=== PATIENT | female | born 1970 | race Caucasian/White ===

== ENCOUNTER → 2017-04-19 | Outpatient (CLI) | payer BC, SELFPAY | PROVIDERS: Visit Provider Internal Medicine Infectious Disease | DX: T36.4X5A Adverse effect of tetracyclines, initial encounter (principal); B96.81 Helicobacter pylori [H. pylori] as the cause of diseases classified elsewhere; E66.09 Other obesity due to excess calories; F17.210 Nicotine dependence, cigarettes, uncomplicated | CPT/HCPCS: 87338 ==

== ENCOUNTER 2017-05-03 01:51 | Emergency (ER) | payer BC, SELFPAY ==
[2017-05-03 02:01] VITALS: BMI 24.1
[2017-05-03 02:02] VITALS: BP 128/95; PULSE 107; RESP 24; TEMP 36.4; O2SAT 95; BMI 24.1
--- NOTE | 2017-05-03 02:13 | XR_ITS ---
XR chest 2V HISTORY: ITS.REASON: C/O COUGH AND FLU LIKE SYMPTOMS ORDERING PHYSICIAN: Gene Herring MD PATIENT AGE: 47 years COMPARISON: 11/20/2016 FINDINGS: The cardiomediastinal silhouette and pulmonary vascularity are within normal limits. The lungs are clear without infiltrates, suspicious nodules, or pleural effusions. No acute bony abnormalities. IMPRESSION: Negative chest, no acute finding
[2017-05-03 02:30] LABS: Basophils # 0.1 K/mm3 (0-0.2); Basophils % 0.4 % (0.1-2.0); Eosinophils # 0.3 K/mm3 (0.0-0.4); Eosinophils % 1.7 % (0.1-12.0); Hematocrit 41.1 % (37.0-47.0); Hemoglobin 14.6 g/dL (12.2-16.2); Lymphocytes # 2.9 K/mm3 (0.7-4.5); Lymphocytes % 19.5 K/mm3 (10-50); Mean Corpuscular HGB Conc 35.5 g/dL (31.8-35.4); Mean Corpuscular Hemoglobin 31.1 pg (27.0-31.2); Mean Corpuscular Volume 87.6 fl (81-99); Mean Platelet Volume 8.4 fl (7.4-10.4); Monocytes # 0.8 K/mm3 (0.1-1.0); Monocytes % 5.2 % (1.7-9.3); Neutrophils % 73.3 % (37.0-80.0); Platelet Count 236 K/mm3 (142-424); Red Blood Count 4.69 M/mm3 (4.20-5.40)
--- NOTE | 2017-05-03 02:31 | HMH.EDGENADL ---
ED Disposition Clinical Impression: Bronchitis Disposition: Home, Self-Care Condition on Discharge: Good Instructions: DI for Acute Bronchitis Additional Instructions: fluids and see pcp for follow up Prescriptions: Benzonatate [Tessalon Perle 100mg Cap] 100 mg PO TID #30 cap cephALEXin [Keflex 500mg Cap] 500 mg PO TID #30 cap Referrals: Pia Rooney PA [Primary Care Provider] - - Critical Care Critical Care Time: No Attestation: On 05/03/17, the high probability of a clinically significant, sudden or life threatening deterioration of the following system(s) required my full and direct attention, intervention and personal management. The time I documented below is in addition to time spent performing reported procedures but includes the following listed in this critical care notation. Medical Decision Making - Medical Records Medical records reviewed: Yes: I reviewed the patient's medical records. Vital Signs: 05/03/17 02:02 05/03/17 03:25 05/03/17 04:37 Temperature 97.5 F L 98 F Temperature Source Oral Oral Pulse Rate [Left Brachial] 107 H 92 H 98 H Respiratory Rate 24 20 18 Blood Pressure [Left Arm] 128/95 100/63 125/77 Blood Pressure Mean [Left Arm] 106 75 93 Blood Pressure Source [Left Arm] Automatic Cuff Automatic Cuff Automatic Cuff Blood Pressure Position [Left Arm] Supine Supine Supine 02 Sat by Pulse Oximetry 95 98 100 Oxygen Delivery Method Room Air Room Air Room Air - Lab Data Lab results reviewed: Yes: I reviewed the patient's lab results. Lab Results 05/03/17 02:13: WBC 15.0 H, RBC 4.69, Hgb 14.6, Hct 41.1, MCV 87.6, MCH 31.1, MCHC 35.5 H, RDW 12.0, Plt Count 236, MPV 8.4, Neut % (Auto) 73.3, Lymph % (Auto) 19.5, [place] % (Auto) 5.2, Eos % (Auto) 1.7, Baso % (Auto) 0.4, Neut # (Auto) 11.0 H, Lymph # (Auto) 2.9, [place] # (Auto) 0.8, Eos # (Auto) 0.3, Baso # (Auto) 0.1, Total Counted 100, Neutrophils % (Manual) 68, Lymphocytes % (Manual) 26, Monocytes % (Manual) 4, Eosinophils % (Manual) 2, Platelet Estimate Normal, Anisocytosis 1+ 05/03/17 02:13: Sodium 135 L, Potassium 3.4 L, Chloride 99, Carbon Dioxide 24, Anion Gap 15.4 H, BUN 20 H, Creatinine 1.06 H, Estimated Creat Clear 67, Estimated GFR 55 L, Est GFR ( Amer) 67, Glucose 113 H, Calcium 9.4, Total Bilirubin 0.5, AST 55 H, ALT 85 H, Alkaline Phosphatase 168 H, Total Protein 8.3 H, Albumin 4.2, Globulin 4.1 H, Albumin/Globulin Ratio 1.0 L, Amylase 22 L, Lipase 93 05/03/17 02:13: Influenza Type A Ag Negative, Influenza Type B Ag Negative 05/03/17 04:35: Urine Color Dark yellow, Urine Appearance Clear, Urine pH 6.0, Ur Specific [place] 1.010, Urine Protein Negative, Urine Glucose (UA) Negative, Urine Ketones 2+, Urine Blood 1+, Urine Nitrate Negative, Urine Bilirubin Negative, Urine Urobilinogen 0.2, Ur Leukocyte Esterase 1+ A, Urine RBC 5-10, Urine WBC 5-10, Ur Squamous Epith Cells 5-10, Urine Bacteria 1+, Hyaline Casts Occasional, Urine Mucus 1+ Result diagrams: 05/03/17 02:13 05/03/17 02:13 Orders (Tests/Meds): ED MEDICATIONS Generic Name Dose Route Start Last Admin Trade Name Freq PRN Reason Stop Dose Admin Sodium Chloride 1,000 mls @ 999 mls/hr 05/03/17 03:30 05/03/17 03:24 Sod Chloride 0.9% 1000ml Bag IV 05/03/17 05:30 999 mls/hr .Q1H1M BARRERA Administration Discontinued Medications Generic Name Dose Route Start Last Admin Trade Name Freq PRN Reason Stop Dose Admin Sodium Chloride 1,000 mls @ 999 mls/hr 05/03/17 02:15 05/03/17 02:17 Sod Chloride 0.9% 1000ml Bag IV 05/03/17 03:15 999 mls/hr .Q1H1M BARRERA Administration ORDERS Category Date Time Status Chest XR 2 view (NOT portable) [XR chest 2V] Stat Exams 05/03/17 02:13 Taken Urine Culture Stat Micro 01/12/18 04:35 Received - Radiology Data #1 Image(s): Chest Image Reviewed: Yes I reviewed the patient's radiology image Preliminary Findings: Normal/NAD - Lorenzo Inquiry Pt receiving controlled substance: No Gener
--- NOTE | 2017-05-03 02:34 | ED_ITS ---
ED Disposition Clinical Impression: Bronchitis Disposition: Home, Self-Care Condition on Discharge: Good Instructions: DI for Acute Bronchitis Additional Instructions: fluids and see pcp for follow up Prescriptions: Benzonatate [Tessalon Perle 100mg Cap] 100 mg PO TID #30 cap cephALEXin [Keflex 500mg Cap] 500 mg PO TID #30 cap Referrals: Pia Rooney PA [Primary Care Provider] - - Critical Care Critical Care Time: No Attestation: On 05/03/17, the high probability of a clinically significant, sudden or life threatening deterioration of the following system(s) required my full and direct attention, intervention and personal management. The time I documented below is in addition to time spent performing reported procedures but includes the following listed in this critical care notation. Medical Decision Making - Medical Records Medical records reviewed: Yes: I reviewed the patient's medical records. Vital Signs: 05/03/17 02:02 05/03/17 03:25 05/03/17 04:37 Temperature 97.5 F L 98 F Temperature Source Oral Oral Pulse Rate [Left Brachial] 107 H 92 H 98 H Respiratory Rate 24 20 18 Blood Pressure [Left Arm] 128/95 100/63 125/77 Blood Pressure Mean [Left Arm] 106 75 93 Blood Pressure Source [Left Arm] Automatic Cuff Automatic Cuff Automatic Cuff Blood Pressure Position [Left Arm] Supine Supine Supine 02 Sat by Pulse Oximetry 95 98 100 Oxygen Delivery Method Room Air Room Air Room Air - Lab Data Lab results reviewed: Yes: I reviewed the patient's lab results. Lab Results 05/03/17 02:13: WBC 15.0 H, RBC 4.69, Hgb 14.6, Hct 41.1, MCV 87.6, MCH 31.1, MCHC 35.5 H, RDW 12.0, Plt Count 236, MPV 8.4, Neut % (Auto) 73.3, Lymph % (Auto ) 19.5, [place] % (Auto) 5.2, Eos % (Auto) 1.7, Baso % (Auto) 0.4, Neut # (Auto) 11.0 H, Lymph # (Auto) 2.9, [place] # (Auto) 0.8, Eos # (Auto) 0.3, Baso # (Auto) 0.1, Total Counted 100, Neutrophils % (Manual) 68, Lymphocytes % (Manual) 26, Monocytes % (Manual) 4, Eosinophils % (Manual) 2, Platelet Estimate Normal, Anisocytosis 1+ 05/03/17 02:13: Sodium 135 L, Potassium 3.4 L, Chloride 99, Carbon Dioxide 24, Anion Gap 15.4 H, BUN 20 H, Creatinine 1.06 H, Estimated Creat Clear 67, Estimated GFR 55 L, Est GFR ( Amer) 67, Glucose 113 H, Calcium 9.4, Total Bilirubin 0.5, AST 55 H, ALT 85 H, Alkaline Phosphatase 168 H, Total Protein 8.3 H, Albumin 4.2, Globulin 4.1 H, Albumin/Globulin Ratio 1.0 L, Amylase 22 L, Lipase 93 05/03/17 02:13: Influenza Type A Ag Negative, Influenza Type B Ag Negative 05/03/17 04:35: Urine Color Dark yellow, Urine Appearance Clear, Urine pH 6.0, Ur Specific [place] 1.010, Urine Protein Negative, Urine Glucose (UA) Negative, Urine Ketones 2+, Urine Blood 1+, Urine Nitrate Negative, Urine Bilirubin Negative, Urine Urobilinogen 0.2, Ur Leukocyte Esterase 1+ A, Urine RBC 5-10, Urine WBC 5-10, Ur Squamous Epith Cells 5-10, Urine Bacteria 1+, Hyaline Casts Occasional, Urine Mucus 1+ Result diagrams: 05/03/17 02:13 05/03/17 02:13 Orders (Tests/Meds): ED MEDICATIONS Generic Name Dose Route Start Last Admin Trade Name Freq PRN Reason Stop Dose Admin Sodium Chloride 1,000 mls @ 999 mls/hr 05/03/17 03:30 05/03/17 03:24 Sod Chloride 0.9% 1000ml Bag IV 05/03/17 05:30 999 mls/hr .Q1H1M BARRERA Administration Discontinued Medications Generic Name Dose Route Start Last Admin Trade Name Freq PRN Reason Stop Dose Admin Sod
[2017-05-03 02:43] LABS: Alanine Aminotransferase 85 U/L (12-78); Albumin Level 4.2 gm/dL (3.4-5.0); Alkaline Phosphatase 168 U/L (46-116); Amylase 22 U/L (25-125); Anion Gap 15.4 mEq/L (5-15); Aspartate Amino Transferase 55 U/L (15-37); Bilirubin,Total 0.5 mg/dL (0.2-1.0); Blood Urea Nitrogen 20 mg/dL (7-18); Calcium 9.4 mg/dL (8.5-10.1); Carbon Dioxide 24 mmol/L (21.0-32.0); Chloride 99 mmol/L (98-107); Creatinine Clearance Estimated 67 mL/min (0-300); Creatinine,Serum 1.06 mg/dL (0.55-1.02); Estimated Glomerular Filt Rate 55 ml/min (>60); GFR (African American) 67 ML/MIN (>60); Globulin 4.1 gm/dl (1.3-3.2); Glucose 113 mg/dL (74-106); Lipase 93 u/L (73-393); Potassium 3.4 mmoL/L (3.5-5.1); Sodium 135 mmol/L (136-145); Total Protein,Serum 8.3 gm/dL (6.4-8.2)
[2017-05-03 02:59] LABS: MANUAL DIFFERENTIAL MANUAL DIFFERENTIAL (MANUAL DIFF)
[2017-05-03 03:25] VITALS: BP 100/63; PULSE 92; RESP 20; O2SAT 98
[2017-05-03 04:19] LABS: Anisocytosis 1+; Eosinophils % 2 % (0-3); Lymphocytes % 26 % (10-50); Monocytes % 4 % (2-9); Neutrophils % 68 % (42-76); Platelet Estimate Normal; Total Cells Counted 100
[2017-05-03 04:37] VITALS: BP 125/77; PULSE 98; RESP 18; TEMP 36.6; O2SAT 100
[2017-05-03 04:43] LABS: Appearance,Urine CLEAR (Clear); Blood, Urine 1+ (Negative); Glucose,Urine (UA) Negative (Negative); Ketones,Urine 2+ (Negative); Leukocyte Esterase,Urine 1+ (Negative); Microscopic, Urine URINE MICROSCOPIC (MICROSCOPIC); Nitrate,Urine Negative (Negative); Protein,Urine Negative (Negative); Urobilinogen,Urine 0.2 EU/dl (0.2)
[2017-05-03 04:51] LABS: Bilirubin,Urine Negative (Negative); Color,Urine Dark Yellow (Yellow)
[2017-05-03 04:52] LABS: Bacteria,Urine 1+ /lpf; Hyaline Casts,Urine Occasional #/lpf (0); Mucus,Urine 1+ /lpf
[2017-05-03 05:11] VITALS: BP 119/78; PULSE 91; RESP 18; TEMP 36.6; O2SAT 99
== END 2017-05-03 05:23 | disposition home or self-care (01) ==
PROVIDERS: Emergency Provider Emergency Medicine; PCP Physician Assistant
DX: J20.9 Acute bronchitis, unspecified (principal); J44.0 Chronic obstructive pulmonary disease with (acute) lower respiratory infection; I10 Essential (primary) hypertension; E11.9 Type 2 diabetes mellitus without complications; Z86.14 Personal history of Methicillin resistant Staphylococcus aureus infection; F17.210 Nicotine dependence, cigarettes, uncomplicated; M54.9 Dorsalgia, unspecified
CPT/HCPCS: 71046; 80053; 81001; 82150; 83690; 85007; 85025; 87086; 87275; 87276; 96361; 96365; 96366; 96367; 99285

== ENCOUNTER → 2017-05-22 09:15 | Outpatient (REF) | payer BC, SELFPAY ==
[2017-05-22 13:59] LABS: Basophils # 0.1 K/mm3 (0-0.2); Basophils % 0.7 % (0.1-2.0); Eosinophils # 0.2 K/mm3 (0.0-0.4); Eosinophils % 1.5 % (0.1-12.0); Hematocrit 40.7 % (37.0-47.0); Hemoglobin 13.6 g/dL (12.2-16.2); Lymphocytes # 3.9 K/mm3 (0.7-4.5); Lymphocytes % 38.1 K/mm3 (10-50); Mean Corpuscular HGB Conc 33.4 g/dL (31.8-35.4); Mean Platelet Volume 9.2 fl (7.4-10.4); Monocytes # 0.6 K/mm3 (0.1-1.0); Monocytes % 5.7 % (1.7-9.3); Neutrophils # 5.5 K/mm3 (1.8-7.8); Neutrophils % 53.9 % (37.0-80.0); Platelet Count 272 K/mm3 (142-424); Red Blood Count 4.38 M/mm3 (4.20-5.40); Red Cell Distribution Width 12.1 % (11.5-17.5); White Blood Count 10.2 K/mm3 (4.8-10.8)
[2017-05-22 14:38] LABS: Alanine Aminotransferase 38 U/L (12-78); Albumin Level 4.3 gm/dL (3.4-5.0); Albumin/Globulin Ratio 1.3 (1.1-1.8); Alkaline Phosphatase 111 U/L (46-116); Anion Gap 12.8 mEq/L (5-15); Aspartate Amino Transferase 23 U/L (15-37); Bilirubin,Total 0.2 mg/dL (0.2-1.0); Blood Urea Nitrogen 24 mg/dL (7-18); Calcium 9.3 mg/dL (8.5-10.1); Carbon Dioxide 30 mmol/L (21.0-32.0); Chloride 104 mmol/L (98-107); Chol/HDL Ratio 5.4 (1-3.5); Cholesterol 188 mg/dL (140-200); Creatinine,Serum 1.14 mg/dL (0.55-1.02); Estimated Glomerular Filt Rate 51 ml/min (>60); GFR (African American) 61 ML/MIN (>60); Globulin 3.3 gm/dl (1.3-3.2); Glucose 112 mg/dL (74-106); HDL Cholesterol 35 mg/dL (29-89); LDL Cholesterol 116 mg/dL (0-130); Potassium 3.8 mmoL/L (3.5-5.1); Sodium 143 mmol/L (136-145); Thyroid Stimulating Hormone 1.42 uIU/ml (0.358-3.740); Total Protein,Serum 7.6 gm/dL (6.4-8.2); Triglycerides 184 mg/dL (30-200); VLDL Cholesterol 37 mg/dL (0-40)
[2017-05-23 08:24] LABS: Testosterone,Total <3 ng/dL (8-48)
[2017-05-24 11:09] LABS: FSH 95.2 mIU/mL (.); LH 32.4 mIU/mL (.); Progesterone <0.1 ng/mL (.); Vitamin D 25 Hydroxy 31.6 ng/mL (30.0-100.0)
[2017-05-26 02:51] LABS: Estrogen 65 pg/mL (.)
== END ==
LOC: LAB 09:15
PROVIDERS: Visit Provider Physician Assistant
DX: I10 Essential (primary) hypertension (principal); R68.82 Decreased libido; Z13.29 Encounter for screening for other suspected endocrine disorder; Z13.21 Encounter for screening for nutritional disorder
CPT/HCPCS: 80053; 80061; 82652; 82672; 83001; 83002; 84144; 84403; 84436; 84443; 85025

== ENCOUNTER → 2017-06-04 10:08 | Outpatient (POV) | payer BC, SELFPAY | PROVIDERS: PCP Physician Assistant; Visit Provider Internal Medicine | DX: Z00.00 Encounter for general adult medical examination without abnormal findings (principal) ==

== ENCOUNTER → 2017-07-08 08:11 | Outpatient (POV) | payer BC, SELFPAY | PROVIDERS: Visit Provider Nurse Practitioner Acute Care | DX: Z00.00 Encounter for general adult medical examination without abnormal findings (principal) ==

== ENCOUNTER → 2017-10-07 08:44 | Outpatient (POV) | payer BC, SELFPAY | PROVIDERS: Visit Provider Nurse Practitioner Acute Care | DX: Z00.00 Encounter for general adult medical examination without abnormal findings (principal) ==

== ENCOUNTER → 2017-10-16 08:59 | Outpatient (REF) | payer BC, SELFPAY ==
[2017-10-16 13:36] LABS: Basophils # 0.1 K/mm3 (0-0.2); Basophils % 0.6 % (0.1-2.0); Eosinophils # 0.1 K/mm3 (0.0-0.4); Eosinophils % 1.3 % (0.1-12.0); Hematocrit 42.5 % (37.0-47.0); Hemoglobin 13.7 g/dL (12.2-16.2); Lymphocytes # 3.3 K/mm3 (0.7-4.5); Lymphocytes % 38.9 K/mm3 (10-50); Mean Corpuscular HGB Conc 32.2 g/dL (31.8-35.4); Mean Corpuscular Hemoglobin 29.6 pg (27.0-31.2); Mean Corpuscular Volume 92.1 fl (81-99); Mean Platelet Volume 8.7 fl (7.4-10.4); Monocytes # 0.4 K/mm3 (0.1-1.0); Monocytes % 4.6 % (1.7-9.3); Neutrophils # 4.7 K/mm3 (1.8-7.8); Neutrophils % 54.7 % (37.0-80.0); Platelet Count 219 K/mm3 (142-424); Red Blood Count 4.61 M/mm3 (4.20-5.40); Red Cell Distribution Width 12.4 % (11.5-17.5); White Blood Count 8.5 K/mm3 (4.8-10.8)
[2017-10-16 13:57] LABS: Hemoglobin A1C 5.2 % (0.0-7.0)
[2017-10-16 14:05] LABS: Alanine Aminotransferase 39 U/L (12-78); Albumin/Globulin Ratio 1.3 (1.1-1.8); Alkaline Phosphatase 88 U/L (46-116); Anion Gap 11.9 mEq/L (5-15); Aspartate Amino Transferase 29 U/L (15-37); Bilirubin,Total 0.2 mg/dL (0.2-1.0); Blood Urea Nitrogen 28 mg/dL (7-18); Calcium 8.5 mg/dL (8.5-10.1); Carbon Dioxide 28 mmol/L (21.0-32.0); Chloride 101 mmol/L (98-107); Chol/HDL Ratio 5.6 (1-3.5); Cholesterol 214 mg/dL (140-200); Creatinine,Serum 0.95 mg/dL (0.55-1.02); Estimated Glomerular Filt Rate 63 ml/min (>60); GFR (African American) 76 ML/MIN (>60); Glucose 98 mg/dL (74-106); HDL Cholesterol 38 mg/dL (29-89); LDL Cholesterol 133 mg/dL (0-130); Potassium 3.9 mmoL/L (3.5-5.1); Sodium 137 mmol/L (136-145); Thyroid Stimulating Hormone 1.75 uIU/ml (0.358-3.740); Triglycerides 216 mg/dL (30-200); VLDL Cholesterol 43 mg/dL (0-40)
[2017-10-17 13:58] LABS: Vitamin D 25 Hydroxy 23.9 ng/mL (30.0-100.0)
== END ==
LOC: LAB 08:59
PROVIDERS: Visit Provider Physician Assistant
DX: R30.9 Painful micturition, unspecified (principal); R60.9 Edema, unspecified; L98.499 Non-pressure chronic ulcer of skin of other sites with unspecified severity
CPT/HCPCS: 80053; 80061; 82652; 83036; 84436; 84443; 85025

== ENCOUNTER → 2017-11-18 13:15 | Outpatient (POV) | payer BC, SELFPAY | PROVIDERS: Visit Provider Nurse Practitioner Acute Care | DX: Z00.00 Encounter for general adult medical examination without abnormal findings (principal) ==

== ENCOUNTER → 2017-11-26 11:59 | Outpatient (CLI) | payer BC, SELFPAY ==
--- NOTE | 2017-11-26 12:00 | XR_ITS ---
EXAM: XR lumbar spine 2-3V HISTORY: Low back pain ITS.REASON: pain ORDERING PHYSICIAN: Sanjuana Denson PATIENT AGE: 47 years COMPARISON: None FINDINGS: There is an anterior bone plate at the lumbosacral junction with fusion of L5-S1 with good alignment. The remaining lumbar spine has an unremarkable appearance. No acute fracture or dislocation. No lytic or blastic change. IMPRESSION: Status post anterior fusion at L5-S1 with good alignment, no acute finding
--- NOTE | 2017-11-26 12:00 | XR_ITS ---
EXAM: XR thoracic spine 3V HISTORY: ITS.REASON: pain Comparison: None FINDINGS: Normal alignment. No fracture or dislocation. No lytic or blastic change. No significant degenerative change. The disc spaces are preserved. IMPRESSION: No acute finding, negative thoracic spine
== END ==
PROVIDERS: PCP Nurse Practitioner Family; Visit Provider Nurse Practitioner Family
DX: M54.5 Low back pain (principal); M54.6 Pain in thoracic spine
CPT/HCPCS: 72072; 72100

== ENCOUNTER → 2017-12-02 13:06 | Outpatient (POV) | payer BC, SELFPAY | PROVIDERS: PCP Nurse Practitioner Family; Visit Provider Nurse Practitioner Acute Care | DX: Z00.00 Encounter for general adult medical examination without abnormal findings (principal) ==

== ENCOUNTER → 2017-12-17 09:15 | Outpatient (POV) | payer BC, SELFPAY | PROVIDERS: PCP Nurse Practitioner Family; Visit Provider Internal Medicine | DX: Z00.00 Encounter for general adult medical examination without abnormal findings (principal) ==

== ENCOUNTER → 2018-02-04 11:03 | Outpatient (REF) | payer BC, SELFPAY ==
[2018-02-04 19:44] LABS: Basophils # 0.1 K/mm3 (0-0.2); Basophils % 0.7 % (0.1-2.0); Eosinophils # 0.1 K/mm3 (0.0-0.4); Eosinophils % 1.4 % (0.1-12.0); Hematocrit 41.4 % (37.0-47.0); Hemoglobin 13.8 g/dL (12.2-16.2); Lymphocytes # 3.2 K/mm3 (0.7-4.5); Lymphocytes % 35.8 K/mm3 (10-50); Mean Corpuscular HGB Conc 33.2 g/dL (31.8-35.4); Mean Corpuscular Hemoglobin 31.1 pg (27.0-31.2); Mean Corpuscular Volume 93.6 fl (81-99); Mean Platelet Volume 9.1 fl (7.4-10.4); Monocytes # 0.4 K/mm3 (0.1-1.0); Monocytes % 4.5 % (1.7-9.3); Neutrophils # 5.2 K/mm3 (1.8-7.8); Neutrophils % 57.6 % (37.0-80.0); Platelet Count 266 K/mm3 (142-424); Red Blood Count 4.43 M/mm3 (4.20-5.40); Red Cell Distribution Width 12.4 % (11.5-17.5)
[2018-02-04 20:20] LABS: Alanine Aminotransferase 36 U/L (12-78); Albumin Level 4.2 gm/dL (3.4-5.0); Albumin/Globulin Ratio 1.3 (1.1-1.8); Alkaline Phosphatase 103 U/L (46-116); Aspartate Amino Transferase 23 U/L (15-37); Bilirubin,Total 0.3 mg/dL (0.2-1.0); Blood Urea Nitrogen 20 mg/dL (7-18); C-Reactive Protein 0.4 mg/L (0.0-0.9); Carbon Dioxide 28 mmol/L (21.0-32.0); Chloride 104 mmol/L (98-107); Chol/HDL Ratio 4.9 (1-3.5); Cholesterol 180 mg/dL (140-200); Creatinine,Serum 0.94 mg/dL (0.55-1.02); Estimated Glomerular Filt Rate 63 ml/min (>60); GFR (African American) 77 ML/MIN (>60); Globulin 3.2 gm/dl (1.3-3.2); Glucose 91 mg/dL (74-106); HDL Cholesterol 37 mg/dL (29-89); LDL Cholesterol 106 mg/dL (0-130); Sodium 142 mmol/L (136-145); T4 (Thyroxine) 12.4 ug/dl (4.7-13.3); Thyroid Stimulating Hormone 2.13 uIU/ml (0.358-3.740); Total Protein,Serum 7.4 gm/dL (6.4-8.2); Triglycerides 187 mg/dL (30-200); VLDL Cholesterol 37 mg/dL (0-40)
[2018-02-04 21:06] LABS: Erythrocyte Sedimentation Rate 16 mm/hr (0-20)
[2018-02-06 10:15] LABS: RA Latex Turbid. <10.0 IU/mL (0.0-13.9)
[2018-02-06 10:16] LABS: Vitamin D 25 Hydroxy 42.1 ng/mL (30.0-100.0)
[2018-02-06 13:11] LABS: Anti-Centromere B Antibodies <0.2 AI (0.0-0.9); Anti-Jo-1 <0.2 AI (0.0-0.9); Anti-Smith Antibody <0.2 AI (0.0-0.9); Antichromatin Antibodies <0.2 AI (0.0-0.9); Antiscleroderma-70 Antibodies <0.2 AI (0.0-0.9); RNP Antibodies <0.2 AI (0.0-0.9); Sjogren's Anti-SS-A <0.2 AI (0.0-0.9); Sjogren's Anti-SS-B <0.2 AI (0.0-0.9)
[2018-02-07 09:01] LABS: Anti-Cyclic Citrullinated Pept 14 units (0-19); Anti-DNA (DS) Ab Qn 4 IU/mL (0-9)
== END ==
LOC: LAB 11:03
PROVIDERS: Visit Provider Physician Assistant
DX: I10 Essential (primary) hypertension (principal); E55.9 Vitamin D deficiency, unspecified; E78.5 Hyperlipidemia, unspecified; M25.50 Pain in unspecified joint
CPT/HCPCS: 80053; 80061; 82652; 84436; 84443; 85025; 85651; 86140; 86200; 86225; 86235; 86431

== ENCOUNTER → 2018-02-06 07:12 | Outpatient (CLI) | payer BC, SELFPAY ==
--- NOTE | 2018-02-06 07:18 | XR_ITS ---
XR knee RT 4V HISTORY: ITS.REASON: Right Knee Pain ORDERING PHYSICIAN: ELI Mcneill PATIENT AGE: 47 years COMPARISON: None FINDINGS: No fracture or dislocation. No lytic or blastic change. Normal mineralization. No significant arthritic changes evident. No other significant findings IMPRESSION: Negative Knee
== END ==
PROVIDERS: PCP Physician Assistant; Visit Provider Physician Assistant
DX: M25.561 Pain in right knee (principal); M25.50 Pain in unspecified joint
CPT/HCPCS: 73564

== ENCOUNTER → 2018-02-24 09:33 | Outpatient (POV) | payer BC, SELFPAY | PROVIDERS: Visit Provider Nurse Practitioner Acute Care | DX: Z00.00 Encounter for general adult medical examination without abnormal findings (principal) ==

== ENCOUNTER 2018-03-05 08:00 | Outpatient (RCR) | payer BC, SELFPAY ==
--- NOTE | 2018-02-12 17:20 | HMH.PTOPEV ---
PT Outpatient Evaluation Rehab PT Outpatient Evaluation Start: 02/12/18 16:58 Freq: Status: Active Protocol: Document 02/12/18 16:59 MERI (Rec: 02/12/18 17:20 JAMESAB [id number]) Electronically Signed By Jose Anderson, PT 02/12/18 16:59 Outpatient Therapy Subjective History Subjective History This is the initial OP Physical Therapy evaluation for Yajaira Reed. Pt is a 47 y /o female referred to PT for c /o L hip and R knee pain. Pt reports she had L5S1 fusion 15 years ago. Pt reports she has chronic SIJ issues and can tell when she is out of alignment . Pt rpeorts he began having R knee pain ~ 1 month ago w/ insidious onset. Pt reports ~ 4-5 months ago pt had plantar wart removed causing her to limp. Chief Complaint Pain Stiff Symptom Type Ache Throb Sharp Shooting Symptoms Relieved By Rest/Positioning Symptoms Aggravated By Physical Activity Walking Prior Functional Limitations None Current Functional Limitations Standing Squatting Recreation Activity Walking Stairs Symptom Description Constant but Variable Level of pain today (0-10) 5 Pain scale - at its best (0-10) 2 Pain scale - at its worst (0-10) 8 Hip/Knee Eval Gait Observation General Gait Pattern Observation Antalgic Gait Assistive Device Assistive Devices None / NA Palpation Tenderness left Hip Palpation Findings Tenderness right Knee Palpation Finding Tenderness Knee Palpation Overall Comment TTP med Jt line and Pes Anserine MMT bilateral Hip Strength Reason Not Measured WFL Knee Strength Reason Not Measured WFL ROM Hip ROM Reason Not Measured Within Functional Limits Knee ROM Reason Not Measured Within Functional Limits Special Tests Hip Gayla Test Positive Left Hip Scouring (Quadrant) Test Positive Left Knee Anterior Babs Test Negative Right Knee Pivot Shift Test Negative Right Knee Valgus Stress Test Negative Right Knee Varus Stress Test Negative Right Knee Laura Test
== END 2018-03-05 08:01 | disposition home or self-care (01) ==
LOC: PT 08:00
PROVIDERS: PCP Physician Assistant; Visit Provider Physician Assistant
DX: M25.561 Pain in right knee (principal); M25.552 Pain in left hip
CPT/HCPCS: 97010; 97014; 97033; 97035; 97110; 97140; 97163; G0283

== ENCOUNTER → 2018-06-16 15:12 | Outpatient (CLI) | payer BC, SELFPAY ==
[2018-06-16 15:52] LABS: Amphetamine/Metha Screen,Urine Negative ng/mL (<1000); Barbiturates Screen,Urine Negative ng/mL (<200); Benzodiazepines Screen,Urine Negative ng/mL (<200); Cannabinoid Screen,Urine Negative ng/mL (<50); Cocaine Screen,Urine Negative ng/mL (<300); Methadone Screen,Urine Negative ng/mL (<300); Opiate Screen,Urine Negative ng/mL (<300); Phencyclidine Screen,Urine Negative ng/mL (<25)
[2018-06-20 16:19] LABS: Alprazolam Negative (Cutoff=100); Benzodiazepines Positive ng/mL (Cutoff=100); Clonazepam Positive (.); Flurazepam Negative (Cutoff=100); Lorazepam Negative (Cutoff=100); Midazolam Negative (Cutoff=100); Temazepam Negative (Cutoff=100); Triazolam Negative (Cutoff=100)
[2018-06-20 17:39] LABS: Clonazepam Confirm 524 ng/mL (Cutoff=100)
== END ==
PROVIDERS: Visit Provider Physician Assistant
DX: R30.0 Dysuria (principal); Z79.899 Other long term (current) drug therapy
CPT/HCPCS: 80305; 80346; 87086

== ENCOUNTER → 2018-06-18 13:20 | Outpatient (CLI) | payer BC, SELFPAY | PROVIDERS: Visit Provider Physician Assistant | DX: R10.2 Pelvic and perineal pain (principal) | CPT/HCPCS: 87086 ==

== ENCOUNTER → 2018-06-26 13:30 | Outpatient (CLI) | payer BC, SELFPAY ==
--- NOTE | 2018-06-26 13:33 | CT_ITS ---
CT abdomen pelvis wo con INDICATION: Right lower quadrant pain and hematuria difficulty voiding 1 week.. ITS.REASON: right flank pain, hematuria ORDERING PHYSICIAN: ELI Mcneill PATIENT AGE: 48 years COMPARISON: 09/28/2015. TECHNIQUE: No oral nor IV contrast utilized Axial images obtained with sagittal and coronal reformats. All CT scans at the facility use one or more dose reduction, viz: automated exposure control, ma/kV adjustment per patient size (including targeted exams where dose is matched to indication, i.e. head), or iterative reconstruction technique. FINDINGS: Lung bases appear. No active disease . Tiny 3.3 mm nodule at the left lung base is not changed significantly since 2016. Can be followed. Abdomen/pelvis. Lack of oral and IV contrast decreases sensitivity. Images the liver, spleen,, adrenals appear satisfactory with no significant change. Pancreas. Noncontrast images pancreas Appears stable. No focal lesions. No significant ductal dilatation. Gallbladder surgically removed. No biliary ductal dilatation of significance. No retroperitoneal nor mesenteric nor abdominal nor inguinal adenopathy. tract. No urinary tract obstruction or calculi. Kidneys unremarkable. Ureters unremarkable, stable. Pelvis. Multiple phleboliths pelvic basin similar to previous studies. Hysterectomy. Uterus removed. No adnexal masses. Bladder unremarkable. No free fluid at pelvis or abdomen. No free air. GI tract. Stomach duodenal loop unremarkable. Proximal small bowel upper normal caliber and upper normal wall thickness. Distal small bowel unremarkable. Terminal ileum unremarkable. Appendix normal. No evidence of appendicitis. Large bowel. Moderate stool and gas throughout the right and transverse colon. No bowel dilatation or obstruction. Scattered diverticuli throughout the sigmoid colon. No diverticulitis. Upper normal wall thickness sigmoid colon may merely reflect lack of distention. Bones. Previous anterior discectomy and fusion at L5/S1. Mild disc space narrowing T11/12. These features unchanged since prior study no significant new osseous findings. Degenerative facet changes lower L-spine. Slight wispy character at the left groin may reflect previous hernia repair. Correlation required. IMPRESSION 1. no acute findings abdomen or pelvis. No inflammatory changes a right abdomen/RLQ ... Appendix normal. Terminal ileum unremarkable 2. No urinary tract obstruction or calculi. 3. Colonic diverticulosis sigmoid colon but no diverticulitis. Upper normal wall thickness at sigmoid colon most likely reflecting lack of distention. . No significant new findings compared to 2016 CT abdomen.
== END ==
PROVIDERS: PCP Physician Assistant; Visit Provider Physician Assistant
DX: R10.9 Unspecified abdominal pain (principal); R31.9 Hematuria, unspecified
CPT/HCPCS: 74176

== ENCOUNTER → 2018-10-06 19:45 | Outpatient (CLI) | payer BC, SELFPAY ==
[2018-10-06 20:45] LABS: Basophils # 0.1 K/mm3 (0-0.2); Basophils % 0.8 % (0.1-2.0); Eosinophils # 0.1 K/mm3 (0.0-0.4); Eosinophils % 1.5 % (0.1-12.0); Hematocrit 43.6 % (37.0-47.0); Hemoglobin 14.1 g/dL (12.2-16.2); Lymphocytes # 2.7 K/mm3 (0.7-4.5); Lymphocytes % 38.9 % (10-50); Mean Corpuscular HGB Conc 32.3 g/dL (31.8-35.4); Mean Corpuscular Hemoglobin 28.6 pg (27.0-31.2); Mean Corpuscular Volume 88.3 fl (81-99); Mean Platelet Volume 8.5 fl (7.4-10.4); Monocytes # 0.5 K/mm3 (0.1-1.0); Monocytes % 7.3 % (1.7-9.3); Neutrophils # 3.6 K/mm3 (1.8-7.8); Neutrophils % 51.6 % (37.0-80.0); Platelet Count 213 K/mm3 (142-424); Red Blood Count 4.94 M/mm3 (4.20-5.40); Red Cell Distribution Width 12.3 % (11.5-17.5)
[2018-10-06 23:15] LABS: Alanine Aminotransferase 37 U/L (12-78); Albumin Level 3.9 gm/dL (3.4-5.0); Albumin/Globulin Ratio 1.2 (1.1-1.8); Alkaline Phosphatase 95 U/L (46-116); Aspartate Amino Transferase 27 U/L (15-37); Bilirubin,Total 0.5 mg/dL (0.2-1.0); Blood Urea Nitrogen 21 mg/dL (7-18); Calcium 9.2 mg/dL (8.5-10.1); Carbon Dioxide 26 mmol/L (21.0-32.0); Chloride 105 mmol/L (98-107); Estimated Glomerular Filt Rate 66 ml/min (>60); GFR (African American) 80 ML/MIN (>60); Globulin 3.2 gm/dl (1.3-3.2); Glucose 104 mg/dL (74-106); Sodium 143 mmol/L (136-145); Total Protein,Serum 7.1 gm/dL (6.4-8.2)
== END ==
PROVIDERS: Visit Provider Physician Assistant
DX: R53.83 Other fatigue (principal); D72.829 Elevated white blood cell count, unspecified
CPT/HCPCS: 80053; 85025

== ENCOUNTER → 2018-10-27 08:51 | Outpatient (CLI) | payer BC, SELFPAY ==
--- NOTE | 2018-10-27 08:52 | CA_ITS ---
PROCEDURE: 2-D M-mode and color Doppler study INDICATIONS FOR THE TEST: Chest pain+ COPD+ Heart Murmur Tobacco Smoking Palpitations Fatigue Syncope Edema Hypertension+Diabetes Mellitus Rheumatic Fever SOB+TREJO+Obesity Hyperlipidemia+ Family History HD Additional History agusto PATIENT INFORMATION HEIGHT: 65 WEIGHT:146 GENDER: Female B/P:125/90 2-D/M-MODE INTERPRETATION: 2-D MEASUREMENTS OBSERVED VALUES IN CMS Right Ventricular Dimension (RVDd) 2.5 Interventricular Septum (Thickness)(IVsd) 0.6 Left Ventricular Internal Dimensions(LVIDd) 3.9 Left Ventricular Posterior Wall (Thickness)(LVPWd) 0.8 Aortic Root 2.6 Aortic Cusp Separation 1.8 Left Atrial Dimensions (LAD) 3.1 2D 1. Left atrium is normal size, left ventricle is normal size, there is no concentric left ventricular hypertrophy, visually estimated ejection fraction 55% with no regional wall motion abnormality. 2. The right atrium and right ventricle are normal size and contractility. 3. The aortic valve is minimally thickened and fibrosed. 4. The mitral and tricuspid valvular grossly normal. 5. The pulmonic valve is poorly visualized. 6. No significant pericardial effusion noted. DOPPLER INTERROGATION: Doppler interrogation of the aortic, mitral and tricuspid valvular presence of mild mitral and tricuspid regurgitation, tricuspid regurgitation jet velocity is inadequate for calculation of the right ventricular systolic pressure, diastolic parameters are within normal range. Inferior vena cava is normal size with normal limits collapse. CONCLUSION: 1. Normal left ventricular size, preserved left ventricular systolic function, visually estimated ejection fraction 55% with no regional wall motion abnormality, diastolic parameters are within normal range. 2. Mild mitral and tricuspid regurgitation 3. No significant pericardial effusion noted, inferior vena cava is normal size with normal inspiratory collapse.
== END ==
PROVIDERS: PCP Physician Assistant; Visit Provider Nurse Practitioner Family
DX: R07.89 Other chest pain (principal); R06.00 Dyspnea, unspecified; E78.5 Hyperlipidemia, unspecified; I10 Essential (primary) hypertension; J44.9 Chronic obstructive pulmonary disease, unspecified; K21.9 Gastro-esophageal reflux disease without esophagitis; K22.4 Dyskinesia of esophagus; M79.7 Fibromyalgia; G47.33 Obstructive sleep apnea (adult) (pediatric)
CPT/HCPCS: 93306

== ENCOUNTER → 2018-11-24 11:52 | Outpatient (CLI) | payer BC, SELFPAY | LOC: RT 11:53 | PROVIDERS: PCP Physician Assistant; Visit Provider Nurse Practitioner Family | DX: R55 Syncope and collapse (principal); R06.09 Other forms of dyspnea; R07.2 Precordial pain; I10 Essential (primary) hypertension; Z91.81 History of falling | CPT/HCPCS: 93270 ==

== ENCOUNTER → 2018-11-28 10:00 | Outpatient (CLI) | payer BC, SELFPAY ==
--- NOTE | 2018-11-28 10:05 | CI_ITS ---
Cerebrovascular Exam Indications: 780.2 Syncope and collapse. 780.4 Dizziness and giddiness. 780.4 Dizziness and giddiness. IMPRESSIONS 1. The right internal carotid artery reveals no evidence of plaque or stenosis. 2. The left internal carotid artery reveals no evidence of plaque or stenosis. 3. The bilateral vertebral arteries are patent with normal antegrade flow. Carotid duplex study. Complete study and Doppler flow study including spectral analysis, color and starks scale imaging. Location: Vascular laboratory. Patient status: Outpatient. Tables: Arterial flow: + +--------+--------+ Location V sys V ed + +--------+--------+ Right CCA - proximal 69.9cm/s 29.9cm/s + +--------+--------+ Right CCA - distal 77cm/s 25.9cm/s + +--------+--------+ Right ECA 75.4cm/s -------- + +--------+--------+ Right ICA - proximal 68.4cm/s 32.2cm/s + +--------+--------+ Right ICA - mid 94.3cm/s 40.1cm/s + +--------+--------+ Right ICA - distal 73.1cm/s 34.6cm/s + +--------+--------+ Right vertebral 44.8cm/s -------- + +--------+--------+ Left CCA - proximal 94.3cm/s 36.9cm/s + +--------+--------+ Left CCA - distal 88cm/s 38.5cm/s + +--------+--------+ Left ECA 117cm/s -------- + +--------+--------+ Left ICA - proximal 63.6cm/s 29.1cm/s + +--------+--------+ Left ICA - mid 81.7cm/s 40.9cm/s + +--------+--------+ Left ICA - distal 69.1cm/s 32.2cm/s + +--------+--------+ Left vertebral 44cm/s -------- + +--------+--------+ Velocity ratios: + + + + + + Right, V sys Right, V ed Left, V sys Left, V ed + + + + + + Max ICA/dist CCA 1.22 1.55 0.93 1.06 + + + + + + (Report amended ) Electronically signed by: Gabe Solorzano [id number]
== END ==
LOC: RT 10:04
PROVIDERS: PCP Physician Assistant; Visit Provider Nurse Practitioner Family
DX: R06.09 Other forms of dyspnea (principal); I10 Essential (primary) hypertension; R07.2 Precordial pain; Z91.81 History of falling
CPT/HCPCS: 93880

== ENCOUNTER → 2019-02-16 09:25 | Outpatient (CLI) | payer BC, SELFPAY ==
--- NOTE | 2019-02-16 09:34 | XR_ITS ---
PROCEDURE: XR CHEST 2V CLINICAL HISTORY: cough, fever COMPARISON: CXR2V XR chest 2V from 11/25/2017 CXR2V XR chest 2V from 03/20/2018 Chest from 10/18/2018 FINDINGS: The cardiomediastinal silhouette and pulmonary vascularity are within normal limits. The lungs are clear without infiltrates, suspicious nodules, or pleural effusions. No acute bony abnormalities. IMPRESSION: No acute findings. Dictated by: Gabe Solorzano MD 02/16/2019 11:53 Electronically signed by Gabe Solorzano MD in [place] 02/16/2019 11:53
== END ==
PROVIDERS: PCP Physician Assistant; Visit Provider Physician Assistant
DX: R05 Cough (principal)
CPT/HCPCS: 71046

== ENCOUNTER → 2019-03-02 14:52 | Outpatient (CLI) | payer BC, SELFPAY ==
--- NOTE | 2019-03-02 14:55 | XR_ITS ---
PROCEDURE: XR LUMBAR SPINE 2-3V CLINICAL INDICATION: BAck pain, radiating down legs Low back pain radiating down the legs. Prior fusion COMPARISON: SPLUMBLM XR lumbar spine 2-3V from 11/26/2017 FINDINGS: Prior anterior fusion at L5-S1 with good alignment. No fracture or dislocation. No lytic or blastic change. There is mild degenerative disc disease at L4-L5. Mild degenerative changes noted of the SI joints. IMPRESSION: Mild degenerative disc disease L4-L5 with mild degenerative changes of the SI joints. Prior fusion with good alignment Dictated by: Gabe Solorzano MD 03/02/2019 16:19 Electronically signed by Gabe Solorzano MD in [facility] 03/02/2019 16:19
--- NOTE | 2019-03-02 14:55 | XR_ITS ---
PROCEDURE: XR THORACIC SPINE 3V CLINICAL INDICATION: Back pain, radiating into chest COMPARISON: [id number] XR thoracic spine 3V from 11/26/2017 FINDINGS: There is normal alignment. No fracture or dislocation. No lytic or blastic change. Minimal spurring is noted in the lower thoracic spine with minimal degenerative disc disease. There is straightening of the lower thoracic lordosis. IMPRESSION: Mild degenerative changes, no change with no acute finding Dictated by: Gabe Solorzano MD 03/02/2019 16:14 Electronically signed by Gabe Solorzano MD in [facility] 03/02/2019 16:14
== END ==
LOC: RAD 14:53
PROVIDERS: PCP Physician Assistant; Visit Provider Physician Assistant
DX: R07.9 Chest pain, unspecified (principal); M54.9 Dorsalgia, unspecified; M54.6 Pain in thoracic spine; M54.5 Low back pain; R06.2 Wheezing; M62.830 Muscle spasm of back
CPT/HCPCS: 72072; 72100

== ENCOUNTER → 2019-03-12 08:47 | Outpatient (POV) | payer BC, SELFPAY ==
[2019-03-12 09:08] VITALS: BP 139/95; PULSE 94; RESP 18; O2SAT 99; BMI 25.9
--- NOTE | 2019-03-12 09:50 | HMH.PMCON ---
Assessment and Plan (1) Neck pain Current visit: Yes Status: Chronic Category: Medical Code(s): M54.2 - Cervicalgia (2) Cervical radiculopathy Current visit: Yes Status: Chronic Category: Medical Code(s): M54.12 - Radiculopathy, cervical region (3) Mid back pain Current visit: Yes Status: Chronic Category: Medical Code(s): M54.9 - Dorsalgia, unspecified (4) Lumbar radiculopathy Current visit: Yes Status: Chronic Category: Medical Code(s): M54.16 - Radiculopathy, lumbar region (5) Low back pain Current visit: Yes Status: Acute Category: Medical Code(s): M54.5 - Low back pain - Assessment and plan all Dx Assessment and Plan for all problems:: The patient has not had any recent imaging of her spine. I do think she would benefit from an MRI of her cervical thoracic and lumbar spine, as she is having pain in all areas. We will get her imaging and see her back in the clinic to discuss the plan of care. In the meantime, she will continue with anti-inflammatories and home stretching program. Patient is not interested in injective therapy at this time or medication management. Dr. Payan has reviewed this note and agrees with this plan of care. This note was dictated using voice recognition software and make contain errors or omissions. HPI - Data of Consult Patient: new to practice Consult date: 03/12/19 Requesting Physician: Kristie Fontenot APRN Primary Care Provider: ELI Cantu - Consult Narrative Reason for consult: Neck and low back pain History of present illness: Ms. Reed is a 49 year old female who presents today for complaints of neck pain, along with mid thoracic and low back pain. Patient says that her pain radiates to bilateral arms and bilateral legs. She says that she has had chronic pain for many years. She also reports that she has a diagnosis of osteoarthritis and fibromyalgia. Patient says recently she was diagnosed with esophageal dysphasia and since then has started to develop severe spasms which radiate into her mid back area causing her to have severe back pain. 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 Patient says she gets little to no sleep due to all of her pain. Patient also reports that she did have a lumbar fusion in [place] in 2003. Since that surgery she says she is continued to have severe pain. Patient says her pain is worse with standing and walking and improves when sitting. She says that the pain is throbbing and constant in nature. She has had injections in the past and has gotten little to no relief. She is also says that she has been told she needs a hip replacement, but says she feels she is too young to undergo this type of procedure at this time. Patient says she has had multiple SI joint injections that have not given her any relief. She does rate her pain an 8 out of 10 today. Patient says she has tried taking oral opiates in the past but has not gotten any relief. She is currently on gabapentin and Flexeril. She says these are not giving her any relief. Patient does not have any recent imaging of her spine. She is scheduled to undergo CT scan of her chest tomorrow. Patient says that she has not had an MRI since before her surgical procedure of her spine in 2003. She does continue with home stretching programs and anti-inflammatories. CC: Kristie Fontenot APRN [facility] History I have reviewed the patient's past medical history: Yes 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: Reports:: Anxiety, Asthma, Congestive Heart Failure, Chronic Obstructive Pulmonary Disease (COPD), Depression, Hyperlipidemia, Hypertension, Lung Disease Denies:: Cancer, Diabetes Mellitus Type 1, Diabetes Mellitus Type 2, Home Oxygen, Internal Pacemaker, MRSA, Seizures *Have you ever received a pneumonia vaccine?: Yes *Have you received a flu vaccine this season?: Yes Other 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: Reports: Other Other Surgeries: Yes: Cardiac Catheterization, Cholecystectomy, Col[place]
--- NOTE | 2019-03-12 09:54 | P.CONS_ITS ---
Assessment and Plan (1) Neck pain Current visit: Yes Status: Chronic Category: Medical Code(s): M54.2 - Cervicalgia (2) Cervical radiculopathy Current visit: Yes Status: Chronic Category: Medical Code(s): M54.12 - Radiculopathy, cervical region (3) Mid back pain Current visit: Yes Status: Chronic Category: Medical Code(s): M54.9 - Dorsalgia, unspecified (4) Lumbar radiculopathy Current visit: Yes Status: Chronic Category: Medical Code(s): M54.16 - Radiculopathy, lumbar region (5) Low back pain Current visit: Yes Status: Acute Category: Medical Code(s): M54.5 - Low back pain - Assessment and plan all Dx Assessment and Plan for all problems:: The patient has not had any recent imaging of her spine. I do think she would benefit from an MRI of her cervical thoracic and lumbar spine, as she is having pain in all areas. We will get her imaging and see her back in the clinic to discuss the plan of care. In the meantime, she will continue with anti- inflammatories and home stretching program. Patient is not interested in injective therapy at this time or medication management. Dr. Payan has reviewed this note and agrees with this plan of care. This note was dictated using voice recognition software and make contain errors or omissions. HPI - Data of Consult Patient: new to practice Consult date: 03/12/19 Requesting Physician: Kristie Fontenot APRN Primary Care Provider: ELI Cantu - Consult Narrative Reason for consult: Neck and low back pain History of present illness: Ms. Reed is a 49 year old female who presents today for complaints of neck pain, along with mid thoracic and low back pain. Patient says that her pain radiates to bilateral arms and bilateral legs. She says that she has had chronic pain for many years. She also reports that she has a diagnosis of osteoarthritis and fibromyalgia. Patient says recently she was diagnosed with esophageal dysphasia and since then has started to develop severe spasms which radiate into her mid back area causing her to have severe back pain. 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 Patient says she gets little to no sleep due to all of her pain. Patient also reports that she did have a lumbar fusion in [place] in 2003. Since that surgery she says she is continued to have severe pain. Patient says her pain is worse with standing and walking and improves when sitting. She says that the pain is throbbing and constant in nature. She has had injections in the past and has gotten little to no relief. She is also says that she has been told she needs a hip replacement, but says she feels she is too young to undergo this type of procedure at this time. Patient says she has had multiple SI joint injections that have not given her any relief. She does rate her pain an 8 out of 10 today. Patient says she has tried taking oral opiates in the past but has not gotten any relief. She is currently on gabapentin and Flexeril. She says these are not giving her any relief. Patient does not have any recent imaging of her spine. She is scheduled to undergo CT scan of her chest tomorrow. Patient says that she has not had an MRI since before her surgical procedure of her spine in 2003. She does continue with home stretching programs and anti-inflammatories. CC: Kristie Fontenot APRN [facility] History I have reviewed the patient's past medical history: Yes 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: Reports:: Anxiety, Asthma, Congestive Heart Failure, Chronic Obstructive Pulmonary Disease (COPD), Depression, Hyperlipidemia, Hypertension, Lung Disease Denies:: Cancer, Diabe
--- NOTE | 2019-03-12 10:22 | P.CONS_ITS ---
[facility] History 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: Reports:: Anxiety, Asthma, Congestive Heart Failure, Chronic Obstructive Pulmonary Disease (COPD), Depression, Hyperlipidemia, Hypertension, Lung Disease Denies:: Cancer, Diabetes Mellitus Type 1, Diabetes Mellitus Type 2, Home Oxygen, Internal Pacemaker, MRSA, Seizures *Have you ever received a pneumonia vaccine?: Yes *Have you received a flu vaccine this season?: Yes Other 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: Reports: Other Other Surgeries: Yes: Cardiac Catheterization, Cholecystectomy, Colonoscopy, EGD, Hysterectomy-Total, Hysterectomy-Partial, Plastic Surgery, Sinus Surgery, Other (spinal fusion,plastic surgery on chin). No: Pacemaker Amputation: No Fractures: No - *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 Smoking Status: Former smoker Tobacco Type: cigarettes # Packs/Day (cigarettes): 1 Alcohol Intake: never Alcohol Intake Frequency:: a few times a month Substance Use Type: denies use *Occupational Status:: employed Housing: house Household Members: other *Travel in the last 8 weeks: None - Psychiatric History Pschychiatric History:: Reports:: Anxiety, Depression Family Hx:: Cancer, Coronary Artery Disease, Hypertension
== END ==
PROVIDERS: PCP Physician Assistant; Visit Provider Clinical Nurse Specialist Family Health
DX: M54.2 Cervicalgia (principal); M54.5 Low back pain; M54.12 Radiculopathy, cervical region; M54.16 Radiculopathy, lumbar region
CPT/HCPCS: 99202

== ENCOUNTER → 2019-03-13 07:53 | Outpatient (CLI) | payer BC, SELFPAY ==
--- NOTE | 2019-03-13 07:54 | CT_ITS ---
PROCEDURE: CT CHEST WO CON CLINICAL INDICATION: back pain, wheezing, chest pain r/o pneumonia COMPARISON: No exams were available for comparison TECHNIQUE: Axial images obtained with sagittal and coronal reformats. All CT scans at the facility use one or more dose reduction, viz: automated exposure control, ma/kV adjustment per patient size (including targeted exams where dose is matched to indication, i.e. head), or iterative reconstruction technique. FINDINGS: HEART: Unremarkable. Normal heart size. No significant pericardial effusion. MEDIASTINAL AND HILAR STRUCTURES: There are couple normal size nodes in the prevascular space of the superior mediastinum. PULMONARY ARTERIES: No pulmonary embolus evident. AORTA: No acute finding. No thoracic aortic aneurysm or dissection evident LUNGS:There is minimal scarring or atelectasis at the left costophrenic angle. The lung velasquez are clear of infiltrate. There is a 3-4 mm noncalcified nodule left lower lobe subpleural location. PLEURAL SPACES: No significant effusion. No evidence of pneumothorax. BONY STRUCTURES: There are mild multilevel degenerate changes of the thoracic spine. LYMPH NODES: No enlarged lymph nodes evident. UPPER ABDOMEN: Unremarkable. Post cholecystectomy ADDITIONAL FINDINGS: No other significant abnormalities. IMPRESSION: Essentially unremarkable study except for tiny noncalcified pulmonary nodule, suggest follow-up CT scan chest in 1 year for continuing evaluation. Dictated by: Dr. Jamar Chance MD 03/13/2019 08:[address] Jamar Chance MD in [place] 03/13/2019 08:22
== END ==
LOC: RAD 07:53
PROVIDERS: PCP Physician Assistant; Visit Provider Nurse Practitioner Family
DX: R07.9 Chest pain, unspecified (principal); M54.9 Dorsalgia, unspecified
CPT/HCPCS: 71250

== ENCOUNTER → 2019-03-17 07:43 | Outpatient (CLI) | payer BC, SELFPAY ==
--- NOTE | 2019-03-17 07:45 | MR_ITS ---
PROCEDURE: MR THORACIC SPINE WO CON CLINICAL INDICATION: NECK, BACK PAIN Mid and low back pain COMPARISON: XR THORACIC SPINE 3V from 03/02/2019 TECHNIQUE: Routine multiplanar multi echo sequences are performed without gadolinium enhancement. FINDINGS: There is straightening of the lower thoracic kyphosis. No fracture or dislocation is evident. No bony destructive process. No disc herniation is evident. There is mild degenerative disc disease with minimal bulging disc at T11-T12. The spinal cord has an unremarkable appearance. IMPRESSION: 1. No acute finding. 2. Mild degenerative disc disease T11-T12 Dictated by: Gabe Solorzano MD 03/18/2019 11:03 Electronically signed by Gabe Solorzano MD in [place] 03/18/2019 11:03
--- NOTE | 2019-03-17 07:53 | MR_ITS ---
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 3-D MIP and myelographic images are also rendered and reviewed FINDINGS: Spinal cord ends at the T12-L1 level. There is mild degenerative disc disease T11-T12 with minimal bulging disc. T12-L1, L1-L2, L2-L3, and L3-L4 have an unremarkable appearance. L4-5: Mild concentric bulging disc along with facet and ligamentum hypertrophy with mild bilateral foraminal narrowing. L5-S1: Status post anterior fusion with an anterior bone plate and screws within the vertebral bodies at L5-S1 with loss of the disc space. Mild bilateral foraminal narrowing from facet hypertrophic change. No extruded herniated disc canal stenosis or other acute anomaly. IMPRESSION: 1. L4-5: Mild concentric bulging disc along with facet and ligamentum hypertrophy with mild bilateral foraminal narrowing. 2. L5-S1: Status post anterior fusion with an anterior bone plate and screws within the vertebral bodies at L5-S1 with loss of the disc space. Mild bilateral foraminal narrowing from facet hypertrophic change. 3. No extruded herniated disc canal stenosis or other acute anomaly. Dictated by: Gabe Solorzano MD 03/18/2019 11:07 Electronically signed by Gabe Solorzano MD in [place] 03/18/2019 11:07
== END ==
LOC: RAD 07:43
PROVIDERS: PCP Physician Assistant; Visit Provider Clinical Nurse Specialist Family Health
DX: M54.5 Low back pain (principal); M54.6 Pain in thoracic spine; M54.2 Cervicalgia
CPT/HCPCS: 72146; 72148; 76376

== ENCOUNTER → 2019-03-20 07:52 | Outpatient (CLI) | payer BC, SELFPAY ==
--- NOTE | 2019-03-20 07:55 | MR_ITS ---
PROCEDURE: MR CERVICAL SPINE WO CON CLINICAL INDICATION: NECK, BACK PAIN Neck pain with bilateral arm numbness and tingling COMPARISON: No exams were available for comparison TECHNIQUE: Standard multiplanar multiecho sequences are performed without contrast. 3-D MIP and myelographic images are also rendered and reviewed FINDINGS: There is normal alignment. Cranial cervical junction has an unremarkable appearance. There is slight increased T2 signal within the nigel posteriorly and superiorly. This is of questionable clinical significance. No disc herniation canal stenosis or foraminal stenosis is apparent. No significant degenerative change. There is minimal bulging disc at C5-C6 without impingement. IMPRESSION: Minimal bulging disc C5-C6 otherwise negative MRI of the cervical spine. No disc herniation or canal stenosis. Dictated by: Gabe Solorzano MD 03/21/2019 00:57 Electronically signed by Gabe Solorzano MD in [place] 03/21/2019 07:33
== END ==
LOC: RAD 07:52
PROVIDERS: PCP Physician Assistant; Visit Provider Clinical Nurse Specialist Family Health
DX: M54.2 Cervicalgia (principal); M54.6 Pain in thoracic spine; M54.5 Low back pain
CPT/HCPCS: 72141; 76376

== ENCOUNTER → 2019-03-31 09:07 | Outpatient (POV) | payer BC, SELFPAY ==
--- NOTE | 2019-03-31 09:59 | HMH.PAINSOAP ---
[facility] Pain Management SOAP Note Subjective:: Patient is a very pleasant 49-year-old white female who presents today for follow-up after a cervical, thoracic, lumbar MRI. Cervical and thoracic MRIs were quite negative however the lumbar spine does show some degeneration in the lower 2 levels. She has postlaminectomy syndrome. We discussed epidural injections she is interested in moving forward with this. ROS General: no recent weight change, no fever, no sleep disturbances Respiratory: no cough, no shortness of air, no recurring pulmonary infections Cardiovascular/Peripheral Vascular: No chest pain, No palpitations, no edema, no shortness of breath. Gastrointestinal: no new onset incontinence, normal bowel movements reported Genitourinary: no new onset incontinence Musculoskeletal: Back pain, leg pain Psychiatric: normal mood/ affect Neurological: [denies new onset weakness in extremities], [denies new onset balance issues] Objective:: Physical Exam General: Alert and oriented x3, no acute distress, pleasant and cooperative, [on room air] Lungs: Resps E/U, Symmetrical chest expansion, Eyes: PERRL Musculoskeletal: Flexion and extension of lumbar spine somewhat guarded secondary to pain, deep tendon reflexes normal, strength in upper and lower extremities [5/5], [abnormal gait noted] Neurological: speech clear, cage fighter equal, no gross 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 I believe given her symptomology that this would be beneficial. Patient's been instructed to call the office if she has any issues prior to her next appointment. She is not on any anticoagulation therapy and is continuing a home stretching program. Dr. Payan has reviewed this note and agrees with this plan of care. This note was dictated using voice recognition software and may contain errors or omissions [facility] History I have reviewed the patient's past medical history: Yes 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: Reports:: Anxiety, Asthma, Congestive Heart Failure, Chronic Obstructive Pulmonary Disease (COPD), Depression, Hyperlipidemia, Hypertension, Lung Disease Denies:: Cancer, Diabetes Mellitus Type 1, Diabetes Mellitus Type 2, Home Oxygen, Internal Pacemaker, MRSA, Seizures *Have you ever received a pneumonia vaccine?: Yes *Have you received a flu vaccine this season?: Yes Other 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: Reports: Other Other Surgeries: Yes: Cardiac Catheterization, Cholecystectomy, Colonoscopy, EGD, Hysterectomy-Total, Hysterectomy-Partial, Plastic Surgery, Sinus Surgery, Other (spinal fusion,plastic surgery on chin). No: Pacemaker Amputation: No Fractures: No - *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 Smoking Status: Former smoker Tobacco Type: cigarettes # Packs/Day (cigarettes): 1 Alcohol Intake: never Alcohol Intake Frequency:: a few times a month Substance Use Type: denies use *Occupational Status:: employed Housing: house Household Members: other *Travel in the last 8 weeks: None - Psychiatric History Pschychiatric History:: Reports:: Anxiety, Depression Family Hx:: Cancer, Coronary Artery Disease, Hypertension
--- NOTE | 2019-03-31 10:02 | P.CONS_ITS ---
[facility] Pain Management SOAP Note Subjective:: Patient is a very pleasant 49-year-old white female who presents today for follow-up after a cervical, thoracic, lumbar MRI. Cervical and thoracic MRIs were quite negative however the lumbar spine does show some degeneration in the lower 2 levels. She has postlaminectomy syndrome. We discussed epidural injections she is interested in moving forward with this. ROS General: no recent weight change, no fever, no sleep disturbances Respiratory: no cough, no shortness of air, no recurring pulmonary infections Cardiovascular/Peripheral Vascular: No chest pain, No palpitations, no edema, no shortness of breath. Gastrointestinal: no new onset incontinence, normal bowel movements reported Genitourinary: no new onset incontinence Musculoskeletal: Back pain, leg pain Psychiatric: normal mood/ affect Neurological: [denies new onset weakness in extremities], [denies new onset balance issues] Objective:: Physical Exam General: Alert and oriented x3, no acute distress, pleasant and cooperative, [on room air] Lungs: Resps E/U, Symmetrical chest expansion, Eyes: PERRL Musculoskeletal: Flexion and extension of lumbar spine somewhat guarded secondary to pain, deep tendon reflexes normal, strength in upper and lower extremities [5/5], [abnormal gait noted] Neurological: 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 I believe given her symptomology that this would be beneficial. Patient's been instructed to call the office if she has any issues prior to her next appointment. She is not on any anticoagulation therapy and is continuing a home stretching program. Dr. Payan has reviewed this note and agrees with this plan of care. This note was dictated using voice recognition software and may contain errors or omissions [facility] History I have reviewed the patient's past medical history: Yes 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: Reports:: Anxiety, Asthma, Congestive Heart Failure, Chronic Obstructive Pulmonary Disease (COPD), Depression, Hyperlipidemia, Hypertension, Lung Disease Denies:: Cancer, Diabetes Mellitus Type 1, Diabetes Mellitus Type 2, Home Oxygen, Internal Pacemaker, MRSA, Seizures *Have you ever received a pneumonia vaccine?: Yes *Have you received a flu vaccine this season?: Yes Other 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: Reports: Other Other Surgeries: Yes: Cardiac Catheterization, Cholecystectomy, Colonoscopy, EGD, Hysterectomy-Total, Hysterectomy-Partial, Plastic Surgery, Sinus Surgery, Other (spinal fusion,plastic surgery on chin). No: Pacemaker Amputation: No Fractures: No - *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 Smoking Status: Former smoker Tobacco Type: cigarettes # Packs/Day (cigarettes): 1 Alcohol Intake: never Alcohol Intake Frequency:: a few times a month Substance Use Type: denies use *Occupational Status:: employed Housing: house Household Members: other *Travel in the last 8 weeks: None - Psychiatric History Pschychiatric History:: Reports:: Anxiety, Depression Family Hx:: Cancer, Coronary Artery Disease, Hypertension
[2019-03-31 10:06] VITALS: BP 127/63; PULSE 99; RESP 18; O2SAT 98; BMI 25.0
== END ==
PROVIDERS: PCP Physician Assistant; Visit Provider Clinical Nurse Specialist Family Health
DX: M51.16 Intervertebral disc disorders with radiculopathy, lumbar region (principal); M96.1 Postlaminectomy syndrome, not elsewhere classified
CPT/HCPCS: 99212

== ENCOUNTER 2019-04-01 09:00 | Outpatient (RCR) | payer BC, SELFPAY ==
--- NOTE | 2019-03-13 12:14 | HMH.PTOPEV ---
PT Outpatient Evaluation Rehab PT Outpatient Evaluation Start: 03/13/19 10:50 Freq: Status: Active Protocol: Document 03/13/19 10:51 MARLINFARHAN (Rec: 03/13/19 11:38 SARAMEAGANFARHAN [id number]) Electronically Signed By Hiren Meek, PT 03/13/19 10:51 Outpatient Therapy Subjective History Subjective History Pt is a 49 year old female presenting to outpatient PT with reports of chronic low back and thoracic spine pain of insidious onset starting approximately 15 years ago that has progressively gotten worse. No recent diagnostics to report. She is currently scheduled for a lumbar spine MRI next week per patient report. Pt reprorts hx of L5/ S1 fusion. Comorbidites include lumbar fusion, esophageal dysphagia, hx of H. Pylori and recent heart catheterization. Chief Complaint Pain,Spasms Symptom Type Sharp Symptoms Relieved By Rest/Positioning Prior Functional Limitations None Current Functional Limitations Lifting,Housework,Standing, Squatting,Recreation Activity, Walking,Bending/Stooping Symptom Description Constant but Variable Level of pain today (0-10) 6 Pain scale - at its best (0-10) 3 Pain scale - at its worst (0-10) 8 Lumbopelvic Eval Posture Thoracic Spine Posture Standing Position Increased Kyphosis Lumbar Spine Posture Standing Position Decreased Lordosis Assistive device Assistive Devices None / NA Palapation tenderness bilateral thoracic spinal tenderness Yes: T3-9 3/4 lumbar spinal tenderness Yes: L5/S1 3/4 buttock tenderness Yes: 3/4 Accessory Movement T10 bilateral T11 bilateral T12 bilateral L2 bilateral L3 bilateral L4 bilateral L5 bilateral S1 bilateral Range of Motion Lumbar Spine Active Flexion Range of 45 Motion (degrees) Lumbar Spine Active Extension Range of 15 Motion (degrees) Left Lumbar Spine Lateral Flexion Active 20 Range of Motion (degrees) Right Lumbar Spine Lateral Flexion 22 Active Range of Motion (degrees) Lumbar Spine ROM Limitations Soft Tissue Tightness,Bony
== END 2019-04-01 09:05 | disposition home or self-care (01) ==
LOC: PT 09:00
PROVIDERS: Visit Provider Physician Assistant
DX: M54.9 Dorsalgia, unspecified (principal); R07.9 Chest pain, unspecified
CPT/HCPCS: 97010; 97014; 97110; 97140; 97163; G0283

== ENCOUNTER → 2019-04-06 07:48 | Outpatient (CLI) | payer BC, SELFPAY ==
--- NOTE | 2019-04-06 07:49 | MR_ITS ---
PROCEDURE: MR KNEE RT WO CON CLINICAL INDICATION: Right knee pain Pain and swelling, medial and lateral pain COMPARISON: [id number] XR knee RT 4V from 02/06/2018 TECHNIQUE: Routine multiplanar multi echo sequences are performed without gadolinium enhancement. FINDINGS: The cruciate ligaments, collateral ligaments, patellar tendon, and quadriceps tendon have an unremarkable appearance. No meniscal tear apparent. There is a medium-sized knee joint effusion. Patellar cartilage is well preserved. No obvious fracture or dislocation. Minimal amount of bone marrow edema is present in the proximal tibia medially etiology indeterminate. IMPRESSION: 1. No evidence of internal derangement. 2. Medium-sized knee joint effusion with a small amount of bone marrow edema of the medial proximal tibia nonspecific. Dictated by: Gabe Solorzano MD 04/07/2019 15:14 Electronically signed by Gabe Solorzano MD in [place] 04/07/2019 15:14
== END ==
PROVIDERS: PCP Physician Assistant; Visit Provider Physician Assistant
DX: M25.561 Pain in right knee (principal)
CPT/HCPCS: 73721

== ENCOUNTER → 2019-04-30 10:04 | Outpatient (CLI) | payer BC, SELFPAY ==
--- NOTE | 2019-04-30 10:07 | CA_ITS ---
APPROVED REPORT Right Lower Extremity Venous Study for DVT. 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: CT Indications Lower Extremity Pain: Right right lower extremity pain Vein Imaging CFV (R): compressive, spontaneous, phasic, augmentation SFJ (R): compressive, spontaneous, phasic, augmentation FEM (R): compressive, spontaneous, phasic, augmentation POP (R): compressive, spontaneous, phasic, augmentation DFV (R): compressive, spontaneous, phasic, augmentation PTV (R): compressive, spontaneous, phasic, augmentation GSV (R): compressive, spontaneous, phasic, augmentation SSV (R): compressive, spontaneous, phasic, augmentation Peroneals (R):compressive, spontaneous, phasic, augmentation GAS (R): compressive, spontaneous, phasic, augmentation Findings RLE NEGATIVE DVT/SVT Vessels compressible Conclusion No evidence of DVT or superficial thrombophlebitis in the veins scanned of the right lower extremity. Electronically signed by : Gabe Solorzano MD 04/30/2019 14:45:40
== END ==
LOC: RT 10:07
PROVIDERS: PCP Physician Assistant; Visit Provider Physician Assistant
DX: M25.561 Pain in right knee (principal)
CPT/HCPCS: 93971

== ENCOUNTER → 2019-05-04 13:05 | Outpatient (CLI) | payer BC, SELFPAY ==
--- NOTE | 2019-05-04 13:07 | XR_ITS ---
PROCEDURE: XR KNEE RT 4V CLINICAL INDICATION: knee pain Right knee pain and swelling COMPARISON: [id number] XR knee RT 4V from 02/06/2018 FINDINGS: No fracture or dislocation. No lytic or blastic change. There is normal mineralization. There are mild osteoarthritic changes of the medial compartment. Other findings:None. IMPRESSION: Mild osteoarthritis which has developed since 02/06/2018 Dictated by: Gabe Solorzano MD 05/04/2019 13:32 Electronically signed by Gabe Solorzano MD in [place] 05/04/2019 13:32
== END ==
LOC: RAD 13:06
PROVIDERS: PCP Physician Assistant; Visit Provider Orthopaedic Surgery
DX: M25.561 Pain in right knee (principal)
CPT/HCPCS: 73564

== ENCOUNTER → 2019-05-18 13:22 | Outpatient (POV) | payer BC, SELFPAY ==
[2019-05-18 13:46] VITALS: BP 138/75; PULSE 87; RESP 18; O2SAT 99; BMI 25.9
--- NOTE | 2019-05-18 16:08 | HMH.PAINSOAP ---
[facility] Pain Management SOAP Note Subjective:: Patient is a pleasant 49-year-old white female who presents today for follow-up after her lumbar epidural steroid injection. Patient states that she did not have that much relief with her injection. She rates the pain an 8 out of 10. Patient has difficulty with her low back and bilateral legs. She is also noticed that she has begun to have swelling in her lower extremities. Patient has been ruled out for cardiac issues. Patient and I discussed a neurostimulator and she is interested in pursuing this. I do believe that would benefit her given her symptomology. Patient and I had a long discussion in regards to neuro stimulation risks and benefits. She like to proceed. Patient understands to have a psychological evaluation. ROS General: no recent weight change, no fever, no sleep disturbances Respiratory: no cough, no shortness of air, no recurring pulmonary infections Cardiovascular/Peripheral Vascular: No chest pain, No palpitations, no edema, no shortness of breath. Gastrointestinal: no new onset incontinence, normal bowel movements reported Genitourinary: no new onset incontinence Musculoskeletal: Back pain, leg pain Psychiatric: normal mood/ affect Neurological: [denies new onset weakness in extremities], [denies new onset balance issues] Objective:: Physical Exam General: Alert and oriented x3, no acute distress, pleasant and cooperative, [on room air] Lungs: Resps E/U, Symmetrical chest expansion, Eyes: PERRL Musculoskeletal: Flexion and extension of lumbar spine somewhat guarded secondary to pain, deep tendon reflexes normal, strength in upper and lower extremities [5/5], [abnormal gait noted] Neurological: speech clear, 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 We will plan on using a [employer] system due to her age. I do believe it would be beneficial given her the potential for MRIs in the future. Patient questions were answered. We will send her for psychological evaluation. I will follow-up with her after this reassess her symptoms at that time she is been instructed to call the office if she has any issues prior to her next appointment. She is not on any anticoagulation therapy. She is tried and failed physical therapy, anti-inflammatories, medications, SI joint injections, epidural injections. Dr. Payan has reviewed this note and agrees with this plan of care. This note was dictated using voice recognition software and may contain errors or omissions [facility] History 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: Reports:: Anxiety, Asthma, Congestive Heart Failure, Chronic Obstructive Pulmonary Disease (COPD), Depression, Hyperlipidemia, Hypertension, Lung Disease Denies:: Cancer, Diabetes Mellitus Type 1, Diabetes Mellitus Type 2, Home Oxygen, Internal Pacemaker, MRSA, Seizures *Have you ever received a pneumonia vaccine?: Yes *Have you received a flu vaccine this season?: Yes Other 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: Reports: Other Laterality Cases: Bilateral: Tonsillectomy Other Surgeries: Yes: Cardiac Catheterization, Cholecystectomy, Colonoscopy, EGD, Hysterectomy-Total, Hysterectomy-Partial, Plastic Surgery, Sinus Surgery, Other. No: Pacemaker Amputation: No Fractures: No - *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 Smoking Status: Former smoker Tobacco Type: cigarettes # Packs/Day (cigarettes): 1 Alcohol Intake: never Alcohol Intake Frequency:: a few times a month Substance Use Type: denies use *Occupational Status:: other Housing: house Household Members: spouse, other *Travel in the last 8 weeks: None - Psychiatric History Pschychiatric History:: Reports:: Anxiety, Depression Family Hx:: Cancer, Coronary Artery Disease, Hypertension
== END ==
PROVIDERS: PCP Physician Assistant; Visit Provider Clinical Nurse Specialist Family Health
DX: M51.16 Intervertebral disc disorders with radiculopathy, lumbar region (principal); M96.1 Postlaminectomy syndrome, not elsewhere classified; M46.1 Sacroiliitis, not elsewhere classified
CPT/HCPCS: 99212

== ENCOUNTER → 2019-06-10 09:41 | Outpatient (CLI) | payer OTHER, BC, SELFPAY ==
--- NOTE | 2019-06-10 09:47 | XR_ITS ---
PROCEDURE: XR FINGER LT MIN 2V CLINICAL INDICATION: Crush injury left pointer finger COMPARISON: No exams were available for comparison FINDINGS: There is a transverse type fracture through the distal phalangeal tuft with no significant displacement or angulation. Mild osteoarthritis is seen at the proximal interphalangeal joint. Other findings:None. IMPRESSION: Transverse fracture through the distal phalangeal tuft. Dictated by: Cecilio Amaya 06/10/2019 10:02 Electronically signed by Cecilio Amaya in [place] 06/10/2019 10:02
== END ==
PROVIDERS: PCP Physician Assistant; Visit Provider Physician Assistant
DX: S69.92XA Unspecified injury of left wrist, hand and finger(s), initial encounter (principal)
CPT/HCPCS: 73140

== ENCOUNTER → 2019-06-23 13:34 | Outpatient (CLI) | payer BC, SELFPAY ==
[2019-06-23 14:10] LABS: Basophils # 0.1 K/mm3 (0-0.2); Basophils % 0.5 % (0.1-2.0); Eosinophils # 0.1 K/mm3 (0.0-0.4); Eosinophils % 0.9 % (0.1-12.0); Hematocrit 43.4 % (37.0-47.0); Hemoglobin 14.7 g/dL (12.2-16.2); Lymphocytes # 3.6 K/mm3 (0.7-4.5); Lymphocytes % 33.2 % (10-50); Mean Corpuscular Hemoglobin 31.3 pg (27.0-31.2); Mean Corpuscular Volume 91.9 fl (81-99); Mean Platelet Volume 9.5 fl (7.4-10.4); Monocytes # 0.6 K/mm3 (0.1-1.0); Monocytes % 5.6 % (1.7-9.3); Neutrophils # 6.5 K/mm3 (1.8-7.8); Neutrophils % 59.7 % (37.0-80.0); Platelet Count 260 K/mm3 (142-424); Red Blood Count 4.72 M/mm3 (4.20-5.40); Red Cell Distribution Width 12.6 % (11.5-17.5); White Blood Count 10.9 K/mm3 (4.8-10.8)
[2019-06-23 14:15] LABS: Chloride 104 mmol/L (98-107); Sodium 143 mmol/L (136-145)
[2019-06-23 14:18] LABS: Alanine Aminotransferase 32 U/L (12-78); Albumin/Globulin Ratio 1.8 (1.1-1.8); Alkaline Phosphatase 89 U/L (38-126); Aspartate Amino Transferase 29 U/L (14-36); Bilirubin,Total 0.2 mg/dl (0.2-1.3); Blood Urea Nitrogen 22 mg/dl (7-17); Carbon Dioxide 24 mmol/L (22.0-30.0); Estimated Glomerular Filt Rate 66 ml/min (>60); GFR (African American) 80 ML/MIN (>60); Globulin 2.8 g/dL (1.3-3.2); Total Protein,Serum 7.8 g/dl (6.3-8.2)
[2019-06-23 14:19] LABS: Calcium 9.9 mg/dl (8.4-10.2); Glucose 85 mg/dl (74-100)
[2019-06-23 14:34] LABS: T4 (Thyroxine) 13.2 ug/dl (5.53-11.0)
[2019-06-23 14:47] LABS: Thyroid Stimulating Hormone 0.89 uIU/mL (0.465-4.68)
[2019-06-24 16:14] LABS: LH 37.6 mIU/mL (.); Vitamin D 25 Hydroxy 22.8 ng/mL (30.0-100.0)
[2019-06-24 16:15] LABS: FSH 83.9 mIU/mL (.)
[2019-06-27 20:39] LABS: Estrogen 56 pg/mL (.)
== END ==
LOC: LAB.DROPOF 13:34
PROVIDERS: Visit Provider Physician Assistant
DX: R53.83 Other fatigue (principal); E55.9 Vitamin D deficiency, unspecified
CPT/HCPCS: 80053; 82652; 82672; 83001; 83002; 84436; 84443; 85025

== ENCOUNTER → 2019-07-06 08:53 | Outpatient (CLI) | payer OTHER, BC, SELFPAY ==
--- NOTE | 2019-07-06 09:06 | XR_ITS ---
PROCEDURE: XR HAND LT MIN 3V CLINICAL INDICATION: index finger fracture Posttraumatic pain COMPARISON: No exams were available for comparison FINDINGS: There is a minimally distracted fracture involving the distal aspect of the distal phalanx of the 2nd finger. The fracture is 4 mm proximal to the tip of the distal phalanx and distracted by 1-2 mm. There is good alignment. A splint is in place anteriorly IMPRESSION: Mildly distracted transverse fracture involves the tip of the distal phalanx of the 2nd finger Dictated by: Gabe Solorzano MD 07/06/2019 09:55 Electronically signed by Gabe Solorzano MD in [place] 07/06/2019 09:55
== END ==
PROVIDERS: PCP Physician Assistant; Visit Provider Orthopaedic Surgery
DX: S62.609A Fracture of unspecified phalanx of unspecified finger, initial encounter for closed fracture (principal)
CPT/HCPCS: 73130

== ENCOUNTER → 2019-08-03 09:56 | Outpatient (CLI) | payer OTHER, BC, SELFPAY ==
--- NOTE | 2019-08-03 10:03 | XR_ITS ---
PROCEDURE: XR FINGER LT MIN 2V CLINICAL INDICATION: left index finger fu/ xrays out of splint Follow-up fracture COMPARISON: XR FINGER LT MIN 2V from 06/10/2019 FINDINGS: Nondisplaced transverse fracture once again noted at tip of the distal phalanx of the index finger without significant callus formation. Good alignment. Mild osteoarthritic changes of the PIP joint Other findings:None. IMPRESSION: No change nondisplaced fracture distal phalanx with good alignment Dictated by: Gabe Solorzano MD 08/03/2019 15:00 Electronically signed by Gabe Solorzano MD in [place] 08/03/2019 15:00
== END ==
PROVIDERS: PCP Physician Assistant; Visit Provider Orthopaedic Surgery
DX: S62.639A Displaced fracture of distal phalanx of unspecified finger, initial encounter for closed fracture (principal)
CPT/HCPCS: 73140

== ENCOUNTER → 2019-08-31 08:53 | Outpatient (CLI) | payer OTHER, SELFPAY ==
--- NOTE | 2019-08-31 09:10 | XR_ITS ---
PROCEDURE: XR FINGER LT MIN 2V CLINICAL INDICATION: left index finger fx Follow-up fracture 2nd digit COMPARISON: XR FINGER LT MIN 2V from 06/10/2019 XR FINGER LT MIN 2V from 08/03/2019 FINDINGS: Nondisplaced transverse fracture involves the distal aspect of the distal phalanx of the 2nd finger. Fracture line is still visible not significantly changed The joint spaces are well-preserved. No significant degenerative/arthritic changes. No erosive changes evident. Other findings:None. IMPRESSION: No change nondisplaced fracture distal phalanx 2nd digit Dictated by: Gabe Solorzano MD 08/31/2019 12:06 Electronically signed by Gabe Solorzano MD in [place] 08/31/2019 12:06
== END ==
PROVIDERS: PCP Physician Assistant; Visit Provider Orthopaedic Surgery
DX: S62.639A Displaced fracture of distal phalanx of unspecified finger, initial encounter for closed fracture (principal)
CPT/HCPCS: 73140

== ENCOUNTER → 2019-10-05 09:45 | Outpatient (CLI) | payer OTHER, BC, SELFPAY ==
--- NOTE | 2019-10-05 09:52 | XR_ITS ---
PROCEDURE: XR HAND LT MIN 3V CLINICAL INDICATION: left index finger fx Follow-up fracture COMPARISON: XR HAND LT MIN 3V from 07/06/2019 FINDINGS: Nondisplaced transverse fracture involves the distal aspect the distal phalanx of the index finger. Fracture line is somewhat less apparent compared to the previous exam. The joint spaces are well-preserved. No significant degenerative/arthritic changes. No erosive changes evident. Other findings:None. IMPRESSION: Healing nondisplaced fracture involves the distal phalanx of the index finger Dictated by: Gabe Solorzano MD 10/05/2019 16:40 Electronically signed by Gabe Solorzano MD in [place] 10/05/2019 16:40
== END ==
PROVIDERS: PCP Physician Assistant; Visit Provider Orthopaedic Surgery
DX: S62.639A Displaced fracture of distal phalanx of unspecified finger, initial encounter for closed fracture (principal)
CPT/HCPCS: 73130

== ENCOUNTER → 2019-10-15 13:18 | Outpatient (CLI) | payer BC, SELFPAY | PROVIDERS: Visit Provider Physician Assistant | DX: N39.0 Urinary tract infection, site not specified (principal) | CPT/HCPCS: 87086 ==

== ENCOUNTER → 2019-11-09 12:15 | Outpatient (CLI) | payer BC, SELFPAY ==
[2019-11-10 15:23] LABS: Covid-19 Nasal PCR Sendout Lex NOT DETECTED
== END ==
PROVIDERS: PCP Physician Assistant; Visit Provider Physician Assistant
DX: Z03.818 Encounter for observation for suspected exposure to other biological agents ruled out (principal)
CPT/HCPCS: 87275; 87276; U0004

== ENCOUNTER → 2019-12-03 11:19 | Outpatient (CLI) | payer BC, SELFPAY ==
[2019-12-03 12:43] LABS: Coronavirus 19 IgG Antibody Negative (Negative); Coronavirus 19 IgM Antibody Negative (Negative)
[2019-12-03 14:48] LABS: Basophils # 0.1 K/mm3 (0-0.2); Basophils % 0.6 % (0.1-2.0); Eosinophils # 0.1 K/mm3 (0.0-0.4); Hematocrit 40.9 % (37.0-47.0); Hemoglobin 14.3 g/dL (12.2-16.2); Lymphocytes # 3.5 K/mm3 (0.7-4.5); Lymphocytes % 28.6 % (10-50); Mean Corpuscular HGB Conc 35.1 g/dL (31.8-35.4); Mean Corpuscular Hemoglobin 32.9 pg (27.0-31.2); Mean Corpuscular Volume 93.9 fl (81-99); Mean Platelet Volume 9.1 fl (7.4-10.4); Monocytes # 0.6 K/mm3 (0.1-1.0); Neutrophils # 7.9 K/mm3 (1.8-7.8); Neutrophils % 64.9 % (37.0-80.0); Platelet Count 209 K/mm3 (142-424); Red Blood Count 4.35 M/mm3 (4.20-5.40); White Blood Count 12.1 K/mm3 (4.8-10.8)
[2019-12-03 17:53] LABS: Chloride 106 mmol/L (98-107); Potassium 4.6 mmoL/L (3.5-5.1); Sodium 142 mmol/L (136-145)
[2019-12-03 17:56] LABS: Anion Gap 14.6 mEq/L (5-15); Blood Urea Nitrogen 18 mg/dl (7-17); Calcium 9.4 mg/dl (8.4-10.2); Carbon Dioxide 26 mmol/L (22.0-30.0); Estimated Glomerular Filt Rate 66 ml/min (>60); GFR (African American) 80 ML/MIN (>60); Glucose 109 mg/dl (74-100)
== END ==
PROVIDERS: Visit Provider Urology
DX: R31.9 Hematuria, unspecified (principal)
CPT/HCPCS: 36415; 80048; 85025; 86328

== ENCOUNTER 2019-12-04 09:42 | Day surgery (SDC) | payer BC, SELFPAY ==
[2019-12-04 11:10] VITALS: BP 125/83; PULSE 75; RESP 16; TEMP 36.6; O2SAT 95; BMI 26.9
--- NOTE | 2019-12-04 12:09 | P.PN_ITS ---
[facility] Anesthesia Checklist - Patient Identification Patient Identification: Arm Band, Verbal (Name & ) - Structural Data Admitted From: Home Planned Operative Procedure/s: Cystoscopy with urethral dilation Consent for Planned Operative Procedure(s) Verified: Yes Verified Documents: Surgical Consent, History and Physical - NPO Status Verified Time NPO: 23:00 - Chart Verification Results Verified: CBC, BMP - Additional verifications Anesthesia Reactions: No Hx Blood Transfusions: No Blood Transfusion Reaction: No - Airway Assessment C-Spine Mobility Assessed: Yes TMJ Mobility Assessed: Yes Dentition: Good Dentition (Missing tooth) - Neurological Assessment Level of Consciousness: Awake, Alert, Appropriate, Follows Commands Hx Seizures: No Numbness or tingling in extremities: No - Anesthesia Plan Anesthesia Risk discussed: Yes Anesthesia Plan: Verified ASA Class: III Anesthesia Type: General [facility] History I have reviewed the patient's past medical history: Yes 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: Reports:: Anxiety, Asthma, Congestive Heart Failure, Chronic Obstructive Pulmonary Disease (COPD), Depression, Hyperlipidemia, Hypertension, Lung Disease, Urinary Tract Infection Denies:: Cancer, Diabetes Mellitus Type 1, Diabetes Mellitus Type 2, Home Oxygen, Internal Pacemaker, MRSA, Seizures *Have you ever received a pneumonia vaccine?: No *Have you received a flu vaccine this season?: Yes Other 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: Reports: Other. Denies: Blood Transfusion Reaction Anesthesia experience/problems:: No prior complications Laterality Cases: Bilateral: Tonsillectomy Other Surgeries: Yes: Cardiac Catheterization, Cholecystectomy, Colonoscopy, EGD, Hysterectomy-Total, Hysterectomy-Partial, Plastic Surgery, Sinus Surgery, Other. No: Pacemaker Amputation: No Fractures: No - *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 Last grade of school completed: Advanced degree Smoking Status: Never smoker Tobacco Type: cigarettes # Packs/Day (cigarettes): 1 Alcohol Intake: current Alcohol Intake Frequency:: a few times a month Substance Use Type: denies use *Occupational Status:: employed Housing: house Household Members: spouse, children *Travel in the last 8 weeks: Inside the [place] - Psychiatric History Pschychiatric History:: Reports:: Anxiety, Depression Family Hx:: Unable to obtain
[2019-12-04 12:33] VITALS: BP 118/76; PULSE 72; RESP 18; TEMP 36.6; O2SAT 92
[2019-12-04 12:48] VITALS: BP 102/77; PULSE 82; RESP 18; TEMP 36.6; O2SAT 93
[2019-12-04 13:10] VITALS: BP 145/85; PULSE 73; RESP 18; TEMP 36.6; O2SAT 93
--- NOTE | 2019-12-04 16:34 | P.OP_ITS ---
Date of procedure: 12/04/19 Pre-op Diagnosis:: History of urethral stenosis/microhematuria Post-op Diagnosis:: Recurrent urethral stenosis/microhematuria Procedure performed:: Cystoscopy with urethral dilation Surgeon:: Saul Esparza MD APPLICATION SECURITY CONSULTANT:: Clark Taylor Anesthesia: MAC Estimated blood loss (mL): 0 Clinical Note:: 49-year-old white female with a history of urethral stenosis and recurrent lower urinary tract symptoms presents for urologic evaluation. Operative findings:: The urethra was mildly stenotic. After bladder distention there was some mild petechial hemorrhages in the bladder. No other mucosal abnormalities were noted in the bladder. Operative note:: Patient taken to the operating room after informed consent was obtained. Placed on the operating table in supine position and monitored anesthesia care administered. She was then placed into the dorsolithotomy position and prepped and draped in the standard surgical fashion. Vaginal examination revealed normal vaginal introitus. Urethra meatus in the normal anatomic position. No evidence of cystocele or rectocele. The urethra was dilated with a 22, 24, 26 and 28 Panamanian female sounds. There was some slight resistance to passage of the 22 [place]ian and more resistance to passage of the 28 Pan[place]ian sound. After dilation the 22 Edin passed into the urethra and the bladder examined in a systematic fashion. There is no evidence of mucosal abnormalities, stones, trabeculation or cellule formation. The ureteral orifices in their normal anatomic position. During the course of the cystoscopy the bladder was allowed to fill under gravity. After emptying the bladder looking back and there were some mild petechial hemorrhages along the base of the bladder and possible interstitial cystitis is a concern. Bladder then drained and Urojet placed into the urethra. She tolerated procedure and there are no complications. Condition: stable Disposition: same day Specimens:: None Complications:: None
== END 2019-12-04 13:10 | disposition home or self-care (01) ==
LOC: OR 09:46
PROVIDERS: PCP Physician Assistant; Visit Provider Urology
PROC: 0TJB8ZZ Inspection of Bladder, Via Natural or Artificial Opening Endoscopic (ICD-10-PCS; CPT 52000; principal; 2019-12-04 11:15)
DX: N35.92 Unspecified urethral stricture, female (principal); R31.29 Other microscopic hematuria; J44.9 Chronic obstructive pulmonary disease, unspecified; I50.9 Heart failure, unspecified; F41.9 Anxiety disorder, unspecified; F32.9 Major depressive disorder, single episode, unspecified; E78.5 Hyperlipidemia, unspecified; I11.0 Hypertensive heart disease with heart failure; Z87.440 Personal history of urinary (tract) infections; Z90.49 Acquired absence of other specified parts of digestive tract; Z88.1 Allergy status to other antibiotic agents; Z88.8 Allergy status to other drugs, medicaments and biological substances
CPT/HCPCS: 52281

== ENCOUNTER → 2019-12-31 07:39 | Outpatient (CLI) | payer BC, SELFPAY ==
--- NOTE | 2019-12-31 07:42 | MR_ITS ---
PROCEDURE: MR KNEE RT WO CON CLINICAL INDICATION: right knee pain Pt c/o swelling and pain anterior rt knee. Pt. states rt knee pops and she has pain when bending. prior mri rt knee 04/06/19 COMPARISON: MR MR KNEE RT WO CON from 04/06/2019 CR XR KNEE RT 4V from 05/04/2019 TECHNIQUE: Routine multiplanar multi echo sequences are performed without and with gadolinium enhancement. FINDINGS: The cruciate ligaments are intact. The collateral ligaments are intact. The patellar tendon and quadriceps tendon have an unremarkable appearance. No meniscal tear. There is a small knee joint effusion which has decreased compared to the previous exam. There are mild osteoarthritic changes of the knee including all 3 compartments. The patellar cartilage is preserved. Previously noted small amount of bone marrow edema involving the proximal tibia medially is less apparent. IMPRESSION: 1. No internal derangement apparent. 2. Mild osteoarthritic changes with small knee joint effusion. Dictated by: Gabe Solorzano MD 01/01/2020 10:29 Gabe Solorzano MD in [place] 01/01/2020 10:29
== END ==
LOC: RAD 07:39
PROVIDERS: PCP Physician Assistant; Visit Provider Emergency Medicine
DX: M25.561 Pain in right knee (principal)
CPT/HCPCS: 73721

== ENCOUNTER 2020-01-23 17:45 | Emergency (ER) | payer BC, SELFPAY ==
[2020-01-23 17:52] VITALS: BP 129/96; PULSE 106; RESP 20; TEMP 36.7; O2SAT 98; BMI 26.6
--- NOTE | 2020-01-23 18:03 | HMH.EDUTC ---
[facility] Disposition Clinical Impression: Bronchitis Sinusitis Qualifiers: Sinusitis location: unspecified location Chronicity: unspecified Qualified Code(s): J32.9 - Chronic sinusitis, unspecified Disposition: Home, Self-Care Condition on Discharge: Good Instructions: Sore Throat, Sinusitis, DI for Sinusitis, DI for Cough -- Adult, Levofloxacin, Preventing the Spread of Coronavirus Discharge Instructions Additional Instructions: *Monitor Temp, Over the counter Motrin or Tylenol as directed/as needed Tylenol every 4 hours and Motrin every 6 hours (as long as your family doctor has told you that you can take it) for fever or pain. and straight to ER if unable to lower temp less than 101.0 after medication given *Warm salt water gargles may help to soothe the throat *Throat Lozenges *Warm fluids like tea with honey may help to soothe the throat *Sleep elevated *Humidifier/Vaporizer Your throat swab was sent for culture. Those results are typically sent to your primary care. Be sure to follow up in 2-3 days with your family doctor/primary care physician if no improvement so they can review those result and treat if necessary. If you don?t have a primary care doctor, I recommend you get one but in the mean time, you will have to return to a walk in clinic Follow up IMMEDIATELY for new or worsening symptoms or no Noticeable improvement over the next 48-72 hours. 911 for difficulty breathing or swallowing You was tested for today for COVID19 your test result should be back later this evening, you may call back later this evening to see if your test results are back and the result You was given a handout with instructions for Self Quarantine and Self isolation for while you wait on test results and what to do if they are positive Prescriptions: levoFLOXacin [Levaquin 500mg tab] 500 mg PO DAILY 5 Days #5 tab Transmission Status: Pending to [id number] Referrals: Pia Rooney PA [Primary Care Provider] - As needed Forms: Work/School Release Time of Disposition: 18:25 Medical Decision Making - Lorenzo Inquiry Pt receiving controlled substance: No Lorenzo was queried for this patient: No Vital Signs: 01/23/20 17:52 Temperature 98.0 F Temperature Source Oral Pulse Rate [Radial] 106 H Respiratory Rate 20 Blood Pressure [Right Arm] 129/96 H Blood Pressure Mean [Right Arm] 107 Blood Pressure Source [Right Arm] Automatic Cuff Blood Pressure Position [Right Arm] Sitting 02 Sat by Pulse Oximetry 98 Oxygen Delivery Method Room Air - Lab Data Lab results reviewed: Yes: I reviewed the patient's lab results. [facility] HPI - General Stated complaint: Headache, cough Time Seen by Provider: 01/23/20 18:03 Mode of Arrival: Ambulatory Source of Information: Patient Limitations: No Limitations Description of Symptoms (Recalled from Triage Doc. by RN): started yesterday with headache and cough HEENT Symptoms (Recalled from RN notes): Yes Resp Symptoms (Recalled from RN notes): No Skin Symptoms (Recalled from RN notes): No MS Symptoms (Recalled from RN notes): No Functional Status (Recalled from RN notes): wnl - History of Present Illness Provider Complaint: Patient states that she has sinus problems already and has been having some sinus pain and pressure on and off for over a week but for last several days she has been having headache, bodyaches, chills sinus pain and pressure along with cough and feeling of fullness under her eyes and feels like it is trying to move into her chest States that she wasnt sure if she had a sinus infection or may have flu or COVID - Related Data Home Medications Medication Instructions Recorded Confirmed Fluticasone/Salmeterol [Advair 1 inh INHALATION BID 12/04/19 01/05/20 250/50mcg Diskus] budesonide-formoterol HFA 160 2 puff INHALATION g 12/15/19 01/05/20 mcg-4.5 mcg/actuation aerosol inhaler levalbuterol tartrate 45 2 inh INHALATION g 12/15/19 01/05/20
[2020-01-23 18:26] LABS: UTC Influenza A Antigen Negative (Negative); UTC Influenza B Antigen Negative (Negative); UTC Strep Screen (Rapid) Negative (Negative)
[2020-01-23 18:31] VITALS: BP 129/96; PULSE 106; RESP 20; TEMP 36.7; O2SAT 98
== END 2020-01-23 18:45 | disposition home or self-care (01) ==
PROVIDERS: Emergency Provider Nurse Practitioner; PCP Physician Assistant
DX: J20.9 Acute bronchitis, unspecified (principal); J32.9 Chronic sinusitis, unspecified; Z20.828 Contact with and (suspected) exposure to other viral communicable diseases; J44.9 Chronic obstructive pulmonary disease, unspecified; I10 Essential (primary) hypertension; E78.5 Hyperlipidemia, unspecified; F41.8 Other specified anxiety disorders; M79.7 Fibromyalgia; Z88.1 Allergy status to other antibiotic agents; Z88.5 Allergy status to narcotic agent; Z90.79 Acquired absence of other genital organ(s); Z90.710 Acquired absence of both cervix and uterus
CPT/HCPCS: 87804; 87880; 99202; U0003

== ENCOUNTER → 2020-02-16 09:00 | Outpatient (CLI) | payer BC, SELFPAY ==
--- NOTE | 2020-02-16 09:03 | XR_ITS ---
PROCEDURE: XR FOOT WT BEARING LT 3V CLINICAL INDICATION: pain COMPARISON: CR FTL3 FOOT-LT-3 VIEWS from 07/27/2016 CR FTL3 FOOT-LT-3 VIEWS from 12/05/2016 CR FTR3 FOOT-RT-3 VIEWS from 12/05/2016 FINDINGS: No fracture or dislocation. No lytic or blastic change. There is normal mineralization. The joint spaces are well-preserved. No significant degenerative/arthritic changes. No erosive changes evident. Other findings:None. IMPRESSION: No acute findings. Dictated by: Gabe Solorzano MD 02/16/2020 16:54 Gabe Solorzano MD in [place] 02/16/2020 16:54
--- NOTE | 2020-02-16 09:03 | XR_ITS ---
PROCEDURE: XR FOOT WT BEARING RT 3V CLINICAL INDICATION: pain COMPARISON: CR FTL3 FOOT-LT-3 VIEWS from 07/27/2016 CR FTL3 FOOT-LT-3 VIEWS from 12/05/2016 CR FTR3 FOOT-RT-3 VIEWS from 12/05/2016 FINDINGS: No fracture or dislocation. No lytic or blastic change. There is normal mineralization. The joint spaces are well-preserved. No significant degenerative/arthritic changes. No erosive changes evident. Other findings:None. IMPRESSION: No acute findings. Dictated by: Gabe Solorzano MD 02/16/2020 16:54 Gabe Solorzano MD in [place] 02/16/2020 16:54
== END ==
PROVIDERS: PCP Physician Assistant; Visit Provider Podiatrist
DX: M79.672 Pain in left foot (principal); M79.671 Pain in right foot
CPT/HCPCS: 73630

== ENCOUNTER → 2020-02-23 09:25 | Outpatient (CLI) | payer BC, SELFPAY ==
--- NOTE | 2020-02-23 09:25 | MR_ITS ---
PROCEDURE: MR FOOT RT WO/W CON CLINICAL INDICATION: soft tissue mass Pt has palpable soft tissue mass on plantar surface of both feet. Enlarging painful palpable area along the plantar surface of the right foot, plantar fibromatosis versus neoplasm or cyst COMPARISON: MR MR FOOT LT WO/W CON from 02/23/2020 TECHNIQUE: Routine multiplanar multi echo sequences are performed without gadolinium enhancement. FINDINGS: No fracture or dislocation. No bone marrow edema apparent. Marker is placed to denote the area of palpable concern. Just deep to the placed marker there is an elliptical area of enlargement of the plantar fascia which measures approximately 1.7 cm in length and 0.6 cm in thickness. This is hypointense on T1 and hypointense on T2 with a central area of slight increased T1 and T2 signal and demonstrates some mild contrast enhancement consistent with plantar fibromatosis. No cystic area evident at this region. There is some mild generalized the edema the subcutaneous fat at the heel pad. No obvious ligamentous or tendinous abnormalities. IMPRESSION: Findings compatible with plantar fibromatosis. Small area subcutaneous edema within the heel pad superficial to the calcaneus. Dictated by: Gabe Solorzano MD 02/29/2020 08:20 Gabe Solorzano MD in [place] 02/29/2020 08:20
--- NOTE | 2020-02-23 09:25 | MR_ITS ---
PROCEDURE: MR FOOT LT WO/W CON CLINICAL INDICATION: soft tissue mass, progressive increase in foot pain, plantar fibromas progressing versus fluid-filled cyst or malignant neoplasm the Pt has palpable soft tissue mass on plantar surface of both feet. COMPARISON: CR XR FOOT WT BEARING LT 3V from 02/16/2020 TECHNIQUE: Routine multiplanar multi echo sequences are performed without gadolinium enhancement. FINDINGS: No fracture or dislocation. No bone marrow edema. Ligaments and tendons appear intact. There is focal and somewhat nodular thickening of the plantar fascia at its mid aspect mcc between the insertion at the calcaneus and the metatarsal heads. This area of thickening measures 3.6 cm in length and approximately 5 mm in thickness. This corresponds to the palpable abnormality. There is this is isointense on T1 and T2 with only minimal increase T2 signal medially. There does appear to be some mild enhancement at this region as well. This is consistent with plantar fibromatosis. No cystic areas are evident at this region. There is a small area of contrast enhancement along the medial aspect of the foot medial to the sustentacular juan pablo. This is nonspecific suggesting some mild local inflammatory change. No other significant anomalies are evident. IMPRESSION: Findings are compatible with plantar fibromatosis corresponding to patient's palpable abnormality. Nonspecific small area of contrast enhancement medial to the sustentacular juan pablo Dictated by: Gabe Solorzano MD 02/29/2020 08:03 Gabe Solorzano MD in [place] 02/29/2020 08:03
== END ==
LOC: RAD 09:25
PROVIDERS: PCP Physician Assistant; Visit Provider Podiatrist
DX: M72.2 Plantar fascial fibromatosis (principal); M79.89 Other specified soft tissue disorders
CPT/HCPCS: 73720; A9576

== ENCOUNTER → 2020-02-26 12:48 | Outpatient (CLI) | payer BC, SELFPAY ==
--- NOTE | 2020-02-26 12:52 | XR_ITS ---
PROCEDURE: XR KNEE RT 4V CLINICAL INDICATION: RT knee pain COMPARISON: CR [id number] XR knee RT 4V from 02/06/2018 CR XR KNEE RT 4V from 05/04/2019 FINDINGS: No fracture or dislocation. No lytic or blastic change. There is normal mineralization. There are minimal osteoarthritic changes of the medial compartment and patellofemoral joint with small suprapatellar effusion. Other findings:None. IMPRESSION: Mild osteoarthritis with small suprapatellar effusion.. The osteoarthritic change appears slightly worse. Dictated by: Gabe Solorzano MD 02/26/2020 13:54 Gabe Solorzano MD in [place] 02/26/2020 13:54
== END ==
LOC: RAD 12:49
PROVIDERS: PCP Physician Assistant; Visit Provider Orthopaedic Surgery
DX: S89.91XA Unspecified injury of right lower leg, initial encounter (principal)
CPT/HCPCS: 73564

== ENCOUNTER → 2020-03-02 15:54 | Outpatient (CLI) | payer BC, SELFPAY ==
[2020-03-02 23:45] LABS: Chloride 106 mmol/L (98-107); Potassium 4.2 mmoL/L (3.5-5.1); Sodium 143 mmol/L (136-145)
[2020-03-02 23:48] LABS: Anion Gap 14.2 mEq/L (5-15); Blood Urea Nitrogen 28 mg/dl (7-17); Carbon Dioxide 27 mmol/L (22.0-30.0); Estimated Glomerular Filt Rate 58 ml/min (>60); GFR (African American) 71 ML/MIN (>60)
[2020-03-02 23:49] LABS: Calcium 9.4 mg/dl (8.4-10.2); Glucose 111 mg/dl (74-100); Magnesium 2.3 mg/dl (1.6-2.3)
== END ==
PROVIDERS: Visit Provider Physician Assistant
DX: R53.83 Other fatigue (principal)
CPT/HCPCS: 80048; 83735

== ENCOUNTER → 2020-03-25 14:51 | Outpatient (CLI) | payer BC, SELFPAY ==
--- NOTE | 2020-03-25 14:52 | CT_ITS ---
PROCEDURE: CT CHEST WO CON CLINICAL INDICATION: 1 year f/u follow up lung nodule bronchitis approx 1 month ago prior 03/13/19 COMPARISON: CT CT CHEST WO CON from 03/13/2019 TECHNIQUE: Axial images obtained with sagittal and coronal reformats. All CT scans at the facility use one or more dose reduction, viz: automated exposure control, ma/kV adjustment per patient size (including targeted exams where dose is matched to indication, i.e. head), or iterative reconstruction technique. FINDINGS: HEART AND MEDIASTINAL STRUCTURES: Scattered small mediastinal nodes are present. There is slight increased soft tissue density in the anterior mediastinum which is nonspecific and not significantly changed. LUNGS AND PLEURAL SPACES: Paraseptal emphysematous changes/COPD. Stable 3 mm nodule right upper lobe image 40 series 3. Stable 4 mm nodule right upper lobe image 24 series 3. Stable 3 mm nodule left lower lobe image 51 series 3. No new suspicious nodules BONY STRUCTURES: Degenerative changes thoracic spine UPPER ABDOMEN: Prior cholecystectomy ADDITIONAL FINDINGS: No other significant abnormalities. IMPRESSION: Stable CT appearance of the chest. No change small bilateral pulmonary nodules. COPD with paraseptal emphysema Dictated by: Gabe Solorzano MD 03/27/2020 08:57 Gabe Solorzano MD in [place] 03/27/2020 08:57
== END ==
LOC: RAD 14:52
PROVIDERS: PCP Physician Assistant; Visit Provider Physician Assistant
DX: R91.1 Solitary pulmonary nodule (principal)
CPT/HCPCS: 71250

== ENCOUNTER → 2020-04-12 08:34 | Outpatient (POV) | payer BC, SELFPAY | PROVIDERS: Visit Provider Dermatology | DX: Z00.00 Encounter for general adult medical examination without abnormal findings (principal) ==

== ENCOUNTER → 2020-04-18 11:20 | Outpatient (CLI) | payer BC, SELFPAY ==
--- NOTE | 2020-04-18 11:25 | XR_ITS ---
PROCEDURE: XR CHEST PORTABLE CLINICAL HISTORY: COVID OUTPATIENT COMPARISON: CR Chest from 10/18/2018 CR XR CHEST 2V from 02/16/2019 CR XR CHEST 2V from 07/07/[address] CHEST WO CON from 03/25/2020 FINDINGS: The cardiomediastinal silhouette and pulmonary vascularity are within normal limits. The lungs are clear without infiltrates, suspicious nodules, or pleural effusions. No acute bony abnormalities. IMPRESSION: No acute findings. Dictated by: Dr. Jamar Chance MD 04/18/2020 12:28 Dr. Jamar Chance MD in [place] 04/18/2020 12:28
== END ==
PROVIDERS: PCP Physician Assistant; Visit Provider Physician Assistant
DX: Z03.818 Encounter for observation for suspected exposure to other biological agents ruled out (principal)
CPT/HCPCS: 71045; U0003

== ENCOUNTER → 2020-04-29 08:38 | Outpatient (CLI) | payer BC, SELFPAY ==
--- NOTE | 2020-04-29 08:38 | MM_ITS ---
PROCEDURE: MM DIG SCREENING MAMM BI W/CAD Digital Breast Tomosynthesis Included CLINICAL INDICATION: Breast cancer screening There is a history of breast cancer in the patient's maternal grandmother. COMPARISON: MG MM SCREENING DIGITAL IMAGE BILATERAL from 05/26/2009 MG MM L-MAMM FU VIEWS from 06/09/2009 MG DMSB DIG MAMM-SCREEN KAREN from 10/21/2015 TECHNIQUE: Standard CC and MLO images and 3D Tomosynthesis was obtained. R2 CAD reviewed. FINDINGS: Mild scattered fibroglandular densities are seen in the central portions of both breast on a background of primarily fatty breast parenchyma. Findings are bilateral and symmetrical. There is no suspicious lesion and no suspicious microcalcifications. IMPRESSION: Fibrofatty parenchyma with no suspicious lesions seen BI-RAD Category: 1 Negative FOLLOW-UP: 1YR 1 Year Follow-up (A letter has been sent to the patient regarding results of the study.) Dictated by: Dr. Jamar Chance MD 05/01/2020 10:18 Dr. Jamar Chance MD in [place] 05/01/2020 10:18
== END ==
PROVIDERS: PCP Physician Assistant; Visit Provider Physician Assistant
DX: Z12.31 Encounter for screening mammogram for malignant neoplasm of breast (principal)
CPT/HCPCS: 77063; 77067

== ENCOUNTER → 2020-05-26 14:43 | Outpatient (CLI) | payer BC, SELFPAY ==
--- NOTE | 2020-05-26 15:04 | XR_ITS ---
PROCEDURE: XR CHEST PORTABLE CLINICAL HISTORY: COVID TESTING Cough and shortness of air COMPARISON: CR XR CHEST 2V from 02/16/2019 CR XR CHEST 2V from 07/07/[address] CHEST WO CON from 03/25/2020 CR XR CHEST PORTABLE from 04/18/2020 FINDINGS: The cardiomediastinal silhouette and pulmonary vascularity are within normal limits. The lungs are clear without infiltrates, suspicious nodules, or pleural effusions. No acute bony abnormalities. IMPRESSION: No acute findings. Dictated by: Gabe Solorzano MD 05/26/2020 15:43 Gabe Solorzano MD in [facility] 05/26/2020 15:43
[2020-05-26 15:57] LABS: Basophils # 0.1 K/mm3 (0-0.2); Basophils % 0.7 % (0.1-2.0); Eosinophils # 0.1 K/mm3 (0.0-0.4); Eosinophils % 1.2 % (0.1-12.0); Hematocrit 43.7 % (37.0-47.0); Hemoglobin 14.3 g/dL (12.2-16.2); Lymphocytes # 3.1 K/mm3 (0.7-4.5); Lymphocytes % 36.3 % (10-50); Mean Corpuscular HGB Conc 32.6 g/dL (31.8-35.4); Mean Corpuscular Hemoglobin 30.5 pg (27.0-31.2); Mean Corpuscular Volume 93.4 fl (81-99); Mean Platelet Volume 8.5 fl (7.4-10.4); Monocytes # 0.5 K/mm3 (0.1-1.0); Monocytes % 6.2 % (1.7-9.3); Neutrophils # 4.8 K/mm3 (1.8-7.8); Neutrophils % 55.6 % (37.0-80.0); Platelet Count 226 K/mm3 (142-424); Red Blood Count 4.67 M/mm3 (4.20-5.40); Red Cell Distribution Width 12.9 % (11.5-17.5); White Blood Count 8.7 K/mm3 (4.8-10.8)
[2020-05-26 16:12] LABS: Coronavirus 19 IgG Antibody Negative (Negative); Coronavirus 19 IgM Antibody Negative (Negative)
[2020-05-28 15:13] LABS: Immunoglobulin A, Qn 264 mg/dL (87-352); Immunoglobulin G, Qn 695 mg/dL (586-1602); Immunoglobulin M, Qn 152 mg/dL (26-217)
[2020-05-28 18:55] LABS: Alpha-1-Antitrypsin 139 mg/dL (101-187)
[2020-06-01 06:54] LABS: D001-IgE D pteronyssinus <0.10 kU/L (Class 0); D002-IgE D farinae <0.10 kU/L (Class 0); E001-IgE Cat Dander <0.10 kU/L (Class 0); E005-IgE Dog Dander <0.10 kU/L (Class 0); G002-IgE Bermuda Grass <0.10 kU/L (Class 0); G006-IgE Timothy Grass <0.10 kU/L (Class 0); I006-IgE Cockroach, German <0.10 kU/L (Class 0); Immunoglobulin E, Total 17 IU/mL (6-495); M001-IgE Penicillium chrysogen <0.10 kU/L (Class 0); M002-IgE Cladosporium herbarum <0.10 kU/L (Class 0); M003-IgE Aspergillus fumigatus <0.10 kU/L (Class 0); M006-IgE Alternaria alternata <0.10 kU/L (Class 0); T001-IgE Maple/Box Elder <0.10 kU/L (Class 0); T006-IgE Cedar, Mountain <0.10 kU/L (Class 0); T007-IgE Oak, White <0.10 kU/L (Class 0); T008-IgE Elm, American <0.10 kU/L (Class 0); T010-IgE Walnut <0.10 kU/L (Class 0); T011-IgE Maple Leaf Sycamore <0.10 kU/L (Class 0); T014-IgE Cottonwood <0.10 kU/L (Class 0); T015-IgE Ash, White <0.10 kU/L (Class 0); T022-IgE Pecan, Hickory <0.10 kU/L (Class 0); T070-IgE White Mulberry <0.10 kU/L (Class 0); W001-IgE Ragweed, Short <0.10 kU/L (Class 0); W011-IgE Thistle, Russian <0.10 kU/L (Class 0); W014-IgE Pigweed, Common <0.10 kU/L (Class 0); W016-IgE Rough Marshelder <0.10 kU/L (Class 0)
[2020-06-01 22:06] LABS: E072-IgE Mouse Urine <0.10 kU/L (Class 0)
== END ==
LOC: COVID.OUT 14:45
PROVIDERS: Internal Medicine Pulmonary Disease; PCP Physician Assistant; Visit Provider Physician Assistant
DX: J41.1 Mucopurulent chronic bronchitis (principal); J45.909 Unspecified asthma, uncomplicated; J44.9 Chronic obstructive pulmonary disease, unspecified
CPT/HCPCS: 36415; 71045; 82103; 82784; 82785; 85025; 86003; 86328; 87275; 87276; U0003

== ENCOUNTER → 2020-06-08 10:14 | Outpatient (CLI) | payer BC, SELFPAY ==
--- NOTE | 2020-06-08 10:20 | XR_ITS ---
PROCEDURE: XR WRIST RT MIN 3V CLINICAL INDICATION: Pain/swelling after injury COMPARISON: No exams were available for comparison FINDINGS: Appear intact. The distal radius and ulna appear normal. There is no soft tissue swelling, the pronator quadratus fat pad is well seen which is a normal finding IMPRESSION: No acute findings. Dictated by: Dr. Jamar Chance MD 06/08/2020 10:42 Dr. Jamar Chance MD in [place] 06/08/2020 10:42
--- NOTE | 2020-06-08 10:20 | XR_ITS ---
PROCEDURE: XR HAND RT MIN 3V CLINICAL INDICATION: Pain/swelling after injury COMPARISON: No exams were available for comparison FINDINGS: No fracture or dislocation. No lytic or blastic change. There is normal mineralization. The joint spaces are well-preserved. No significant degenerative/arthritic changes. No erosive changes evident. Other findings:None. IMPRESSION: No acute findings. Dictated by: Dr. Jamar Chance MD 06/08/2020 10:41 Dr. Jamar Chance MD in [facility] 06/08/2020 10:41
== END ==
LOC: RAD 10:16
PROVIDERS: PCP Physician Assistant; Visit Provider Physician Assistant
DX: M25.531 Pain in right wrist (principal); M79.641 Pain in right hand
CPT/HCPCS: 73110; 73130

== ENCOUNTER → 2020-06-17 07:54 | Outpatient (CLI) | payer BC, SELFPAY ==
--- NOTE | 2020-06-17 07:54 | CT_ITS ---
PROCEDURE: CT SINUS WO CON CLINICAL HISTORY: Sinusitis COMPARISON: No exams were available for comparison TECHNIQUE: Axial images obtained with sagittal and coronal reformats. All CT scans at the facility use one or more dose reduction, viz: automated exposure control, ma/kV adjustment per patient size (including targeted exams where dose is matched to indication, i.e. head), or iterative reconstruction technique. FINDINGS: Status post bilateral maxillary and antrostomies and middle turbinectomies anteriorly. The antrostomies are widely patent. No air-fluid levels. Unremarkable ethmoid sinuses. The sphenoid sinuses and frontal sinuses are unremarkable. No significant maxillary mucosal thickening. No mastoid effusion. There is mild leftward nasal septal deviation. Unremarkable TMJs. The orbits have an unremarkable appearance. IMPRESSION: Postsurgical changes. No evidence of significant mucosal thickening or air-fluid levels. Dictated by: Gabe Solorzano MD 06/19/2020 09:58 Gabe Solorzano MD in [place] 06/19/2020 09:58
== END ==
LOC: RAD 07:54
PROVIDERS: PCP Physician Assistant; Visit Provider Physician Assistant
DX: J32.9 Chronic sinusitis, unspecified (principal)
CPT/HCPCS: 70486

== ENCOUNTER → 2020-06-23 09:00 | Outpatient (CLI) | payer BC, SELFPAY ==
--- NOTE | 2020-06-23 09:07 | XR_ITS ---
PROCEDURE: XR CHEST 2V CLINICAL HISTORY: PRIOR SMOKER,ASTHMA,COPD COMPARISON: CR XR CHEST 2V from 07/07/[address] CHEST WO CON from 03/25/2020 CR XR CHEST PORTABLE from 04/18/2020 CR XR CHEST PORTABLE from 05/26/2020 FINDINGS: The cardiomediastinal silhouette and pulmonary vascularity are within normal limits. The lungs are clear without infiltrates, suspicious nodules, or pleural effusions. No acute bony abnormalities. IMPRESSION: No acute findings. Dictated by: Gabe Solorzano MD 06/23/2020 14:08 Gabe Solorzano MD in [place] 06/23/2020 14:08
--- NOTE | 2020-06-23 09:40 | ECG_ITS ---
APPROVED REPORT Exam: Resting ECG HR:65 bpm ECG Measurements Heart Rate 65 AXES AZ 148 P 57 QRSd 88 QRS 76 QT 434 T 59 QTc 451 Conclusion Normal sinus rhythm Normal ECG Electronically signed by : Mata Cole, 06/23/2020 10:05:22
[2020-06-23 09:43] LABS: Basophils # 0.1 K/mm3 (0-0.2); Basophils % 0.7 % (0.1-2.0); Eosinophils # 0.1 K/mm3 (0.0-0.4); Eosinophils % 1.2 % (0.1-12.0); Hematocrit 45.1 % (37.0-47.0); Hemoglobin 15.1 g/dL (12.2-16.2); Lymphocytes # 3.7 K/mm3 (0.7-4.5); Lymphocytes % 39.5 % (10-50); Mean Corpuscular HGB Conc 33.4 g/dL (31.8-35.4); Mean Corpuscular Volume 92.7 fl (81-99); Monocytes # 0.4 K/mm3 (0.1-1.0); Monocytes % 4.5 % (1.7-9.3); Neutrophils # 5.1 K/mm3 (1.8-7.8); Neutrophils % 53.9 % (37.0-80.0); Platelet Count 239 K/mm3 (142-424); Red Blood Count 4.87 M/mm3 (4.20-5.40); White Blood Count 9.4 K/mm3 (4.8-10.8)
[2020-06-23 10:08] LABS: Alanine Aminotransferase 30 U/L (12-78); Albumin Level 5.2 g/dl (3.5-5.0); Albumin/Globulin Ratio 1.6 (1.1-1.8); Alkaline Phosphatase 106 U/L (38-126); Aspartate Amino Transferase 33 U/L (14-36); Bilirubin,Total 0.5 mg/dl (0.2-1.3); Blood Urea Nitrogen 20 mg/dl (7-17); Calcium 10.1 mg/dl (8.4-10.2); Carbon Dioxide 27 mmol/L (22.0-30.0); Chloride 104 mmol/L (98-107); Estimated Glomerular Filt Rate 58 ml/min (>60); GFR (African American) 70 ML/MIN (>60); Globulin 3.2 g/dL (1.3-3.2); Glucose 99 mg/dl (74-100); Sodium 141 mmol/L (136-145); Total Protein,Serum 8.4 g/dl (6.3-8.2)
[2020-06-23 10:25] LABS: 25-OH Vitamin D, Total 23.6 ng/mL (30-100)
== END ==
PROVIDERS: PCP Physician Assistant; Visit Provider Podiatrist
DX: Z01.818 Encounter for other preprocedural examination (principal); M79.89 Other specified soft tissue disorders; E55.9 Vitamin D deficiency, unspecified
CPT/HCPCS: 36415; 71046; 80053; 82306; 85025; 93005

== ENCOUNTER → 2020-07-20 10:11 | Outpatient (CLI) | payer BC, SELFPAY ==
[2020-07-20 10:40] VITALS: PULSE 88; PULSE 90
== END ==
PROVIDERS: PCP Physician Assistant; Visit Provider Internal Medicine Pulmonary Disease
DX: R06.00 Dyspnea, unspecified (principal)
CPT/HCPCS: 94060; 94640; 94726; 94729

== ENCOUNTER → 2020-08-22 09:31 | Outpatient (CLI) | payer BC, SELFPAY ==
[2020-08-22 10:08] LABS: Basophils # 0.1 K/mm3 (0-0.2); Basophils % 0.7 % (0.1-2.0); Eosinophils # 0.1 K/mm3 (0.0-0.4); Eosinophils % 1.1 % (0.1-12.0); Hematocrit 46.8 % (37.0-47.0); Hemoglobin 15.5 g/dL (12.2-16.2); Lymphocytes # 3.4 K/mm3 (0.7-4.5); Lymphocytes % 30.2 % (10-50); Mean Corpuscular HGB Conc 33.2 g/dL (31.8-35.4); Mean Corpuscular Hemoglobin 30.3 pg (27.0-31.2); Mean Corpuscular Volume 91.2 fl (81-99); Mean Platelet Volume 8.1 fl (7.4-10.4); Monocytes # 0.4 K/mm3 (0.1-1.0); Monocytes % 3.3 % (1.7-9.3); Neutrophils # 7.4 K/mm3 (1.8-7.8); Neutrophils % 64.7 % (37.0-80.0); Platelet Count 222 K/mm3 (142-424); Red Blood Count 5.13 M/mm3 (4.20-5.40); Red Cell Distribution Width 12.6 % (11.5-17.5); White Blood Count 11.4 K/mm3 (4.8-10.8)
[2020-08-22 10:24] LABS: Alanine Aminotransferase 35 U/L (12-78); Albumin Level 4.7 g/dl (3.5-5.0); Albumin/Globulin Ratio 1.5 (1.1-1.8); Alkaline Phosphatase 90 U/L (38-126); Anion Gap 11.6 mEq/L (5-15); Aspartate Amino Transferase 37 U/L (14-36); Bilirubin,Total 0.3 mg/dl (0.2-1.3); Blood Urea Nitrogen 21 mg/dl (7-17); Calcium 9.6 mg/dl (8.4-10.2); Carbon Dioxide 25 mmol/L (22.0-30.0); Chloride 109 mmol/L (98-107); Estimated Glomerular Filt Rate 66 ml/min (>60); GFR (African American) 80 ML/MIN (>60); Globulin 3.1 g/dL (1.3-3.2); Glucose 146 mg/dl (74-100); Potassium 3.6 mmoL/L (3.5-5.1); Sodium 142 mmol/L (136-145); Total Protein,Serum 7.8 g/dl (6.3-8.2)
[2020-08-22 10:39] LABS: Coronavirus 19 IgG Antibody Positive (Negative); Coronavirus 19 IgM Antibody Negative (Negative)
== END ==
PROVIDERS: Visit Provider Podiatrist
DX: Z01.812 Encounter for preprocedural laboratory examination (principal); Z20.822 Contact with and (suspected) exposure to COVID-19
CPT/HCPCS: 36415; 80053; 85025; 86328

== ENCOUNTER 2020-08-24 07:01 | Day surgery (SDC) | payer BC, SELFPAY ==
[2020-08-22 11:19] VITALS: BMI 26.6
[2020-08-24] VITALS (11 sets, daily range): BP systolic 96–136; BP diastolic 63–90; PULSE 76–98; RESP 16–18; TEMP 36.6–40.5; O2SAT 91–98
--- NOTE | 2020-08-24 10:33 | P.PN_ITS ---
[facility] Anesthesia Checklist - Patient Identification Patient Identification: Arm Band - Structural Data Admitted From: Home Planned Operative Procedure/s: Excision Soft Tissue Mass Left Foot Consent for Planned Operative Procedure(s) Verified: Yes Verified Documents: Surgical Consent, History and Physical - NPO Status Verified Time NPO: 00:00 - Additional verifications Anesthesia Reactions: No Hx Blood Transfusions: No Blood Transfusion Reaction: No - Airway Assessment C-Spine Mobility Assessed: Yes (mp2) TMJ Mobility Assessed: Yes Dentition: Good Dentition - Neurological Assessment Level of Consciousness: Awake, Alert - Anesthesia Plan Anesthesia Risk discussed: Yes Anesthesia Plan: Verified ASA Class: II Anesthesia Type: General w/block (Risks Benefits of Popliteal/saphenous nerve block. Pt verbalized understanding) [facility] History 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: Reports:: Anxiety, Asthma, Congestive Heart Failure, Chronic Obstructive Pulmonary Disease (COPD), Deep Vein Thrombosis, Depression, Gastroi ntestinal Bleed, Hyperlipidemia, Hypertension, Lung Disease, Urinary Tract Infection Denies:: Cancer, Diabetes Mellitus Type 1, Diabetes Mellitus Type 2, Home Oxygen, Internal Pacemaker, MRSA, Seizures *Have you ever received a pneumonia vaccine?: Yes *Have you received a flu vaccine this season?: Yes Other 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: Reports: Arthritis, Fibromyalgia, Other. Denies: Blood Transfusion Reaction Anesthesia experience/problems:: nac Laterality Cases: Bilateral: Tonsillectomy Other Surgeries: Yes: Cardiac Catheterization (2 years ago ), Cholecystectomy, Colonoscopy, EGD, Hysterectomy-Total, Hysterectomy-Partial, Plastic Surgery, Sinus Surgery, Other. No: Pacemaker Amputation: No Fractures: No - *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 Last grade of school completed: Advanced degree Smoking Status: Never smoker Tobacco Type: cigarettes # Packs/Day (cigarettes): 1 Alcohol Intake: current Alcohol Intake Frequency:: a few times a month Substance Use Type: denies use *Occupational Status:: employed Housing: house Household Members: spouse *Travel in the last 8 weeks: None - Psychiatric History Pschychiatric History:: Reports:: Anxiety, Depression Family Hx:: Cancer, Heart Attack, Hypertension, Asthma, Substance abuse, Alcoholism, Mental illness
--- NOTE | 2020-08-24 12:00 | XR_ITS ---
PROCEDURE: XR FOOT LT MIN 3V CLINICAL INDICATION: Post op mass Follow-up surgery COMPARISON: CR FTL3 FOOT-LT-3 VIEWS from 12/05/2016 CR FTR3 FOOT-RT-3 VIEWS from 12/05/2016 CR XR FOOT WT BEARING LT 3V from 02/16/2020 CR XR FOOT WT BEARING RT 3V from 02/16/2020 FINDINGS: There is a posterior splint in place. Surgical drain is present along the plantar surface of the foot. Fine bony detail is somewhat obscured by the underlying splint. No acute fracture or dislocation. The joint spaces are well-preserved. No significant degenerative/arthritic changes. No erosive changes evident. Other findings:None. IMPRESSION: Postsurgical changes with surgical drain and posterior splint. Dictated by: Gabe Solorzano MD 08/24/2020 13:28 Gabe Solorzano MD in [place] 08/24/2020 13:28
--- NOTE | 2020-08-24 12:02 | P.PN_ITS ---
[facility] Anesthesia Record Part I Intake, IV Amount: 1,300 Estimated blood loss (mL): 10 Urine output (mL): 0 Blood Pressure: 118/85 SaO2: 94 Pulse Rate: 98 Respiratory Rate: 16 Temperature: 98.4 F Patient is:: Drowsy, Stable Stable to PACU at:: 12:00
--- NOTE | 2020-08-24 14:35 | HMH.OPNOTE ---
Date of procedure: 08/24/20 Pre-op Diagnosis:: 1. Plantar fascial fibromatosis, plantar fasciitis 2. Mass of soft tissue, left foot 3. Neoplasm of uncertain behavior of skin of foot 4. Gastrocnemius equinus of left lower extremity 5. Contracture, fascia, plantar 6. Chronic obstructive pulmonary disease, unspecified COPD type 7. Lumbar radiculopathy 8. Overweight (BMI 25.0-29.9) 9. Vitamin D deficiency Post-op Diagnosis:: Same Procedure performed:: 1. Left foot excision of soft tissue mass 2. Left soft tissue biospy 3. Left plantar fasciotomy 4. Left gastrocnemius recession 5. Application of amniotic graft, injectable graft 6. Application of LUTHER drain 7. Application of posterior splint Surgeon:: Christal Rutldege DPM Anesthesia: GETA, regional (left popliteal, saphenous nerve block) Estimated blood loss (mL): 20 Clinical Note:: Patient is a 50-year-old female who presents for follow-up evaluation of bilateral plantar soft tissue masses. She has tried conservative care but the pain is getting worse. She reports the left nodules are bigger and more painful, affecting daily life and work. Metatarsal pads to offload the plantar soft tissue masses b/l. Patient can ice, elevate and use NSAIDs as needed. Patient is wearing wide supportive shoes and avoiding barefoot walking. Conservative treatment discussed but has been exhausted, including: ice, elevation, modification of shoe gear, modification of activity, NSAIDs, Voltaren gel, continue compounding pain cream, injections, strapping/bracing, stretching/therapy, night splint. We discussed surgery. All risks and benefits were discussed including but not limited to: recurrence of the mass, damage to blood vessels and nerves, bleeding, infection, wound complications, need for further surgery, prolonged swelling of the extremity, prolonged pain, RSD/CRPS, DVT, and anesthetic complications. I explained the complications of STM removal including but not limited to temporary or permanent nerve injury, resection of plantar fascia leading to decreased arch height prolonged pain, permanent flatfoot. The patient understands surgery would entail loss of plantar fascia which will weaken the plantar musculature leading to lifelong use of orthotics or stability braces due to plantar muscle weakness, loss of arch height and increasing chance for arthritis. No guarantees were given. All questions fully answered. The patient verbalized understanding and agreed to proceed with surgery. Consent was obtained. Patient does report a history of infection after surgeries. She was unsure what type of infection. Discussed oral antibiotics x2 weeks postoperatively. Necessary labs and pre-op testing ordered, 06/23/20: wbc 9.4, gfr 58, glucose 99, vit D 23.6. Chest xray: no acute findings. EKG: normal sinus rhythm. She will need fracture boot. Medical (Isauro Rooney/Dr. Herring) and pulmonary (Dr. Pressley) clearance granted. Operative findings:: Left gastrocnemius equinus deformity with contracture of the plantar fascia. There was a palpable multilobular firm mass noted to the medial and central band of the plantar fascia. The mass was located within the medial and central band of the plantar fascia. The plantar fascia at the level of the mass appeared to be shredded and degenerated. There was scarring of the subcutaneous tissue against the plantar fascia. The large suspected plantar fibroma measured approximately 5 x 3.9 cm, and was 0.4 mm thick. There was no ganglion on cyst like jelly. There was no drainage, purulence or malodor. No obvious signs of infection noted. Operative note:: On this date and time, the patient was deemed an appropriate surgical candidate. With informed consent signed, the patient was taken to the operating theater after a pre-op regional popliteal and saphenous nerve block was given by anesthesia. The patient was positioned supine. General anesthesia was induced. Tourniquet was applied to the LEFT mid calf. The LEFT lower extremity
--- NOTE | 2020-08-25 10:00 | HMH.ANESII ---
[facility] Anesthesia Record Part II Discharge Time: 12:30 Destination: Surgical Day Care (OP Surgery) PACU nurse assessment reviewed?: Yes Patient Condition:: Good Anesthesia Complications:: None Swallowing reflex intact?: Yes Cyanosis?: No Blood Pressure: 103/63 Pulse Rate: 84 Temperature: 98.4 F Mental Status: Alert & Oriented Pain level:: 0 Nausea and/or vomitting:: None Intake, IV Amount: 0
[2020-08-25 10:01] VITALS: BP 103/63; PULSE 84; TEMP 36.9
== END 2020-08-24 13:21 | disposition home or self-care (01) ==
LOC: OR 07:02
PROVIDERS: PCP Physician Assistant; Visit Provider Podiatrist
PROC: (CPT 28008; principal; 2020-08-24 08:45)
DX: M72.2 Plantar fascial fibromatosis (principal); M79.89 Other specified soft tissue disorders; E55.9 Vitamin D deficiency, unspecified; M24.575 Contracture, left foot; M79.672 Pain in left foot; D21.22 Benign neoplasm of connective and other soft tissue of left lower limb, including hip; I11.0 Hypertensive heart disease with heart failure; I50.9 Heart failure, unspecified; J45.909 Unspecified asthma, uncomplicated; E78.5 Hyperlipidemia, unspecified; Z79.899 Other long term (current) drug therapy; Z88.1 Allergy status to other antibiotic agents
CPT/HCPCS: 28008; 27687; 15275; 28041; 13132; 73630; C1762; J2405; Q4211

== ENCOUNTER → 2020-11-30 13:37 | Outpatient (CLI) | payer BC, SELFPAY ==
--- NOTE | 2020-11-30 13:43 | XR_ITS ---
PROCEDURE: XR FOOT WT BEARING LT 3V CLINICAL INDICATION: pain r/t to fall COMPARISON: CR FTR3 FOOT-RT-3 VIEWS from 12/05/2016 CR XR FOOT WT BEARING LT 3V from 02/16/2020 CR XR FOOT WT BEARING RT 3V from 02/16/2020 CR XR FOOT LT MIN 3V from 08/24/2020 FINDINGS: Mild generalized osteopenia. No acute fracture or dislocation evident. The joint spaces are well-preserved. No significant degenerative/arthritic changes. No erosive changes evident. Other findings:None. IMPRESSION: No acute findings. Dictated by: Gabe Solorzano MD 11/30/2020 14:12 Gabe Solorzano MD in [place] 11/30/2020 14:12
== END ==
PROVIDERS: PCP Physician Assistant; Visit Provider Podiatrist
DX: M79.673 Pain in unspecified foot (principal); Z98.890 Other specified postprocedural states
CPT/HCPCS: 73630

== ENCOUNTER → 2021-01-07 10:20 | Outpatient (CLI) | payer BC, SELFPAY ==
--- NOTE | 2021-01-07 10:20 | MR_ITS ---
PROCEDURE INFORMATION: Exam: MR Left Lower Extremity Joint Without and With Contrast; Ankle Exam date and time: 01/07/2021 10:20 AM Age: 50 years old Clinical indication: Prior surgery; Surgery date: 1-6 months; Surgery type: Left achilles tendon release; Patient HX: PT states she had an achilles tendon release on August 24, 2020 and a couple pf months after surgery she reinjured her left ankle and heard a pop . PT C/O pain distal posterior ankle. 16 ml prohance used for contrast; Additional info: Achilles tendon injury/pain TECHNIQUE: Imaging protocol: MR of the Left lower extremity without and with contrast. Exam focused on the ankle. Contrast material: ISOVUE; Contrast volume: 16 ml; Contrast route: IV; COMPARISON: MR FOOT LT WO/W CON 02/23/2020 9:41 AM FINDINGS: Bones and cartilage: See Achilles tendon finding. Joint spaces: No joint effusion. LIGAMENTS: Distal tibiofibular syndesmosis: Unremarkable. No tear. Anterior talofibular ligament: Unremarkable. No tear. Posterior talofibular ligament: Unremarkable. No tear. Calcaneofibular ligament: Unremarkable. No tear. Deltoid ligament complex: Unremarkable. No tear. TENDONS: Flexor tendons of foot: Unremarkable as visualized. Tibialis posterior tendon: Unremarkable as visualized. Peroneal tendons: Unremarkable as visualized. Extensor tendons of foot: Unremarkable as visualized. Tibialis anterior tendon: Unremarkable as visualized. Achilles tendon: The Achilles tendon is been surgically altered by previous release. Level of the surgery appears to be superior to the field of view provided with some thickening and increased signal with distortion of the tendon seen at the superior aspect of the images. Injury proximal to this cannot be excluded. Tendon distal to this is intact and unremarkable. Tarsal canal (Sinus tarsi): Unremarkable. Normal signal of the fat. Tarsal tunnel: Unremarkable. Muscles: Unremarkable. Soft tissues: See Achilles tendon finding. Plantar fascia: Plantar fascia is unremarkable. IMPRESSION: The Achilles tendon has been surgically altered by previous release. Level of the surgery appears to be superior to the field of view provided with some thickening and increased signal with distortion of the tendon seen at the superior aspect of the images. Injury proximal to this cannot be excluded. Tendon distal to this is intact and unremarkable.
== END ==
PROVIDERS: PCP Physician Assistant; Visit Provider Podiatrist
DX: M76.62 Achilles tendinitis, left leg (principal); S86.012A Strain of left Achilles tendon, initial encounter
CPT/HCPCS: 73723; A9576

== ENCOUNTER → 2021-02-08 18:09 | Outpatient (CLI) | payer BC, SELFPAY ==
[2021-02-08 19:03] LABS: Basophils # 0.1 K/mm3 (0-0.2); Basophils % 0.8 % (0.1-2.0); Eosinophils # 0.1 K/mm3 (0.0-0.4); Eosinophils % 1.1 % (0.1-12.0); Hematocrit 49.2 % (37.0-47.0); Hemoglobin 15.7 g/dL (12.2-16.2); Lymphocytes # 3.3 K/mm3 (0.7-4.5); Lymphocytes % 29.1 % (10-50); Mean Corpuscular Hemoglobin 31.4 pg (27.0-31.2); Mean Corpuscular Volume 98.3 fl (81-99); Mean Platelet Volume 9.1 fl (7.4-10.4); Monocytes # 0.5 K/mm3 (0.1-1.0); Monocytes % 4.6 % (1.7-9.3); Neutrophils # 7.3 K/mm3 (1.8-7.8); Neutrophils % 64.4 % (37.0-80.0); Platelet Count 240 K/mm3 (142-424); Red Blood Count 5.01 M/mm3 (4.20-5.40); Red Cell Distribution Width 12.4 % (11.5-17.5); White Blood Count 11.3 K/mm3 (4.8-10.8)
[2021-02-08 19:21] LABS: 25-OH Vitamin D, Total 49.3 ng/mL (30-100)
[2021-02-08 19:29] LABS: Erythrocyte Sedimentation Rate 7 mm/hr (0-30)
[2021-02-08 19:58] LABS: Alanine Aminotransferase 28 U/L (12-78); Albumin Level 4.4 g/dl (3.5-5.0); Albumin/Globulin Ratio 1.4 (1.1-1.8); Alkaline Phosphatase 102 U/L (38-126); Anion Gap 15.2 mEq/L (5-15); Aspartate Amino Transferase 34 U/L (14-36); Bilirubin,Total 0.5 mg/dl (0.2-1.3); Blood Urea Nitrogen 16 mg/dl (7-17); Calcium 9.9 mg/dl (8.4-10.2); Carbon Dioxide 28 mmol/L (22.0-30.0); Chloride 103 mmol/L (98-107); Chol/HDL Ratio 6.2 (1-3.5); Cholesterol 292 mg/dl (140-200); Estimated Glomerular Filt Rate 88 ml/min (>60); GFR (African American) 106 ML/MIN (>60); Globulin 3.1 g/dL (1.3-3.2); Glucose 87 mg/dl (74-100); HDL Cholesterol 47 mg/dl (40-60); Potassium 4.2 mmoL/L (3.5-5.1); Sodium 142 mmol/L (136-145); Total Protein,Serum 7.5 g/dl (6.3-8.2); Triglycerides 237 mg/dl (30-150); VLDL Cholesterol 47 mg/dL (0-40)
[2021-02-08 20:09] LABS: C-Reactive Protein 5.2 mg/L (0-4); Direct LDL Cholesterol 195.26 mg/dL (100-129)
[2021-02-10 08:31] LABS: LH 34.3 mIU/mL (.); Progesterone 0.1 ng/mL (.)
[2021-02-11 16:09] LABS: Estrogen 59 pg/mL (.)
== END ==
PROVIDERS: Visit Provider Physician Assistant
DX: M25.50 Pain in unspecified joint (principal); R23.2 Flushing
CPT/HCPCS: 80053; 80061; 82306; 82672; 83001; 83002; 84144; 84443; 85025; 85651; 86140

== ENCOUNTER 2021-07-28 12:36 | Emergency (ER) | payer BC, SELFPAY ==
[2021-07-28 13:10] VITALS: BP 124/90; PULSE 72; RESP 18; TEMP 36.6; O2SAT 97; BMI 28.3
--- NOTE | 2021-07-28 13:16 | HMH.EDUTC ---
[facility] Disposition Condition on Discharge: Fair Time of Disposition: 13:26 <Savannah Cleaning - Last Filed: 07/28/21 13:16> Condition on Discharge: Good Time of Disposition: 14:13 <Mitch Grimes - Last Filed: 07/28/21 14:45> Clinical Impression: Migraine Qualifiers: Migraine type: without aura Status migrainosus presence: without status migrainosus Intractability: not intractable Qualified Code(s): G43.009 - Migraine without aura, not intractable, without status migrainosus Headache Qualifiers: Headache chronicity pattern: acute headache Disposition: Home, Self-Care Instructions: DI for Migraine Additional Instructions: Please follow-up with your primary care physician within about 1 week. Return to the emergency department if you feel worse in any way. Take [id number] ibuprofen and/or Tylenol for your headache. Referrals: Pia Rooney PA [Primary Care Provider] - Medical Decision Making - Lorenzo Inquiry Pt receiving controlled substance: No Lorenzo was queried for this patient: No <Savannah Cleaning - Last Filed: 07/28/21 13:16> - CT Data CT Scan: Head Time Received: 14:[address] Reviewed: Yes: I have reviewed the patient's CT results Preliminary Findings: Normal/NAD - Reevaluation(s) Time: 14:11 (The patient states that her headache has improved.) <Mitch Grimes - Last Filed: 07/28/21 14:45> Vital Signs: 07/28/21 13:10 07/28/21 13:31 Temperature 97.9 F 98 F Temperature Source Oral Oral Pulse Rate [Left] 72 73 Respiratory Rate 18 16 Blood Pressure [Right Arm] 124/90 148/83 H Blood Pressure Mean [Right Arm] 101 104 Blood Pressure Position [Right Arm] Sitting 02 Sat by Pulse Oximetry 97 98 Oxygen Delivery Method Room Air Orders (Tests/Meds): ED MEDICATIONS Discontinued Medications Generic Name Dose Route Start Last Admin Trade Name Freq PRN Reason Stop Dose Admin Ketorolac Tromethamine 30 mg 07/28/21 13:35 07/28/21 13:47 Ketorolac 30mg/Ml Vial IV 07/28/21 13:36 30 mg ONCE ONE Administration Metoclopramide HCl 10 mg 07/28/21 13:35 07/28/21 13:47 Metoclopramide Hcl 10mg/2ml Vial IVP 07/28/21 13:36 10 mg ONCE ONE Administration - CT Data Findings Narrative: I have reviewed the images of the patient's head CT and did not see any acute disease such as mass or hemorrhage. (Mitch Grimes) Medical Decision Narrative: Due to complaint of worse headache of her life with her vision blurry and distorted and not feeling right discussed with patient and recommended transfer to the ED for further work up and evaluation and patient agreed Called ED spoke with Carmen and patient was moved to room 11 ([place]) [facility] HPI - General Mode of Arrival: Ambulatory Source of Information: Patient Limitations: No Limitations Description of Symptoms (Recalled from Triage Doc. by RN): pt states she has a migraine but has no hx of migraines. pt states this is the worst HERNANDEZ she has ever had. pt c/o blurred vision, photophobia an difficulty opening her eyes. began at 1100 today. HEENT Symptoms (Recalled from RN notes): Yes Resp Symptoms (Recalled from RN notes): No Skin Symptoms (Recalled from RN notes): No MS Symptoms (Recalled from RN notes): No Functional Status (Recalled from RN notes): wnl - History of Present Illness Provider Complaint: Patient states that she does not have a history of migraines but has been having the worse headache of her life since about 11am States that it started with her vision being blurry and distorted and then the migraine hit quickly States that she has continued to have blurry vision and migraine State that she is not having any weakness in arms or legs and family brought her in to get her checked out States that she has espophogeal spasms and they have been acting up too - Worker's Comp Is this a Worker's Comp case?: No <CleaningSavannah - Last Filed: 07/28/21 13:16> - General Mode of Arrival: Ambulatory Source of Inform
[2021-07-28 13:31] VITALS: BP 148/83; PULSE 73; RESP 16; TEMP 36.6; O2SAT 98; BMI 28.3
--- NOTE | 2021-07-28 13:35 | CT_ITS ---
FINAL REPORT CLINICAL HISTORY: Headache with visual disturbances COMPARISON: 11/25/2017 FINDINGS: Axial images of the head were obtained without contrast. Coronal reformatted images were also obtained.This study was performed with techniques to keep radiation doses as low as reasonably achievable (ALARA). Individualized dose reduction techniques using automated exposure control or adjustment of mA and/or kV according to the patient''s size were employed. There is no evidence of intracranial hemorrhage or mass. The ventricular size is within normal limits. There is no evidence of shift of the midline structures. No abnormal extra axial fluid collection is identified. No skull abnormality is seen on the bone window images. There are postoperative changes in the sinuses. IMPRESSION: No acute intracranial abnormality. Reviewed, Interpreted and Dictated by Lee Corcoran III, MD Transcribed by Anika Nicholas Authenticated by Lee Corcoran III, MD on 07/28/2021 02:34:04 PM [facility]
[2021-07-28 14:52] VITALS: BP 123/74; PULSE 78; RESP 20; TEMP 36.6; O2SAT 98
== END 2021-07-28 14:53 | disposition home or self-care (01) ==
LOC: UTC 12:37 → ER 13:21
PROVIDERS: Emergency Provider Emergency Medicine; PCP Physician Assistant
DX: G43.009 Migraine without aura, not intractable, without status migrainosus (principal); F41.8 Other specified anxiety disorders; J44.9 Chronic obstructive pulmonary disease, unspecified; E78.5 Hyperlipidemia, unspecified; I10 Essential (primary) hypertension; M79.7 Fibromyalgia; Z87.891 Personal history of nicotine dependence; Z79.899 Other long term (current) drug therapy
CPT/HCPCS: 70450; 96374; 96375; 99284

== ENCOUNTER → 2021-09-20 07:12 | Outpatient (CLI) | payer BC, SELFPAY ==
--- NOTE | 2021-09-20 07:30 | XR_ITS ---
FINAL REPORT CLINICAL HISTORY: ARTHRITIS,UNABLE TO MAKE FIST COMPARISON: 06/08/2020 FINDINGS: RIGHT HAND Three views were obtained. There is no acute fracture or dislocation. The bones well mineralized. There is no evidence of bony erosion. The joint spaces appear normal. No soft tissue abnormality is identified. IMPRESSION: No acute process. Reviewed, Interpreted and Dictated by Lee Corcoran III, MD Transcribed by Anika Nicholas Authenticated by Lee Corcoran III, MD on 09/20/2021 08:55:44 AM [facility]
[2021-09-20 07:33] LABS: Basophils # 0.3 K/mm3 (0-0.2); Basophils % 3.5 % (0.1-2.0); Eosinophils # 0.2 K/mm3 (0.0-0.4); Eosinophils % 2.1 % (0.1-12.0); Hematocrit 45.7 % (37.0-47.0); Hemoglobin 15.3 g/dL (12.2-16.2); Lymphocytes # 2.8 K/mm3 (0.7-4.5); Lymphocytes % 33.5 % (10-50); Mean Corpuscular HGB Conc 33.4 g/dL (31.8-35.4); Mean Corpuscular Volume 92.8 fl (81-99); Mean Platelet Volume 8.7 fl (7.4-10.4); Monocytes # 0.3 K/mm3 (0.1-1.0); Monocytes % 4.1 % (1.7-9.3); Neutrophils # 4.7 K/mm3 (1.8-7.8); Neutrophils % 56.9 % (37.0-80.0); Platelet Count 219 K/mm3 (142-424); Red Blood Count 4.93 M/mm3 (4.20-5.40); Red Cell Distribution Width 13.2 % (11.5-17.5); White Blood Count 8.3 K/mm3 (4.8-10.8)
[2021-09-20 07:56] LABS: Erythrocyte Sedimentation Rate 10 mm/hr (0-30)
[2021-09-20 08:49] LABS: Hemoglobin A1C 5.5 % (4.0-6.0)
[2021-09-20 09:11] LABS: Chloride 108 mmol/L (98-107); Potassium 4.1 mmoL/L (3.5-5.1); Sodium 140 mmol/L (136-145)
[2021-09-20 09:23] LABS: Alanine Aminotransferase 43 U/L (12-78); Alkaline Phosphatase 98 U/L (38-126); Aspartate Amino Transferase 40 U/L (14-36); Bilirubin,Total 0.5 mg/dl (0.2-1.3); Blood Urea Nitrogen 19 mg/dl (7-17); C-Reactive Protein 8.9 mg/L (0-4); Calcium 9.5 mg/dl (8.4-10.2); Carbon Dioxide 27 mmol/L (22.0-30.0); Creatine Kinase 134 U/L (30-135); Estimated Glomerular Filt Rate 88 ml/min (>60); GFR (African American) 106 ML/MIN (>60); Glucose 164 mg/dl (74-100); Total Protein,Serum 6.7 g/dl (6.3-8.2)
[2021-09-20 09:29] LABS: Free T4 (Free Thyroxine) 1.11 ng/dl (0.78-2.19)
[2021-09-20 09:41] LABS: Anion Gap 9.1 mEq/L (5-15)
[2021-09-20 09:45] LABS: Thyroid Stimulating Hormone 1.33 uIU/mL (0.465-4.68)
[2021-09-20 09:49] LABS: Ferritin 51.6 ng/ml (11.1-264)
[2021-09-20 12:55] LABS: Intact Parathyroid Hormone 43.5 pg/mL (7.5-53.5)
[2021-09-20 13:51] LABS: Vitamin B12 745 pg/mL (239-931)
[2021-09-20 15:42] LABS: Albumin Level 4.3 g/dl (3.5-5.0); Albumin/Globulin Ratio 1.8 (1.1-1.8); Globulin 2.4 g/dL (1.3-3.2)
== END ==
PROVIDERS: PCP Physician Assistant; Visit Provider Internal Medicine Rheumatology
DX: A04.8 Other specified bacterial intestinal infections (principal); K22.4 Dyskinesia of esophagus; K58.9 Irritable bowel syndrome, unspecified; M17.0 Bilateral primary osteoarthritis of knee; M79.7 Fibromyalgia
CPT/HCPCS: 36415; 73130; 80053; 82550; 82607; 82728; 82746; 83036; 83970; 84439; 84443; 85025; 85651; 86140

== ENCOUNTER → 2021-11-09 10:13 | Outpatient (CLI) | payer BC, SELFPAY ==
[2021-11-09 11:00] LABS: Adenovirus,PCR Not Detected (NotDetected); Coronavirus 229E Not Detected (NotDetected); Coronavirus NL63 Not Detected (NotDetected); Coronavirus OC43 Not Detected (NotDetected); Coronovirus HKU1,PCR Not Detected (NotDetected); Human Metapneumovirus Not Detected (NotDetected); Influenza A, PCR Not Detected (NotDetected); Influenza AH1, 2009 Not Detected (NotDetected); Influenza AH1, PCR Not Detected (NotDetected); Influenza AH3,PCR Not Detected (NotDetected); Influenza B, PCR Not Detected (NotDetected); Parainfluenza 1, PCR Not Detected (NotDetected); Parainfluenza 2, PCR Not Detected (NotDetected); Parainfluenza 3, PCR Not Detected (NotDetected); Rhinovirus/Enterovirus Not Detected (NotDetected)
[2021-11-09 11:02] LABS: Bordetella Pertussis Not Detected (NotDetected); Chlamydophila Pneumoniae, PCR Not Detected (NotDetected); Coronavirus 19, PCR Not Detected (NotDetected); Mycoplasma Pneumoniae, PCR Not Detected (NotDetected); Respiratory Syncytial Virus Not Detected (NotDetected)
[2021-11-09 15:37] LABS: Parainfluenza 4, PCR Not Detected (NotDetected)
== END ==
LOC: COVID.OUT 10:13
PROVIDERS: PCP Physician Assistant; Visit Provider Physician Assistant
DX: Z20.822 Contact with and (suspected) exposure to COVID-19 (principal); J32.8 Other chronic sinusitis
CPT/HCPCS: 87581; 87632; 87798; C9803; U0003; U0005

== ENCOUNTER 2021-11-21 18:54 | Emergency (ER) | payer BC, SELFPAY ==
[2021-11-21 19:10] VITALS: BP 161/91; PULSE 89; RESP 22; TEMP 37; O2SAT 97; BMI 25.9
--- NOTE | 2021-11-21 19:53 | HMH.EDUTC ---
[facility] [place] Disposition Clinical Impression: Viral syndrome, Encounter for laboratory testing for COVID-19 virus Disposition: Home, Self-Care Condition on Discharge: Good Instructions: DI for COVID-19 (Suspected or Confirmed ), Preventing the Spread of Coronavirus Discharge Instructions Additional Instructions: *Monitor Temp, Over the counter Motrin or Tylenol as directed/as needed Tylenol every 4 hours and Motrin every 6 hours (as long as your family doctor has told you that you can take it) for fever or pain. and straight to ER if unable to lower temp less than 101.0 after medication given *Warm salt water gargles may help to soothe the throat *Throat Lozenges *Warm fluids like tea with honey may help to soothe the throat *Sleep elevated *Humidifier/Vaporizer Follow up IMMEDIATELY for new or worsening symptoms or no Noticeable improvement over the next 48-72 hours. 911 for difficulty breathing or swallowing You were tested for today for COVID19 your test result should be back in the next 24-48 hours, you may check your results on the [facility] My Health Portal Make sure to take your Vitamins Vit. C Vit D and Zinc if you can take them Referrals: Pia Rooney PA [Primary Care Provider] - As needed Forms: Work/School Release Time of Disposition: 19:56 Medical Decision Making - Lorenzo Inquiry Pt receiving controlled substance: No Lorenzo was queried for this patient: No Vital Signs: 11/21/21 19:10 Temperature 98.6 F Temperature Source Oral Pulse Rate [Left Brachial] 89 Respiratory Rate 22 Blood Pressure [Left Arm] 161/91 H Blood Pressure Mean [Left Arm] 114 Blood Pressure Source [Left Arm] Automatic Cuff Blood Pressure Position [Left Arm] Sitting 02 Sat by Pulse Oximetry 97 Oxygen Delivery Method Room Air Orders (Tests/Meds): ORDERS Category Date Time Status Covid-19 Nasal PCR ([facility]) Routine Lab 11/21/21 19:06 Received [facility] [place] HPI - General Stated complaint: covid test,exposed asuncion,SOA,cough Time Seen by Provider: 11/21/21 19:53 Mode of Arrival: Ambulatory Source of Information: Patient Limitations: No Limitations Description of Symptoms (Recalled from Triage Doc. by RN): PATIENT REPORTS A POSITIVE AT HOME COVID TEST. C/O CONGESTION, COUGH, AND HEADACHE X 2 DAYS HEENT Symptoms (Recalled from RN notes): Yes Resp Symptoms (Recalled from RN notes): Yes Skin Symptoms (Recalled from RN notes): No MS Symptoms (Recalled from RN notes): No Functional Status (Recalled from RN notes): WNL - History of Present Illness Provider Complaint: Patient state that she took an at home COVID test earlier and it was positive States that she is currently on antibiotics for sinus infection but started getting stopped up again and having headache and cough so after she took the at home test and it was positive she came in to get a test here - Related Data Home Medications Medication Instructions Recorded Confirmed Ergocalciferol (Vitamin D2) 50,000 unit PO QWEEK 08/22/20 11/15/21 [Drisdol] Previous Rx's Medication Instructions Recorded levalbuterol HCl 0.31 mg/3 mL 0.31 mg INHALATION Q8H PRN #75 ml 07/26/20 solution for nebulization atorvastatin 10 mg tablet 10 mg PO QHS 90 Days #90 tab 02/14/21 budesonide-formoterol HFA 160 2 puff INHALATION BID 90 Days 03/22/21 mcg-4.5 mcg/actuation aerosol #10.2 g inhaler celecoxib 200 mg capsule See Rx Instructions .ROUTE 05/31/21 .COMPLEX #30 cap diclofenac sodium 75 mg See Rx Instructions .ROUTE 08/30/21 tablet,delayed release .COMPLEX #60 tab lisinopril 10 mg tablet See Rx Instructions .ROUTE 10/27/21 .COMPLEX #30 tab bxmxwxeqasmsxan-mwlpkgxytqwachl-HV 5 ml PO Q4-6H PRN #180 ml 11/15/21 2 mg-30 mg-10 mg/5 mL oral syrup cefdinir 300 mg capsule 300 mg PO Q12H 10 Days #20 cap 11/15/21 prednisone 20 mg tablet 20 mg PO BID #10 tab 11/15/21 Allergies Allergy/AdvReac Type Severity Reaction Status Date / Time amoxicillin [From AUGMENTIN] Allergy Int
[2021-11-21 19:54] VITALS: BP 161/91; PULSE 89; RESP 22; TEMP 37; O2SAT 97
== END 2021-11-21 20:00 | disposition home or self-care (01) ==
PROVIDERS: Emergency Provider Nurse Practitioner; PCP Physician Assistant
DX: U07.1 COVID-19 (principal)
CPT/HCPCS: 99212; C9803; G0463; U0003; U0005

== ENCOUNTER → 2022-03-22 08:26 | Outpatient (CLI) | payer BC, SELFPAY ==
--- NOTE | 2022-03-22 08:26 | MM_ITS ---
PROCEDURE INFORMATION: Exam: MG Bilateral Screening 3D Mammography Exam date and time: 03/22/2022 8:20 AM Age: 52 years old Clinical indication: Screening examination TECHNIQUE: Imaging protocol: Bilateral Screening tomosynthesis and 2D mammography including computer-aided detection (CAD) when performed. COMPARISON: 1. MG MM DIG SCREENING MAMM BI W/CAD 04/29/2020 8:39 AM 2. MG DMSB DIG MAMM-SCREEN KAREN 10/21/2015 9:48 AM FINDINGS: MAMMOGRAPHY: Breast composition: There are scattered areas of fibroglandular density. Mass: None. Architectural distortion: None. Calcifications: No suspicious calcifications. Asymmetric density: None. Skin thickening: None. Axillary adenopathy: None. IMPRESSION: No mammographic evidence of malignancy. Annual screening is recommended unless otherwise clinically indicated. ASSESSMENT: BI-RADS Category 1: Negative
== END ==
PROVIDERS: PCP Physician Assistant; Visit Provider Physician Assistant
DX: Z12.31 Encounter for screening mammogram for malignant neoplasm of breast (principal)
CPT/HCPCS: 77063; 77067

== ENCOUNTER → 2022-05-16 11:00 | Outpatient (CLI) | payer BC, SELFPAY ==
[2022-05-16 16:02] LABS: Alanine Aminotransferase 36 U/L (12-78); Albumin Level 4.8 g/dl (3.5-5.0); Albumin/Globulin Ratio 1.7 (1.1-1.8); Alkaline Phosphatase 112 U/L (38-126); Anion Gap 12.5 mEq/L (5-15); Aspartate Amino Transferase 41 U/L (14-36); Bilirubin,Total 0.7 mg/dl (0.2-1.3); Blood Urea Nitrogen 23 mg/dl (7-17); Calcium 9.7 mg/dl (8.4-10.2); Carbon Dioxide 25 mmol/L (22.0-30.0); Chloride 109 mmol/L (98-107); Cholesterol 273 mg/dl (140-200); Estimated Glomerular Filt Rate 87 ml/min (>60); GFR (African American) 106 ML/MIN (>60); Globulin 2.8 g/dL (1.3-3.2); Glucose 103 mg/dl (74-100); HDL Cholesterol 34 mg/dl (40-60); Potassium 4.5 mmoL/L (3.5-5.1); Sodium 142 mmol/L (136-145); Total Protein,Serum 7.6 g/dl (6.3-8.2); Triglycerides 189 mg/dl (30-150); VLDL Cholesterol 38 mg/dL (0-40)
[2022-05-16 16:13] LABS: Direct LDL Cholesterol 179.71 mg/dL (100-129)
[2022-05-16 16:18] LABS: 25-OH Vitamin D, Total 22.3 ng/mL (30-100)
[2022-05-16 16:33] LABS: Thyroid Stimulating Hormone 1.13 uIU/mL (0.465-4.68)
[2022-05-16 16:52] LABS: Vitamin B12 750 pg/mL (239-931)
[2022-05-16 17:08] LABS: Basophils # 0.1 K/mm3 (0-0.2); Basophils % 1.2 % (0.1-2.0); Eosinophils # 0.2 K/mm3 (0.0-0.4); Eosinophils % 1.7 % (0.1-12.0); Hematocrit 47.4 % (37.0-47.0); Hemoglobin 15.9 g/dL (12.2-16.2); Lymphocytes # 4.1 K/mm3 (0.7-4.5); Lymphocytes % 39.1 % (10-50); Mean Corpuscular HGB Conc 33.5 g/dL (31.8-35.4); Mean Corpuscular Hemoglobin 30.8 pg (27.0-31.2); Mean Platelet Volume 9.6 fl (7.4-10.4); Monocytes # 0.4 K/mm3 (0.1-1.0); Neutrophils # 5.7 K/mm3 (1.8-7.8); Neutrophils % 53.9 % (37.0-80.0); Platelet Count 245 K/mm3 (142-424); Red Blood Count 5.15 M/mm3 (4.20-5.40); Red Cell Distribution Width 12.9 % (11.5-17.5); White Blood Count 10.5 K/mm3 (4.8-10.8)
== END ==
LOC: LAB.DROPOF 15:33
PROVIDERS: PCP Physician Assistant; Visit Provider Physician Assistant
DX: Z00.00 Encounter for general adult medical examination without abnormal findings (principal); E55.9 Vitamin D deficiency, unspecified
CPT/HCPCS: 80053; 80061; 82306; 82607; 84443; 85025

== ENCOUNTER 2022-05-20 14:02 | Emergency (ER) | payer BC, SELFPAY ==
--- NOTE | 2022-05-20 14:35 | EXP.UTC ---
Discharge Plan Disposition Patient Disposition: Home, Self-Care Condition: Good Prescriptions Prescriptions: New ketorolac 10 mg Tablet 10 mg PO Q6H PRN (Reason: pain.) Qty: 8 0RF cyclobenzaprine 10 mg tablet 10 mg PO TID PRN (Reason: muscle spasm) Qty: 20 0RF No Action levalbuterol HCl 0.31 mg/3 mL solution for nebulization 0.31 mg INHALATION Q8H PRN (Reason: shortness of breath or wheezing) Qty: 75 12RF promethazine 12.5 mg tablet 12.5 mg PO TID PRN (Reason: nausea and vomiting) Qty: 10 0RF lisinopril 10 mg tablet See Rx Instructions .ROUTE .COMPLEX Qty: 30 3RF Dose Instruction: Take 1 tablet by mouth once daily Rx Instructions: Take 1 tablet by mouth once daily ergocalciferol (vitamin D2) 1,250 mcg (50,000 unit) capsule 1,250 mcg PO QWEEK Qty: 14 3RF celecoxib 200 mg capsule See Rx Instructions .ROUTE .COMPLEX Rx Instructions: Take 1 capsule by mouth once daily atorvastatin [Lipitor] 20 mg tablet 20 mg PO DAILY diclofenac sodium 75 mg tablet,delayed release (DR/EC) See Rx Instructions .ROUTE .COMPLEX Rx Instructions: Take 1 tablet by mouth twice daily duloxetine [Cymbalta] 30 mg capsule,delayed release(DR/EC) 30 mg PO DAILY pregabalin 75 mg capsule 75 mg PO BID budesonide-formoterol [Symbicort] 160-4.5 mcg/actuation HFA aerosol inhaler 2 puff INHALATION BID cholecalciferol (vitamin D3) 50 mcg (2,000 unit) capsule 50 mcg PO DAILY Referrals Follow up/Referrals: Pia Rooney PA [Primary Care Provider] - See instructions Activity Restrictions/Add. Instructions Additional Instructions/Restrictions: Follow-up with your primary care doctor if you do not improve in a few days. Return to the emergency department if your condition worsens in any way. Avoid stooping or heavy lifting. Clinical Impressions Clinical Impression: Musculoskeletal chest pain Stand Alone Forms Stand Alone Forms: Work/School Release Instructions Patient Instructions: DI for Atypical Chest Pain Discharge ED Provider: Mitch Grimes [facility] General Chief complaint: Back Pain/Injury Stated complaint: left side pain, no accident Time Seen by Provider: 05/20/22 14:35 History of Present Illness Provider Complaint: She is here with back pain and chest pain intermittently for the past 1 week. She denies any injury. Related Data Home Medications Medication Instructions Recorded Confirmed atorvastatin 20 mg tablet (Lipitor) 20 mg PO DAILY . 05/20/22 06/01/22 budesonide-formoterol HFA 160 2 puff inhalation BID . 05/20/22 06/01/22 mcg-4.5 mcg/actuation aerosol inhaler (Symbicort) celecoxib 200 mg capsule See Rx Instructions .Route 05/20/22 06/01/22 .COMPLEX . cholecalciferol (vitamin D3) 50 50 mcg PO DAILY . 05/20/22 06/01/22 mcg (2,000 unit) capsule diclofenac sodium 75 mg See Rx Instructions .Route 05/20/22 06/01/22 tablet,delayed release .COMPLEX . duloxetine 30 mg capsule,delayed 30 mg PO DAILY . 05/20/22 06/01/22 release (Cymbalta) pregabalin 75 mg capsule 75 mg PO BID . 05/20/22 06/01/22 Previous Rx's Medication Instructions Recorded levalbuterol HCl 0.31 mg/3 mL 0.31 mg (3 mL) inhalation Q8H PRN 07/26/20 solution for nebulization shortness of breath or wheezing #75 mL lisinopril 10 mg tablet See Rx Instructions .Route 12/08/21 .COMPLEX #30 tabs promethazine 12.5 mg tablet 12.5 mg PO TID PRN nausea and 04/03/22 vomiting #10 tabs ergocalciferol (vitamin D2) 1,250 1,250 mcg PO QWEEK Supplement #14 05/18/22 mcg (50,000 unit) capsule caps cyclobenzaprine 10 mg tablet 10 mg PO TID PRN muscle spasm #20 05/20/22 tabs ketorolac 10 mg tablet 10 mg PO Q6H PRN pain. #8 tabs 05/20/22 Allergies Allergy/AdvReac Type Severity Reaction Status Date / Time amoxicillin [From AUGMENTIN] Allergy Intermediate I-ITCHING Verified 06/01/22 11:19 clavulanic acid Allergy Intermediate I-ITCHING Verifi
[2022-05-20 14:40] VITALS: BP 126/80; PULSE 80; RESP 20; TEMP 36.6; O2SAT 96; BMI 26.6
[2022-05-20 15:07] LABS: Apearance,Urine Clear (Clear); Color,Urine Yellow (Yellow); Protein,Urine Negative (Negative)
[2022-05-20 15:08] LABS: Bilirubin,Urine Negative (Negative); Blood, Urine Trace (Negative); Glucose,Urine (UA) Negative (Negative); Ketones,Urine Negative (Negative); UTC Leukocyte Esterase,Urine Negative (Negative); UTC Nitrate,Urine Negative (Negative); Urobilinogen,Urine 0.2 EU/dl (0.2)
[2022-05-20 15:31] VITALS: BP 130/77; PULSE 69; RESP 17; TEMP 36.3; O2SAT 98; BMI 28.3
--- NOTE | 2022-05-20 15:47 | PC.NURSE ---
DR. MARTINEZ AT BEDSIDE
--- NOTE | 2022-05-20 15:52 | XR_ITS ---
PROCEDURE INFORMATION: Exam: XR Chest Exam date and time: 05/20/2022 3:55 PM Age: 52 years old Clinical indication: Pain; Pleuordynia; Additional info: Pleuritic left-sided chest pain TECHNIQUE: Imaging protocol: Radiologic exam of the chest. Views: 2 views. COMPARISON: CR XR CHEST 2V 06/23/2020 9:09 AM FINDINGS: Lungs: Unremarkable. No consolidation. Pleural spaces: Unremarkable. No pleural effusion. No pneumothorax. Heart/Mediastinum: Unremarkable. No cardiomegaly. Bones/joints: Unremarkable. IMPRESSION: No acute findings.
--- NOTE | 2022-05-20 15:53 | HMH.EDGENADL ---
Discharge Plan Disposition Patient Disposition: Home, Self-Care Condition: Good Prescriptions Prescriptions: New ketorolac 10 mg Tablet 10 mg PO Q6H PRN (Reason: pain.) Qty: 8 0RF cyclobenzaprine 10 mg tablet 10 mg PO TID PRN (Reason: muscle spasm) Qty: 20 0RF No Action levalbuterol HCl 0.31 mg/3 mL solution for nebulization 0.31 mg INHALATION Q8H PRN (Reason: shortness of breath or wheezing) Qty: 75 12RF promethazine 12.5 mg tablet 12.5 mg PO TID PRN (Reason: nausea and vomiting) Qty: 10 0RF lisinopril 10 mg tablet See Rx Instructions .ROUTE .COMPLEX Qty: 30 3RF Dose Instruction: Take 1 tablet by mouth once daily Rx Instructions: Take 1 tablet by mouth once daily ergocalciferol (vitamin D2) 1,250 mcg (50,000 unit) capsule 1,250 mcg PO QWEEK Qty: 14 3RF celecoxib 200 mg capsule See Rx Instructions .ROUTE .COMPLEX Rx Instructions: Take 1 capsule by mouth once daily atorvastatin [Lipitor] 20 mg tablet 20 mg PO DAILY diclofenac sodium 75 mg tablet,delayed release (DR/EC) See Rx Instructions .ROUTE .COMPLEX Rx Instructions: Take 1 tablet by mouth twice daily duloxetine [Cymbalta] 30 mg capsule,delayed release(DR/EC) 30 mg PO DAILY pregabalin 75 mg capsule 75 mg PO BID budesonide-formoterol [Symbicort] 160-4.5 mcg/actuation HFA aerosol inhaler 2 puff INHALATION BID cholecalciferol (vitamin D3) 50 mcg (2,000 unit) capsule 50 mcg PO DAILY Referrals Follow up/Referrals: Pia Rooney PA [Primary Care Provider] - See instructions Activity Restrictions/Add. Instructions Additional Instructions/Restrictions: Follow-up with your primary care doctor if you do not improve in a few days. Return to the emergency department if your condition worsens in any way. Avoid stooping or heavy lifting. Clinical Impressions Clinical Impression: Musculoskeletal chest pain Stand Alone Forms Stand Alone Forms: Work/School Release Instructions Patient Instructions: DI for Atypical Chest Pain Discharge ED Provider: Mitch Grimes Adult [facility] General Chief complaint: Back Pain/Injury Stated complaint: left side pain, no accident Time Seen by Provider: 05/20/22 14:35 Mode of Arrival: Ambulatory Limitations: No Limitations Description of Symptoms (Recalled from ER Triage Doc. by RN): PT REPORTS LEFT BACK/FLANK PAIN THAT RADIATES TO ABDOMEN. PAIN STARTED YESTERDAY, REPORTS PAIN IS CRAMPING OR LIKE A SPASM. SHARP PAIN WITH DEEP INSPIRATION. PT DENIES ANY URINARY OR BOWEL ISSUES. History of Present Illness HPI narrative: The patient presents to the emergency department complaining of upper left-sided back pain which radiates to the front upper abdomen. This began yesterday. The patient denies any trauma. The pain is pleuritic in nature. It is also exacerbated by movement and palpation. The patient denies any unusual bowel habits. She denies nausea or vomiting. She denies fever. She has a history of degenerative disc disease. Related Data Home Medications Medication Instructions Recorded Confirmed atorvastatin 20 mg tablet (Lipitor) 20 mg PO DAILY . 05/20/22 05/20/22 budesonide-formoterol HFA 160 2 puff inhalation BID . 05/20/22 05/20/22 mcg-4.5 mcg/actuation aerosol inhaler (Symbicort) celecoxib 200 mg capsule See Rx Instructions .Route 05/20/22 05/20/22 .COMPLEX . cholecalciferol (vitamin D3) 50 50 mcg PO DAILY . 05/20/22 05/20/22 mcg (2,000 unit) capsule diclofenac sodium 75 mg See Rx Instructions .Route 05/20/22 05/20/22 tablet,delayed release .COMPLEX . duloxetine 30 mg capsule,delayed 30 mg PO DAILY . 05/20/22 05/20/22 release (Cymbalta) pregabalin 75 mg capsule 75 mg PO BID . 05/20/22 05/20/22 Previous Rx's Medication Instructions Recorded levalbuterol HCl 0.31 mg/3 mL 0.31 mg (3 mL) inhalation Q8H PRN 07/26/20 solution for nebulization shortness of breath or wheezing #75 mL
[2022-05-20 15:56] LABS: Microscopic, Urine URINE MICROSCOPIC (MICROSCOPIC)
[2022-05-20 15:59] LABS: Appearance,Urine CLEAR (Clear); Bilirubin,Urine Negative (Negative); Blood, Urine TRACE-I (Negative); Color,Urine YELLOW (Yellow); Glucose,Urine (UA) Negative (Negative); Ketones,Urine Negative (Negative); Leukocyte Esterase,Urine Negative (Negative); Nitrate,Urine Negative (Negative); Protein,Urine Negative (Negative); Specific Gravity, Urine 1.015 (1.005-1.030); Urobilinogen,Urine 0.2 EU/dl (0.2)
--- NOTE | 2022-05-20 16:05 | PC.NURSE ---
PT TO XR AT THIS TIME
--- NOTE | 2022-05-20 16:07 | PC.NURSE ---
PT RETURNED FROM XR
--- NOTE | 2022-05-20 16:36 | PC.NURSE ---
ROUNDED ON PT AT THIS TIME PAIN SLIGHTLY IMPROVED RATES 5/10. CONTINUES TO COMPLAIN OF PAIN WITH INSPIRATION. NO FURTHER NEEDS AT THIS TIME. NOTIFIED
--- NOTE | 2022-05-20 16:37 | PC.NURSE ---
DR MARTINEZ AT BEDSIDE TO REEVALUATE PT
[2022-05-20 16:50] VITALS: BP 130/85; PULSE 74; RESP 16; TEMP 36.4; O2SAT 98
== END 2022-05-20 16:50 | disposition home or self-care (01) ==
LOC: UTC 14:06 → ER 15:31
PROVIDERS: Nurse Practitioner Family; Emergency Provider Emergency Medicine; PCP Physician Assistant
DX: R07.89 Other chest pain (principal); F41.9 Anxiety disorder, unspecified; I50.9 Heart failure, unspecified; J44.9 Chronic obstructive pulmonary disease, unspecified; K21.9 Gastro-esophageal reflux disease without esophagitis; E78.5 Hyperlipidemia, unspecified; I11.0 Hypertensive heart disease with heart failure; E55.9 Vitamin D deficiency, unspecified; Z87.891 Personal history of nicotine dependence
CPT/HCPCS: 71046; 81001; 81003; 96372; 99284

== ENCOUNTER → 2022-05-31 08:54 | Outpatient (CLI) | payer BC, SELFPAY ==
--- NOTE | 2022-05-31 08:54 | XR_ITS ---
FINAL REPORT TECHNIQUE: Bone densitometry calculations of the lumbar spine and left hip were obtained. CLINICAL HISTORY: . post menopausal FINDINGS: DEXA BONE DENSITY AXIAL SKELETON Using L1-4, the bone mineral density of the spine is 1.071 g/cm2, corresponding to T-score of 0.2. Using the right hip, the bone mineral density of the femoral neck is 0.878 g/cm2, corresponding to a T-score of -0.5. Using the left hip, the bone mineral density of the femoral neck is 0.834 g/cm2, corresponding to a T-score of -0.9. NOTE: T-score: Standard deviation compared with peak bone mass of young adult mean. *Following the recommendations of the International Society of Bone densitometry, classification of hip BMD is based on the lower of two T-scores; total hip or femoral neck. IMPRESSION: Normal bone mineral density of the lumbar spine and right hip and lower limits of normal for the left hip. FRAX not reported because: All T-scores for spine total, hip total, femoral neck at or above -1.0. Reviewed, Interpreted and Dictated by Raman Waldron MD Transcribed by Belkis Craven Authenticated and [facility]
--- NOTE | 2022-05-31 09:26 | CA_ITS ---
FINAL REPORT TECHNIQUE: Color Doppler, duplex Doppler and starks scale sonography of the bilateral neck arterial vasculature was performed. Velocities were measured in the carotid arteries. Stenosis evaluation based on the validated velocity criteria. CLINICAL HISTORY: retinopathy, increased eye pressures, HTN, HLD FINDINGS: The peak systolic velocity of the right common carotid artery is 78 cm/s. The peak systolic velocity of the right internal carotid artery is 91 cm/s and end diastolic velocity 37 cm/s. The ICA/CCA ratio is 1.2. A minimal amount of plaque is present. The right external carotid artery is patent. The right vertebral artery is patent with antegrade flow. The peak systolic velocity of the left common carotid artery is 75 cm/s. The peak systolic velocity of the left internal carotid artery is 94 cm/s and end diastolic velocity 39 cm/s. The ICA/CCA ratio is 1.3. A minimal amount of plaque is present. The left external carotid artery is patent.The left vertebral artery is patent with antegrade flow. IMPRESSION: Less than 50% bilateral carotid stenosis. Bilateral patent vertebral arteries with antegrade flow. If indicated, CTA or MRA could further evaluate. Reviewed, Interpreted and Dictated by Raman Waldron MD Transcribed by Belkis Craven Authenticated and [facility]
== END ==
LOC: RAD 08:54
PROVIDERS: PCP Physician Assistant; Visit Provider Physician Assistant
DX: Z78.0 Asymptomatic menopausal state (principal); H35.00 Unspecified background retinopathy; N95.9 Unspecified menopausal and perimenopausal disorder; I10 Essential (primary) hypertension; E78.5 Hyperlipidemia, unspecified
CPT/HCPCS: 77080; 93880

== ENCOUNTER → 2022-06-01 09:22 | Outpatient (CLI) | payer BC, SELFPAY ==
--- NOTE | 2022-06-01 09:29 | XR_ITS ---
FINAL REPORT CLINICAL HISTORY: knee pain FINDINGS: RIGHT KNEE 3 views of the right knee were obtained. There is no acute fracture or dislocation. Visualized joint spaces are normally aligned. There is moderate narrowing of the medial joint space. There is moderate osteophyte formation along the medial joint margin. There are small osteophytes along the undersurface of the patella. Soft tissues are unremarkable. IMPRESSION: Moderate changes of osteoarthritis. Reviewed, Interpreted and Dictated by Raman Waldron MD Transcribed by Belkis Craven Authenticated and [facility]
== END ==
LOC: RAD 09:23
PROVIDERS: PCP Physician Assistant; Visit Provider Orthopaedic Surgery
DX: M25.561 Pain in right knee (principal)
CPT/HCPCS: 73562

== ENCOUNTER → 2022-06-13 13:34 | Outpatient (CLI) | payer BC, SELFPAY ==
--- NOTE | 2022-06-13 13:34 | CT_ITS ---
FINAL REPORT TECHNIQUE: Thin section axial CT with IV contrast supplemented with multiplanar reconstruction under CT angiogram protocol. This study was performed with techniques to keep radiation doses as low as reasonably achievable (ALARA). Individualized dose reduction techniques using automated exposure control or adjustment of mA and/or kV according to the patient''s size were employed. NASCET criteria was utilized during interpretation. CLINICAL HISTORY: Abnormal Carotid Duplex, Rt sided neck pain @ jugular region just distal to the gonion of the mandible. Pt c/o pressure in bilat eyes w hypertension and high cholesterol. Former smoker. FINDINGS: Aortic arch: Arch shows no significant narrowing. Great vessel origins are widely patent. Right carotid: No significant stenosis is seen of the cervical common or internal carotid artery. Left carotid: No significant stenosis is seen of the cervical common or internal carotid artery. Vertebral: Left vertebral artery is dominant. There is a hypoplastic right vertebral artery which is patent. No significant stenosis is present. There is an 8 mm right thyroid nodule. IMPRESSION: No evidence of significant stenosis. Right thyroid nodule. Consider follow-up ultrasound. Reviewed, Interpreted and Dictated by Lee Corcoran III, MD Transcribed by Anika Nicholas Authenticated and [facility]
== END ==
LOC: RAD 13:34
PROVIDERS: PCP Physician Assistant; Visit Provider Physician Assistant
DX: I65.23 Occlusion and stenosis of bilateral carotid arteries (principal)
CPT/HCPCS: 70498; Q9967

== ENCOUNTER 2022-07-15 10:06 | Emergency (ER) | payer BC, SELFPAY ==
--- NOTE | 2022-07-15 10:06 | ECG_ITS ---
APPROVED REPORT Exam: Resting ECG HR:77 bpm ECG Measurements Heart Rate 77 AXES AR 139 P 30 QRSd 93 QRS 66 QT 396 T 47 QTc 428 Conclusion SINUS RHYTHM POSSIBLE RIGHT VENTRICULAR CONDUCTION DELAY [RSR (QR) IN V1/V2] BORDERLINE ECG UNCONFIRMED REPORT Electronically signed by : Mata Cole MD 07/17/2022 03:09:04
[2022-07-15 10:07] VITALS: BP 126/81; PULSE 78; RESP 18; TEMP 36.1; O2SAT 96; BMI 26.1
--- NOTE | 2022-07-15 10:12 | HMH.EDCP ---
Discharge Plan Disposition Patient Disposition: Home, Self-Care Condition: Fair Prescriptions Prescriptions: New cefpodoxime 200 mg tablet 200 mg PO BID 5 Days Qty: 10 0RF Rx Instructions: must administer with a meal/food azithromycin 250 mg tablet See Rx Instructions .ROUTE .COMPLEX Qty: 6 0RF Rx Instructions: For 250 mg dose pack: take 500 mg today (day 1), then 250 mg for 4 days (days 2-5) No Action levalbuterol HCl 0.31 mg/3 mL solution for nebulization 0.31 mg INHALATION Q8H PRN (Reason: shortness of breath or wheezing) Qty: 75 12RF Ultra CoQ10 75 mg capsule 75 mg PO DAILY omega 4-niw-rnm-fish oil [Fish Oil] 300-1,000 mg capsule 1 cap PO BID ergocalciferol (vitamin D2) 1,250 mcg (50,000 unit) capsule 1,250 mcg PO QWEEK Qty: 14 3RF celecoxib 200 mg capsule See Rx Instructions .ROUTE .COMPLEX Rx Instructions: Take 1 capsule by mouth once daily atorvastatin [Lipitor] 20 mg tablet 20 mg PO DAILY duloxetine [Cymbalta] 30 mg capsule,delayed release(DR/EC) 30 mg PO DAILY pregabalin 75 mg capsule 75 mg PO BID budesonide-formoterol [Symbicort] 160-4.5 mcg/actuation HFA aerosol inhaler 2 puff INHALATION BID cholecalciferol (vitamin D3) 50 mcg (2,000 unit) capsule 50 mcg PO DAILY cyclobenzaprine 10 mg tablet 10 mg PO TID PRN (Reason: muscle spasm) Qty: 20 0RF lisinopril 10 mg tablet See Rx Instructions .ROUTE .COMPLEX Rx Instructions: Take 1 tablet by mouth once daily diclofenac sodium 75 mg tablet,delayed release (DR/EC) See Rx Instructions .ROUTE .COMPLEX Rx Instructions: Take 1 tablet by mouth twice daily estradiol 0.06 mg/24 hr patch weekly 1 patch transdermal WEEKLY Referrals Follow up/Referrals: Gene Herring MD [Primary Care Provider] - See instructions Clinical Impressions Clinical Impression: Pneumonia Instructions Patient Instructions: DI for Pneumonia -- Adult Discharge ED Provider: Darin Padilla Chest Pain HPI General Chief Complaint: Chest Pain Stated Complaint: chest pain Time Seen by Provider: 07/15/22 10:12 Mode of Arrival: Ambulatory Source of Information: Patient Limitations: No Limitations Description of Symptoms (Recalled from ER Triage Doc. by RN): Pt presents to ED c/o chest pain that started at 0915. pt reports that pain is in the center of her chest and does not radiate. pt reports nausea. History of Present Illness HPI narrative: Patient is a 52-year-old female with a past medical history of prediabetes, JENNIFFER, fibromyalgia, hyperlipidemia, hypertension, COPD, CHF who presents with concern for chest pain. She says that she had chest pain that started earlier this morning. She says that its on the center of her chest. She says that she has some couple other places but they feel like they are not connected with this pain. She has been a little nauseous during this time but denies any diaphoresis. She says that she has a history of esophagitis and has needed to be dilated in the past. She states this feels somewhat similar to that. She denies any fever or chills but says that she generally feels unwell. Denies any sputum production. Denies any lower extremity swelling. Related Data Home Medications Medication Instructions Recorded Confirmed atorvastatin 20 mg tablet (Lipitor) 20 mg PO DAILY . 05/20/22 06/27/22 budesonide-formoterol HFA 160 2 puff inhalation BID . 05/20/22 06/27/22 mcg-4.5 mcg/actuation aerosol inhaler (Symbicort) celecoxib 200 mg capsule See Rx Instructions .Route 05/20/22 06/27/22 .COMPLEX . cholecalciferol (vitamin D3) 50 50 mcg PO DAILY . 05/20/22 06/27/22 mcg (2,000 unit) capsule duloxetine 30 mg capsule,delayed 30 mg PO DAILY . 05/20/22 06/27/22 release (Cymbalta) pregabalin 75 mg capsule 75 mg PO BID . 05/20/22 06/27/22 coenzyme Q10 75 mg capsule (Ultra 75 mg PO DAILY . 06/27/22 06/27/22 CoQ10)
[2022-07-15 11:00] VITALS: BP 112/79; PULSE 68; RESP 20; O2SAT 98
[2022-07-15 11:11] LABS: Microscopic, Urine URINE MICROSCOPIC (MICROSCOPIC)
--- NOTE | 2022-07-15 11:12 | XR_ITS ---
PROCEDURE INFORMATION: Exam: XR Chest Exam date and time: 07/15/2022 11:59 AM Age: 52 years old Clinical indication: Pain; Chest pressure; Additional info: Chesty pain TECHNIQUE: Imaging protocol: Radiologic exam of the chest. Views: 1 view. COMPARISON: CR XR CHEST 2V 05/20/2022 3:55 PM FINDINGS: Lungs: See Soft tissues finding. Pleural spaces: Unremarkable. No pleural effusion. No pneumothorax. Heart/Mediastinum: Unremarkable. No cardiomegaly. Bones/joints: Unremarkable for age. Soft tissues: Vague indistinct ground-glass opacity projecting below the right hilum inconclusive for small infiltrate and may be secondary to breast attenuation artifact. Remaining lung velasquez are clear. IMPRESSION: Findings inconclusive for patchy ground-glass infiltrate right lower lobe. Follow-up PA and lateral chest recommended for clarification.
--- NOTE | 2022-07-15 11:15 | PC.NURSE ---
1030 AM ROUNDED ON PATIENT, ASSISTED TO RESTROOM, UA OBTAINED AND SENT TO LAB
[2022-07-15 11:21] LABS: Appearance,Urine CLOUDY (Clear); Blood, Urine Negative (Negative); Color,Urine YELLOW (Yellow); Glucose,Urine (UA) Negative (Negative); Ketones,Urine TRACE (Negative); Leukocyte Esterase,Urine Negative (Negative); Nitrate,Urine Negative (Negative); PH,Urine 5.5 (5.0-8.5); Protein,Urine Negative (Negative); Specific Gravity, Urine >= 1.030 (1.005-1.030); Urobilinogen,Urine 0.2 EU/dl (0.2)
[2022-07-15 11:25] LABS: Bilirubin,Urine 2+ (Negative)
[2022-07-15 11:25] LABS: Chloride 111 mmol/L (98-107)
[2022-07-15 11:26] LABS: Basophils # 0.1 K/mm3 (0-0.2); Basophils % 1.1 % (0.1-2.0); Eosinophils # 0.2 K/mm3 (0.0-0.4); Eosinophils % 1.5 % (0.1-12.0); Hematocrit 45.8 % (37.0-47.0); Hemoglobin 14.8 g/dL (12.2-16.2); Lymphocytes # 3.7 K/mm3 (0.7-4.5); Mean Corpuscular HGB Conc 32.3 g/dL (31.8-35.4); Mean Corpuscular Hemoglobin 29.9 pg (27.0-31.2); Mean Corpuscular Volume 92.4 fl (81-99); Mean Platelet Volume 9.5 fl (7.4-10.4); Monocytes # 0.6 K/mm3 (0.1-1.0); Monocytes % 5.1 % (1.7-9.3); Neutrophils # 6.7 K/mm3 (1.8-7.8); Neutrophils % 59.3 % (37.0-80.0); Platelet Count 234 K/mm3 (142-424); Potassium 4.2 mmoL/L (3.5-5.1); Red Blood Count 4.96 M/mm3 (4.20-5.40); Red Cell Distribution Width 13.2 % (11.5-17.5); Sodium 144 mmol/L (136-145); White Blood Count 11.2 K/mm3 (4.8-10.8)
[2022-07-15 11:28] LABS: Blood Urea Nitrogen 22 mg/dl (7-17); Creatinine Clearance Estimated 103 mL/min (50-200); Estimated Glomerular Filt Rate 87 ml/min (>60); GFR (African American) 106 ML/MIN (>60)
[2022-07-15 11:29] LABS: Anion Gap 13.2 mEq/L (5-15); Calcium 9.1 mg/dl (8.4-10.2); Carbon Dioxide 24 mmol/L (22.0-30.0); Glucose 117 mg/dl (74-100)
[2022-07-15 11:30] VITALS: BP 110/76; PULSE 68; RESP 16; O2SAT 98
[2022-07-15 11:33] LABS: Lipase 124 U/L (23-300)
[2022-07-15 11:37] LABS: Bacteria,Urine Trace /lpf; WBC,Urine Occasional #/hpf (0-3)
[2022-07-15 11:43] LABS: Troponin I < 0.01 ng/ml (0.00-0.034)
[2022-07-15 12:00] VITALS: BP 126/75; PULSE 62; RESP 16; O2SAT 98
[2022-07-15 12:31] VITALS: BP 137/86; PULSE 61; RESP 18; O2SAT 97
[2022-07-15 14:05] VITALS: BP 146/95; PULSE 68; RESP 18; TEMP 36.8; O2SAT 97
[2022-07-15 14:14] LABS: Troponin I < 0.01 ng/ml (0.00-0.034)
== END 2022-07-15 14:08 | disposition home or self-care (01) ==
PROVIDERS: Emergency Provider Student in an Organized Health Care Education/Training Program; PCP Emergency Medicine
DX: R07.9 Chest pain, unspecified (principal); J18.9 Pneumonia, unspecified organism; I11.0 Hypertensive heart disease with heart failure; I50.9 Heart failure, unspecified
CPT/HCPCS: 36415; 71045; 80048; 81001; 83690; 84484; 85025; 93005; 96360; 99285

== ENCOUNTER → 2022-07-31 09:43 | Outpatient (CLI) | payer BC, SELFPAY ==
--- NOTE | 2022-07-31 09:45 | XR_ITS ---
FINAL REPORT CLINICAL HISTORY: F/U pneumonia COMPARISON: 07/15/2022 FINDINGS: Two views of the chest were obtained. The heart size and pulmonary vascularity are within normal limits. The mediastinum is normal. No acute pulmonary abnormality is identified. There is no pneumothorax. The bony thorax is intact. IMPRESSION: No active cardiopulmonary disease. Reviewed, Interpreted and Dictated by Lee Corcoran III, MD Transcribed by Anika Nicholas Authenticated and . [facility]
== END ==
LOC: RAD 09:43
PROVIDERS: PCP Physician Assistant; Visit Provider Physician Assistant
DX: J18.9 Pneumonia, unspecified organism (principal)
CPT/HCPCS: 71046

== ENCOUNTER → 2022-08-03 12:56 | Outpatient (CLI) | payer BC, SELFPAY ==
--- NOTE | 2022-08-03 12:56 | US_ITS ---
FINAL REPORT TECHNIQUE: Sonographic images of the thyroid were obtained. CLINICAL HISTORY: rt thryroid nodule noted on CT FINDINGS: THYROID ULTRASOUND The right thyroid gland measures 4.4 x 1.2 x 1.7 cm. The parenchyma shows normal echogenicity. Nodule A: 6 x 8 x 4 mm , solid, [id number] 3 Nodule B: 4 x 2 x 5 mm, solid, [id number] 3 Nodule C: 13 x 13 x 7 mm, solid, [id number] 4 Nodule D: 4 x 2 x 3 mm, solid, hypoechoic, TI-RADS 4 The left thyroid gland measures 4.1 x 1.2 x 1.4 cm. The parenchyma shows normal echogenicity. Nodule A: 5 x 3 x 4, solid, [id number] 4 IMPRESSION: Bilateral thyroid TI-RADS 3 and TI-RADS 4 nodules. Follow-up ultrasound in 6 months is recommended for the dominant right thyroid nodule. Reviewed, Interpreted and Dictated by Lee Corcoran III, MD Transcribed by Oly Adkins Authenticated and [facility]
== END ==
LOC: RAD 12:56
PROVIDERS: PCP Physician Assistant; Visit Provider Physician Assistant
DX: E04.1 Nontoxic single thyroid nodule (principal)
CPT/HCPCS: 76536

== ENCOUNTER 2022-08-12 10:12 | Emergency (ER) | payer BC, SELFPAY ==
[2022-08-12 10:35] VITALS: BP 127/91; PULSE 79; RESP 23; TEMP 36.6; O2SAT 98; BMI 26.6
--- NOTE | 2022-08-12 10:39 | XR_ITS ---
PROCEDURE INFORMATION: Exam: XR Chest Exam date and time: 08/12/2022 10:37 AM Age: 52 years old Clinical indication: Cough; Additional info: Cough and chest pressure- TECHNIQUE: Imaging protocol: Radiologic exam of the chest. Views: 2 views. COMPARISON: CR XR CHEST 2V 07/31/2022 9:48 AM FINDINGS: Lungs: Unremarkable. No consolidation. Pleural spaces: Unremarkable. No pleural effusion. No pneumothorax. Heart/Mediastinum: Unremarkable. No cardiomegaly. Bones/joints: Unremarkable. IMPRESSION: No acute findings.
--- NOTE | 2022-08-12 10:43 | EXP.UTC ---
Discharge Plan Disposition Patient Disposition: Home, Self-Care Condition: Good Prescriptions Prescriptions: New cefdinir 300 mg capsule 300 mg PO BID Qty: 20 0RF guaifenesin [Mucinex] 600 mg tablet extended release 12hr 600 - 1,200 mg PO BIDP PRN (Reason: Congestion) Qty: 30 0RF methylprednisolone 4 mg Tablets,Dose Pack 4 mg PO DIRECTED Qty: 21 0RF No Action levalbuterol HCl 0.31 mg/3 mL solution for nebulization 0.31 mg INHALATION Q8H PRN (Reason: shortness of breath or wheezing) Qty: 75 12RF Ultra CoQ10 75 mg capsule 75 mg PO DAILY omega 8-hnf-rix-fish oil [Fish Oil] 300-1,000 mg capsule 1 cap PO BID pantoprazole [Protonix] 40 mg tablet,delayed release (DR/EC) 40 mg PO BID Qty: 60 2RF prednisone 10 mg tablet 10 mg PO estradiol 0.5 mg tablet 0.5 mg PO DAILY Qty: 30 11RF cyclobenzaprine 10 mg tablet 10 mg PO TID PRN (Reason: muscle spasm) Qty: 90 0RF ergocalciferol (vitamin D2) 1,250 mcg (50,000 unit) capsule 1,250 mcg PO QWEEK Qty: 14 3RF peg 3350-electrolytes [GaviLyte-G] 236-22.74-6.74 -5.86 gram recon soln 240 ml PO Q10M Qty: 4000 0RF Rx Instructions: until fecal effluent is clear-- follow mailed instructions atorvastatin [Lipitor] 20 mg tablet 20 mg PO DAILY duloxetine [Cymbalta] 30 mg capsule,delayed release(DR/EC) 30 mg PO DAILY pregabalin 75 mg capsule 75 mg PO BID budesonide-formoterol [Symbicort] 160-4.5 mcg/actuation HFA aerosol inhaler 2 puff INHALATION BID cholecalciferol (vitamin D3) 50 mcg (2,000 unit) capsule 50 mcg PO DAILY lisinopril 10 mg tablet See Rx Instructions .ROUTE .COMPLEX Rx Instructions: Take 1 tablet by mouth once daily diclofenac sodium 75 mg tablet,delayed release (DR/EC) See Rx Instructions .ROUTE .COMPLEX Rx Instructions: Take 1 tablet by mouth twice daily Referrals Follow up/Referrals: Stone,Mandan Kang, PA [Primary Care Provider] - See instructions Activity Restrictions/Add. Instructions Additional Instructions/Restrictions: Drink plenty of fluids. Take tylenol or ibuprofen for pain or fever. Take the medications as directed. Follow up with your regular doctor. GO TO THE ER FOR ANY WORSENING SYMPTOMS Clinical Impressions Clinical Impression: Acute bronchitis Stand Alone Forms Stand Alone Forms: Work/School Release Instructions Patient Instructions: Acute Bronchitis, DI for Acute Bronchitis Discharge ED Provider: Drew Quezada [facility] General Stated complaint: Congestion,Left Ear pain Mode of Arrival: Ambulatory Source of Information: Patient Limitations: No Limitations Time Seen by Provider: 08/12/22 10:43 Description of Symptoms (Recalled from Triage Doc. by RN): PATIENT C/O CONGESTION, COUGH AND LEFT EAR PAIN SINCE SATURDAY. REPORTS A RECENT HISTORY OF PNEUMONIA HEENT Symptoms (Recalled from RN notes): Yes Resp Symptoms (Recalled from RN notes): Yes Skin Symptoms (Recalled from RN notes): No MS Symptoms (Recalled from RN notes): No Functional Status (Recalled from RN notes): WNL History of Present Illness Provider Complaint: She states that for the past 3 days she has had worsening chest congestion, cough, and malaise. Related Data Home Medications Medication Instructions Recorded Confirmed atorvastatin 20 mg tablet (Lipitor) 20 mg PO DAILY . 05/20/22 07/31/22 budesonide-formoterol HFA 160 2 puff inhalation BID . 05/20/22 07/31/22 mcg-4.5 mcg/actuation aerosol inhaler (Symbicort) cholecalciferol (vitamin D3) 50 50 mcg PO DAILY . 05/20/22 07/31/22 mcg (2,000 unit) capsule duloxetine 30 mg capsule,delayed 30 mg PO DAILY . 05/20/22 07/31/22 release (Cymbalta) pregabalin 75 mg capsule 75 mg PO BID . 05/20/22 07/31/22 coenzyme Q10 75 mg capsule (Ultra 75 mg PO DAILY . 06/27/22 07/31/22 CoQ10) omega 5-jas-lhf-fish oil 300 1 cap PO BID vitamin 06/27/22 07/31/22 mg-1,000 mg capsule (F
[2022-08-12 11:29] VITALS: BP 127/91; PULSE 79; RESP 23; TEMP 36.6; O2SAT 98
== END 2022-08-12 11:33 | disposition home or self-care (01) ==
PROVIDERS: Emergency Provider Nurse Practitioner Family; PCP Physician Assistant
DX: J20.9 Acute bronchitis, unspecified (principal); H92.02 Otalgia, left ear; J44.9 Chronic obstructive pulmonary disease, unspecified; K21.9 Gastro-esophageal reflux disease without esophagitis; I10 Essential (primary) hypertension; E78.5 Hyperlipidemia, unspecified; Z87.891 Personal history of nicotine dependence
CPT/HCPCS: 71046; 99212; 99214; G0463

== ENCOUNTER 2022-08-23 11:46 | Day surgery (SDC) | payer BC, SELFPAY ==
[2022-08-22 09:59] VITALS: BMI 28.6
[2022-08-23] VITALS (8 sets, daily range): BP systolic 101–144; BP diastolic 68–84; PULSE 64–82; RESP 16–18; TEMP 36.1–36.6; O2SAT 96–99
--- NOTE | 2022-08-23 13:54 | EXP.ANES.CKL ---
[facility] Disclaimer: The information contained in this section may have been updated after the patient was seen, as this information can be updated by other users. 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 Anxiety CHF (congestive heart failure) COPD (chronic obstructive pulmonary disease) Dysphagia Dyspnea Edema Esophageal spasm GERD (gastroesophageal reflux disease) History of genital warts Hyperlipidemia Hypertension Influenza A Interstitial cystitis (chronic) with hematuria LGSIL Pap smear of vagina Menopausal symptoms Osteoarthritis Plantar wart Sleep apnea Vitamin D deficiency Surgical History H/O right heart catheterization H/O spinal fusion H/O: hysterectomy History of cholecystectomy History of colonoscopy with polypectomy History of sinus surgery History of tonsillectomy Family History Other Family history of cancer Family history of hypertension 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 Smoking Status: Former smoker alcohol intake: current substance use type: denies use current occupational status: employed Travel in the last 8 weeks: None household members: spouse housing: house marital status: number of children: 3 education level: college 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 current occupational exposures/hazards: No caffeine: Yes special mahsa needs: No agree to transfusion: No do you feel safe at home: Yes victim of physical abuse: No victim of emotional abuse: No victim of sexual abuse: No would you like helpful sources: No [facility] Anesthesia Checklist Patient Identification Patient Identification: Arm Band and Verbal (Name & ) Structural Data Admitted From: Home Planned Operative Procedure/s: EGD/Colonoscopy Consent for Planned Operative Procedure(s) Verified: Yes NPO Status Verified Time NPO: 00:00 Additional verifications Anesthesia Reactions: No Hx Blood Transfusions: No Blood Transfusion Reaction: No Airway Assessment C-Spine Mobility Assessed: Yes TMJ Mobility Assessed: Yes Dentition: Good Dentition Neurological Assessment Level of Consciousness: Awake Hx Seizures: No Numbness or tingling in extremities: No Anesthesia Plan Anesthesia Risk discussed: Yes Anesthesia Plan: Verified ASA Class: III Anesthesia Type: MAC
--- NOTE | 2022-08-23 14:29 | HMH.SCOPE ---
Procedure: Date: 08/23/22 Patient Date of :: 1970 Procedure Performed:: EGd with bougie dilation Indications:: Dysphagia Performing Provider:: Fantasma Chacko MD Referring Provider:: Pia eddy PA-C Sedation:: Propofol Procedure:: The gastroscope was gently passed through the incisoral orifice into the oral cavity and under direct visualization the esophagus was intubated. The endoscope was passed down the esophagus, through the stomach, and into the duodenum. Color, texture, mucosa, and anatomy of the esophagus, stomach, and duodenum were carefully examined with the scope. Findings:: Oropharynx: normal Esophagus: normal, bougie dilation treatment for esophageal dyskinesia performed with 58F bougie EG Junction: intact at 40 cm Cardia: normal Fundus: normal Body: normal Antrum: normal Duodenal bulb: normal Duodenum (second and third portion): normal Impression: Symptomatic dysphagia treated with bougie dilation Recommendations:: Repeat dilation in about THREE years or so, sooner if clinically symptomatic Complications:: None Estimated blood obtained (mL): 0
--- NOTE | 2022-08-23 14:32 | HMH.SCOPE ---
Procedure: Date: 08/23/22 Patient Date of :: 1970 Procedure Performed:: screening colonoscopy Indications:: History of polyps,family history of colon cancer Performing Provider:: Fantasma Chacko MD Referring Provider:: Pia Rooney PA-C Sedation:: Propofol Procedure:: After placing the patient in the left lateral decubitus position, the colonoscopy was gently inserted into the rectum and under direct visualization advanced to the cecum which was identified by transillumination in the right lower quadrant, identification of the ileocecal valve, appendiceal orifice, and cecal strap. Color, texture, mucosa, and anatomy of the colon were carefully examined with the scope. Findings:: Anal canal: normal Rectum: normal Sigmoid colon: normal without polyps or inflammatory changes Descending colon: normal without polyps or inflammatory changes Splenic flexure: normal Transverse colon: normal without polyps or inflammatory changes Hepatic flexure: normal Ascending colon: normal without polyps or inflammatory changes Cecum: normal Terminal ileum: not visualized Impression: Normal colonoscopy Recommendations:: Follow up examination in about FIVE years or so, sooner if clinically indicated. Complications:: None Estimated blood obtained (mL): 0
== END 2022-08-23 15:25 | disposition home or self-care (01) ==
PROVIDERS: PCP Physician Assistant; Visit Provider Internal Medicine Gastroenterology
PROC: 0DJ08ZZ Inspection of Upper Intestinal Tract, Via Natural or Artificial Opening Endoscopic (ICD-10-PCS; CPT 43235; principal; 2022-08-23 13:00)
DX: Z12.11 Encounter for screening for malignant neoplasm of colon (principal); Z86.010 Personal history of colon polyps; Z80.0 Family history of malignant neoplasm of digestive organs; R13.10 Dysphagia, unspecified; Z79.899 Other long term (current) drug therapy
CPT/HCPCS: 45378; 43248; J2704

== ENCOUNTER → 2022-12-17 06:57 | Outpatient (CLI) | payer BC, SELFPAY ==
--- NOTE | 2022-12-17 06:57 | CT_ITS ---
FINAL REPORT TECHNIQUE: Thin section axial CT images with coronal and sagittal reformats were performed through the neck. This study was performed with techniques to keep radiation doses as low as reasonably achievable (ALARA). Individualized dose reduction techniques using automated exposure control or adjustment of mA and/or kV according to the patient''s size were employed. CLINICAL HISTORY: pain on right side of throat/neck FINDINGS: No adenopathy or mass lesion is present . Salivary glands are normal. Larynx is unremarkable. Thyroid gland is unremarkable. Paranasal sinuses are well aerated. Small posterior osteophyte formation is seen at C6-7. IMPRESSION: No acute process. Reviewed, Interpreted and Dictated by Raman Waldron MD Transcribed by Linda Miles Authenticated and [facility]
== END ==
LOC: RAD 06:57
PROVIDERS: PCP Physician Assistant; Visit Provider Physician Assistant
DX: R07.0 Pain in throat (principal)
CPT/HCPCS: 70490

== ENCOUNTER 2023-01-27 09:08 | Emergency (ER) | payer BC, SELFPAY ==
[2023-01-27 09:10] VITALS: BP 128/84; PULSE 73; RESP 18; TEMP 36.6; O2SAT 99; BMI 25.0
--- OUTSIDE RECORDS SUMMARY | 2023-01-27 09:12 | XMS_ITS | Continuity of Care Document ---
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 Phone Estelita Webster MD Unavailable Unavailable Allergies, Adverse Reactions, Alerts Substance Reaction Status Criticality TRAMADOL HCL Active No Information methylprednisolone Active No Inform ation prednisone Active No Information tetracycline Active No Information morphine Active No Information codeine Active No Information POTASSIUM CLAVULANATE Active No Inf ormation AMOXICILLIN TRIHYDRATE Active No In formation Medications Medication Instructions Dosage Effective Dates (start - stop) Status Comments diclofenac sodium 75 mg tablet,delayed release take 1 tablet by oral route 2 times every day 75 MG - Active Lyrica 75 mg capsule take 1 capsule by o ral route 2 times every day 75 MG - Active lisinopril 10 mg tablet take 1 tablet by oral route every day 10 MG - Active Vitamin D3 1,000 unit tablet take 1 tablet by oral route every day 1 tablet - Active
--- OUTSIDE RECORDS SUMMARY | 2023-01-27 09:12 | XMS_ITS | Clinical Summary ---
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 Phone Luci MCINTOSH, Lee Rodriguez [ ] Conditions or Problems Problem Name Problem Code Onset Date Status Entry Date Provider Comment Standard Description Annotate Esophageal spasm 27822637 (SNOMED CT) 01/13 Active 01/13 Lee Verma MD Diffuse spasm of esophagus Contact with and (suspected) exposure to environmental tobacco smoke (acute) (chronic) Z77.22 (ICD-10-CM ) 07/04 Active 07/04 Bailey L Contact with and (suspected) exposure to environmental tobacco smoke (acute) (chronic) Nicotine dependence, cigarettes, in remission 512306250 (SNOMED CT) 07/04 Active 07/04 Bailey L Tobacco dependence in remission History of H. Pylori infection Z86.19 (ICD-10-CM ) 07/04 Active 07/04 Bailey L Personal history of other infectious and parasitic diseases Adverse effect of tetracyclines,
--- NOTE | 2023-01-27 09:28 | EXP.UTC ---
Discharge Plan Disposition Patient Disposition: Home, Self-Care Condition: Good Prescriptions Prescriptions: New azithromycin [Zithromax] 250 mg tablet 250 mg PO UD DOSE PK Qty: 6 0RF Rx Instructions: Take two (2) tablets today, then one (1) tablet days #2 thru #5 benzonatate 200 mg capsule 200 mg PO BID PRN (Reason: cough) Qty: 30 0RF methylprednisolone 4 mg Tablets,Dose Pack 4 mg PO DIRECTED Qty: 21 0RF No Action levalbuterol HCl 0.31 mg/3 mL solution for nebulization 0.31 mg INHALATION Q8H PRN (Reason: shortness of breath or wheezing) Qty: 75 12RF montelukast [Singulair] 10 mg tablet 10 mg PO HS levocetirizine [Xyzal] 5 mg tablet 5 mg PO DAILY duloxetine [Cymbalta] 60 mg capsule,delayed release(DR/EC) 60 mg PO DAILY Qty: 30 2RF pregabalin 75 mg capsule 75 mg PO BID Qty: 60 2RF ergocalciferol (vitamin D2) 1,250 mcg (50,000 unit) capsule 1,250 mcg PO QWEEK Qty: 14 3RF lisinopril 10 mg tablet See Rx Instructions .ROUTE .COMPLEX Qty: 30 0RF Dose Instruction: Take 1 tablet by mouth once daily Rx Instructions: Take 1 tablet by mouth once daily diclofenac sodium 75 mg tablet,delayed release (DR/EC) See Rx Instructions .ROUTE .COMPLEX Qty: 60 0RF Dose Instruction: Take 1 tablet by mouth twice daily Rx Instructions: Take 1 tablet by mouth twice daily pantoprazole [Protonix] 40 mg tablet,delayed release (DR/EC) 40 mg PO BID estradiol 0.5 mg tablet 0.5 mg PO DAILY budesonide-formoterol [Symbicort] 160-4.5 mcg/actuation HFA aerosol inhaler 2 puff INHALATION BID cholecalciferol (vitamin D3) 50 mcg (2,000 unit) capsule 50 mcg PO DAILY Referrals Follow up/Referrals: Pia Rooney PA [Primary Care Provider] - See instructions Activity Restrictions/Add. Instructions Additional Instructions/Restrictions: Drink plenty of fluids. Take tylenol or ibuprofen for pain or fever. Take the medications as directed. Follow up with your regular doctor. GO TO THE ER FOR ANY WORSENING SYMPTOMS Clinical Impressions Clinical Impression: Bronchitis, Acute viral syndrome, Exposure to 2019 novel coronavirus Stand Alone Forms Stand Alone Forms: Work/School Release Instructions Patient Instructions: Acute Bronchitis, DI for Acute Bronchitis, Coronavirus Disease 2019, Preventing the Spread of Coronavirus Discharge Instructions Discharge ED Provider: Drew Quezada [facility] HPI General Stated complaint: sore throat,chest congestion,feels bad all over Time Seen by Provider: 01/27/23 09:28 History of Present Illness Provider Complaint: She states that for the past 2 days she has had sore throat, chills, fever, productive cough and malaise. She has been exposed to covid-19 at her work. Related Data Home Medications Medication Instructions Recorded Confirmed budesonide-formoterol HFA 160 2 puff inhalation BID Breathing 05/20/22 01/27/23 mcg-4.5 mcg/actuation aerosol problems inhaler (Symbicort) cholecalciferol (vitamin D3) 50 50 mcg PO DAILY Supplement 05/20/22 01/27/23 mcg (2,000 unit) capsule estradiol 0.5 mg tablet 0.5 mg PO DAILY HORMONE 08/22/22 01/27/23 pantoprazole 40 mg tablet,delayed 40 mg PO BID Reflux/Acid reflux 08/22/22 01/27/23 release (Protonix) levocetirizine 5 mg tablet (Xyzal) 5 mg PO DAILY 11/29/22 11/29/22 montelukast 10 mg tablet 10 mg PO HS 11/29/22 01/27/23 (Singulair) Previous Rx's Medication Instructions Recorded levalbuterol HCl 0.31 mg/3 mL 0.31 mg (3 mL) inhalation Q8H PRN 07/26/20 solution for nebulization shortness of breath or wheezing #75 mL ergocalciferol (vitamin D2) 1,250 1,250 mcg PO QWEEK Supplement #14 05/18/22 mcg (50,000 unit) capsule caps diclofenac sodium 75 mg See Rx Instructions .Route 09/20/22 tablet,delayed release .COMPLEX #60 tabs lisinopril 10 mg tablet See Rx Instructions .Route 09/20/22 .COMPLEX #30 tabs duloxetine
--- NOTE | 2023-01-27 09:30 | XR_ITS ---
PROCEDURE INFORMATION: Exam: XR Chest Exam date and time: 01/27/2023 9:27 AM Age: 52 years old Clinical indication: Cough; Patient HX: H/o pneumonia, PT is a smoker TECHNIQUE: Imaging protocol: Radiologic exam of the chest. Views: 2 views. COMPARISON: CR XR CHEST 2V 08/12/2022 10:37 AM FINDINGS: Lungs: Unremarkable. No consolidation. Pleural spaces: Unremarkable. No pleural effusion. No pneumothorax. Heart/Mediastinum: Unremarkable. No cardiomegaly. Bones/joints: Unremarkable. IMPRESSION: No acute findings.
--- NOTE | 2023-01-27 09:34 | PC.NURSE ---
Called RAD about xray order
[2023-01-27 09:41] LABS: UTC Influenza A Antigen Negative (Negative); UTC Strep Screen (Rapid) Negative (Negative)
[2023-01-27 09:42] LABS: UTC Influenza B Antigen Negative (Negative)
[2023-01-27 09:54] VITALS: BP 128/84; PULSE 73; RESP 18; TEMP 36.6; O2SAT 99
== END 2023-01-27 09:54 | disposition home or self-care (01) ==
PROVIDERS: Emergency Provider Nurse Practitioner Family; PCP Physician Assistant
DX: J20.9 Acute bronchitis, unspecified (principal); R53.81 Other malaise; J44.9 Chronic obstructive pulmonary disease, unspecified; I11.0 Hypertensive heart disease with heart failure; I50.9 Heart failure, unspecified; K21.9 Gastro-esophageal reflux disease without esophagitis; E78.5 Hyperlipidemia, unspecified; M19.09 Primary osteoarthritis, other specified site; G47.30 Sleep apnea, unspecified; E55.9 Vitamin D deficiency, unspecified; F41.9 Anxiety disorder, unspecified; Z87.891 Personal history of nicotine dependence; Z20.822 Contact with and (suspected) exposure to COVID-19
CPT/HCPCS: 71046; 87635; 87804; 87880; 99212; 99214; G0463

== ENCOUNTER → 2023-01-30 11:41 | Outpatient (CLI) | payer BC, SELFPAY ==
[2023-01-30 18:02] LABS: Basophils # 0.1 K/mm3 (0-0.2); Basophils % 1.1 % (0.1-2.0); Eosinophils # 0.2 K/mm3 (0.0-0.4); Eosinophils % 1.9 % (0.1-12.0); Hematocrit 45.5 % (37.0-47.0); Hemoglobin 15.6 g/dL (12.2-16.2); Lymphocytes % 40.1 % (10-50); Mean Corpuscular HGB Conc 34.3 g/dL (31.8-35.4); Mean Corpuscular Hemoglobin 32.4 pg (27.0-31.2); Mean Corpuscular Volume 94.5 fl (81-99); Mean Platelet Volume 10.3 fl (7.4-10.4); Monocytes # 0.4 K/mm3 (0.1-1.0); Monocytes % 4.3 % (1.7-9.3); Neutrophils # 5.2 K/mm3 (1.8-7.8); Neutrophils % 52.6 % (37.0-80.0); Platelet Count 216 K/mm3 (142-424); Red Blood Count 4.82 M/mm3 (4.20-5.40); Red Cell Distribution Width 12.9 % (11.5-17.5); White Blood Count 9.8 K/mm3 (4.8-10.8)
[2023-01-30 18:06] LABS: Alanine Aminotransferase 32 U/L (12-78); Albumin Level 4.5 g/dl (3.5-5.0); Albumin/Globulin Ratio 1.6 (1.1-1.8); Alkaline Phosphatase 98 U/L (38-126); Anion Gap 12.6 mEq/L (5-15); Aspartate Amino Transferase 35 U/L (14-36); Bilirubin,Total 0.3 mg/dl (0.2-1.3); Blood Urea Nitrogen 21 mg/dl (7-17); Calcium 9.4 mg/dl (8.4-10.2); Carbon Dioxide 30 mmol/L (22.0-30.0); Chloride 105 mmol/L (98-107); Estimated Glomerular Filt Rate 87 ml/min (>60); GFR (African American) 106 ML/MIN (>60); Globulin 2.8 g/dL (1.3-3.2); Glucose 88 mg/dl (74-100); Potassium 4.6 mmoL/L (3.5-5.1); Sodium 143 mmol/L (136-145); Total Protein,Serum 7.3 g/dl (6.3-8.2)
[2023-01-30 18:21] LABS: 25-OH Vitamin D, Total 35.6 ng/mL (30-100)
[2023-01-30 18:59] LABS: Hemoglobin A1C 5.6 % (4.0-6.0)
[2023-01-30 19:45] LABS: Erythrocyte Sedimentation Rate 13 mm/hr (0-30)
== END ==
LOC: LAB.DROPOF 01-31 06:22
PROVIDERS: PCP Internal Medicine; Visit Provider Internal Medicine
DX: R06.02 Shortness of breath (principal); J20.9 Acute bronchitis, unspecified; B34.9 Viral infection, unspecified
CPT/HCPCS: 80053; 82306; 83036; 85025; 85651; 87635

== ENCOUNTER → 2023-02-12 14:44 | Outpatient (CLI) | payer BC, SELFPAY ==
--- NOTE | 2023-02-12 14:44 | MM_ITS ---
PROCEDURE INFORMATION: Exam: MG Bilateral Screening 3D Mammography Exam date and time: 02/12/2023 2:42 PM Age: 52 years old Clinical indication: Screening mammogram TECHNIQUE: Imaging protocol: Bilateral Screening tomosynthesis and 2D mammography including computer-aided detection (CAD) when performed. COMPARISON: 1. MG MM DIG SCREENING MAMM BI W/CAD 03/22/2022 8:20 AM 2. MG MM DIG SCREENING MAMM BI W/CAD 04/29/2020 8:39 AM 3. MG DMSB DIG MAMM-SCREEN KAREN 10/21/2015 9:48 AM 4. MG MM L-MAMM FU VIEWS 06/09/2009 8:48 AM FINDINGS: MAMMOGRAPHY: Breast composition: There are scattered areas of fibroglandular density. Mass: None. Architectural distortion: No new or suspicious architectural distortion. Calcifications: No new or suspicious calcifications are present Asymmetric density: No new or suspicious asymmetric density is present Skin thickening: None. Axillary adenopathy: None. IMPRESSION: No mammographic evidence of malignancy. Recommend annual screening mammography unless otherwise clinically indicated. ASSESSMENT: BI-RADS category 1: Negative
== END ==
PROVIDERS: PCP Physician Assistant; Visit Provider Physician Assistant
DX: Z12.31 Encounter for screening mammogram for malignant neoplasm of breast (principal)
CPT/HCPCS: 77063; 77067

== ENCOUNTER 2023-03-09 11:32 | Emergency (ER) | payer BC, SELFPAY ==
--- NOTE | 2023-03-09 11:31 | ECG_ITS ---
APPROVED REPORT Exam: Resting ECG HR:89 bpm ECG Measurements Heart Rate 89 AXES GA 127 P 74 QRSd 93 QRS 90 QT 378 T 77 QTc 425 Conclusion SINUS RHYTHM POSSIBLE RIGHT VENTRICULAR CONDUCTION DELAY [RSR (QR) IN V1/V2] BORDERLINE ECG UNCONFIRMED REPORT Electronically signed by : Mata Cole MD 03/09/2023 21:18:02
[2023-03-09 11:32] VITALS: BP 134/93; PULSE 89; RESP 20; TEMP 36.4; O2SAT 96; BMI 25.0
[2023-03-09 11:49] LABS: Chloride 104 mmol/L (98-107); Sodium 140 mmol/L (136-145)
--- NOTE | 2023-03-09 11:49 | XR_ITS ---
PROCEDURE INFORMATION: Exam: XR Chest Exam date and time: 03/09/2023 11:49 AM Age: 53 years old Clinical indication: Shortness of breath; Additional info: SOB TECHNIQUE: Imaging protocol: Radiologic exam of the chest. Views: 1 view. COMPARISON: CR XR CHEST 2V 01/27/2023 9:27 AM FINDINGS: Lungs: Unremarkable. No consolidation. Pleural spaces: Unremarkable. No pleural effusion. No pneumothorax. Heart/Mediastinum: Unremarkable. No cardiomegaly. Bones/joints: Unremarkable. IMPRESSION: No acute findings.
[2023-03-09 11:50] LABS: Basophils # 0.1 K/mm3 (0-0.2); Basophils % 0.9 % (0.1-2.0); Eosinophils # 0.2 K/mm3 (0.0-0.4); Eosinophils % 1.6 % (0.1-12.0); Hematocrit 47.1 % (37.0-47.0); Hemoglobin 16.1 g/dL (12.2-16.2); Lymphocytes # 4.7 K/mm3 (0.7-4.5); Lymphocytes % 38.7 % (10-50); Mean Corpuscular HGB Conc 34.3 g/dL (31.8-35.4); Mean Corpuscular Hemoglobin 31.5 pg (27.0-31.2); Mean Platelet Volume 8.9 fl (7.4-10.4); Monocytes # 0.6 K/mm3 (0.1-1.0); Monocytes % 4.8 % (1.7-9.3); Neutrophils # 6.6 K/mm3 (1.8-7.8); Platelet Count 223 K/mm3 (142-424); Potassium 4.2 mmoL/L (3.5-5.1); Red Blood Count 5.12 M/mm3 (4.20-5.40); White Blood Count 12.2 K/mm3 (4.8-10.8)
--- NOTE | 2023-03-09 11:51 | HMH.EDGENADL ---
Discharge Plan Disposition Patient Disposition: Home, Self-Care Chief Complaint: Shortness of Breath/Dyspnea Prescriptions Prescriptions: No Action levalbuterol HCl 0.31 mg/3 mL solution for nebulization 0.31 mg INHALATION Q8H PRN (Reason: shortness of breath or wheezing) Qty: 75 12RF montelukast [Singulair] 10 mg tablet 10 mg PO HS levocetirizine [Xyzal] 5 mg tablet 5 mg PO DAILY duloxetine [Cymbalta] 60 mg capsule,delayed release(DR/EC) 60 mg PO DAILY Qty: 30 2RF pregabalin 75 mg capsule 75 mg PO BID Qty: 60 2RF levofloxacin 500 mg tablet 500 mg PO DAILY 14 Days Qty: 14 0RF cholecalciferol (vitamin D3) 125 mcg (5,000 unit) capsule 125 mcg PO DAILY 90 Days Qty: 90 2RF ergocalciferol (vitamin D2) 1,250 mcg (50,000 unit) capsule 1,250 mcg PO QWEEK Qty: 14 3RF lisinopril 10 mg tablet See Rx Instructions .ROUTE .COMPLEX Qty: 30 3RF Dose Instruction: Take 1 tablet by mouth once daily Rx Instructions: Take 1 tablet by mouth once daily diclofenac sodium 75 mg tablet,delayed release (DR/EC) See Rx Instructions .ROUTE .COMPLEX Qty: 60 0RF Dose Instruction: Take 1 tablet by mouth twice daily Rx Instructions: Take 1 tablet by mouth twice daily pantoprazole 40 mg tablet,delayed release (DR/EC) See Rx Instructions .ROUTE .COMPLEX Qty: 60 3RF Dose Instruction: Take 1 tablet by mouth twice daily Rx Instructions: Take 1 tablet by mouth twice daily estradiol 0.5 mg tablet 0.5 mg PO DAILY budesonide-formoterol [Symbicort] 160-4.5 mcg/actuation HFA aerosol inhaler 2 puff INHALATION BID cholecalciferol (vitamin D3) 50 mcg (2,000 unit) capsule 50 mcg PO DAILY azithromycin [Zithromax] 250 mg tablet 250 mg PO UD DOSE PK Qty: 6 0RF Rx Instructions: Take two (2) tablets today, then one (1) tablet days #2 thru #5 benzonatate 200 mg capsule 200 mg PO BID PRN (Reason: cough) Qty: 30 0RF methylprednisolone 4 mg Tablets,Dose Pack 4 mg PO DIRECTED Qty: 21 0RF Referrals Follow up/Referrals: Provider,Referral, MD [Primary Care Provider] - See instructions Activity Restrictions/Add. Instructions Additional Instructions/Restrictions: At this time it was felt you are safe to be discharged home. If new or worsening symptoms please do not hesitate to return the emergency department. If symptoms persist please follow-up with your family doctor as you are able. Clinical Impressions Clinical Impression: Esophageal spasm, Chest pain Discharge ED Provider: Marquis Lewis General Adult HPI General Chief complaint: Shortness of Breath/Dyspnea Stated complaint: SOB Time Seen by Provider: 03/09/23 11:40 Mode of Arrival: Wheelchair Source of Information: Patient Limitations: No Limitations Description of Symptoms (Recalled from ER Triage Doc. by RN): Pt reports began feeling SOA while at History of Present Illness HPI narrative: Patient is a 53-year-old female with past medical history of esophageal spasm status post endoscopic intervention, multiple other comorbidities who presents emergency department for evaluation of throat pain. Onset was acute, earlier today. She states it feels similar to her previous spasms where it a sense from her stomach up into her neck with associated hoarseness of voice. Patient has also had watery diarrhea over the last 24 hours. No other acute complaints at this time. Related Data Home Medications Medication Instructions Recorded Confirmed budesonide-formoterol HFA 160 2 puff inhalation BID Breathing 05/20/22 01/30/23 mcg-4.5 mcg/actuation aerosol problems inhaler (Symbicort) cholecalciferol (vitamin D3) 50 50 mcg PO DAILY Supplement 05/20/22 01/30/23 mcg (2,000 unit) capsule estradiol 0.5 mg tablet 0.5 mg PO DAILY HORMONE 08/22/22 01/30/23 levocetirizine 5 mg tablet (Xyzal) 5 mg PO DAILY 11/29/22 01/30/23 montelukast 10 mg tablet 10 mg PO HS 11/29/22
[2023-03-09 11:52] LABS: Alanine Aminotransferase 37 U/L (12-78); Alkaline Phosphatase 105 U/L (38-126); Aspartate Amino Transferase 46 U/L (14-36); Bilirubin,Total 0.6 mg/dl (0.2-1.3); Blood Urea Nitrogen 27 mg/dl (7-17); Creatinine Clearance Estimated 62 mL/min (50-200); Estimated Glomerular Filt Rate 52 ml/min (>60); GFR (African American) 62 ML/MIN (>60)
[2023-03-09 11:53] LABS: Albumin/Globulin Ratio 1.4 (1.1-1.8); Anion Gap 12.2 mEq/L (5-15); Calcium 9.5 mg/dl (8.4-10.2); Carbon Dioxide 28 mmol/L (22.0-30.0); Globulin 3.5 g/dL (1.3-3.2); Glucose 107 mg/dl (74-100); Total Protein,Serum 8.5 g/dl (6.3-8.2)
[2023-03-09 12:00] VITALS: BP 105/63; PULSE 72; RESP 27; O2SAT 96
[2023-03-09 12:18] LABS: Troponin I < 0.01 ng/ml (0.00-0.034)
[2023-03-09 12:30] VITALS: BP 92/58; PULSE 65; RESP 22; O2SAT 95
--- NOTE | 2023-03-09 12:39 | PC.NURSE ---
Rounded on pt. Pt resting with eyes closed. Respirations are even and unlabored. remains at BS and call light within reach. No needs voiced.
[2023-03-09 13:01] VITALS: BP 98/68; PULSE 94; RESP 18; O2SAT 94
--- NOTE | 2023-03-09 13:08 | PC.NURSE ---
Dr. Lewis at BS to update pt on results and POC
[2023-03-09 13:43] VITALS: BP 100/72; PULSE 72; RESP 16; TEMP 36.8; O2SAT 98
== END 2023-03-09 13:45 | disposition home or self-care (01) ==
PROVIDERS: Emergency Provider Emergency Medicine
DX: R07.89 Other chest pain (principal); K22.4 Dyskinesia of esophagus; R06.02 Shortness of breath; R19.7 Diarrhea, unspecified; F17.210 Nicotine dependence, cigarettes, uncomplicated; J44.9 Chronic obstructive pulmonary disease, unspecified; I11.0 Hypertensive heart disease with heart failure; I50.9 Heart failure, unspecified; K21.9 Gastro-esophageal reflux disease without esophagitis; E78.5 Hyperlipidemia, unspecified
CPT/HCPCS: 71045; 80053; 84484; 85025; 93005; 96374; 99284

== ENCOUNTER → 2023-03-12 15:38 | Outpatient (CLI) | payer BC, SELFPAY ==
[2023-03-12 16:13] LABS: Basophils # 0.1 K/mm3 (0-0.2); Basophils % 1.1 % (0.1-2.0); Eosinophils # 0.1 K/mm3 (0.0-0.4); Eosinophils % 1.4 % (0.1-12.0); Hemoglobin 16.6 g/dL (12.2-16.2); Lymphocytes # 3.9 K/mm3 (0.7-4.5); Lymphocytes % 38.7 % (10-50); Mean Corpuscular HGB Conc 33.2 g/dL (31.8-35.4); Mean Corpuscular Hemoglobin 30.8 pg (27.0-31.2); Mean Corpuscular Volume 92.8 fl (81-99); Mean Platelet Volume 8.9 fl (7.4-10.4); Monocytes # 0.4 K/mm3 (0.1-1.0); Monocytes % 3.7 % (1.7-9.3); Neutrophils # 5.5 K/mm3 (1.8-7.8); Neutrophils % 55.1 % (37.0-80.0); Platelet Count 222 K/mm3 (142-424); Red Blood Count 5.39 M/mm3 (4.20-5.40); Red Cell Distribution Width 12.8 % (11.5-17.5); White Blood Count 10.1 K/mm3 (4.8-10.8)
[2023-03-12 16:59] LABS: Alanine Aminotransferase 32 U/L (12-78); Albumin Level 4.5 g/dl (3.5-5.0); Albumin/Globulin Ratio 1.6 (1.1-1.8); Alkaline Phosphatase 99 U/L (38-126); Anion Gap 10.7 mEq/L (5-15); Aspartate Amino Transferase 35 U/L (14-36); Bilirubin,Total 0.4 mg/dl (0.2-1.3); Blood Urea Nitrogen 15 mg/dl (7-17); Calcium 9.2 mg/dl (8.4-10.2); Carbon Dioxide 31 mmol/L (22.0-30.0); Chloride 101 mmol/L (98-107); Estimated Glomerular Filt Rate 74 ml/min (>60); GFR (African American) 90 ML/MIN (>60); Globulin 2.9 g/dL (1.3-3.2); Glucose 101 mg/dl (74-100); Potassium 4.7 mmoL/L (3.5-5.1); Sodium 138 mmol/L (136-145); Total Protein,Serum 7.4 g/dl (6.3-8.2)
[2023-03-12 17:13] LABS: C-Reactive Protein 3.7 mg/L (0-4)
[2023-03-12 17:35] LABS: Erythrocyte Sedimentation Rate 6 mm/hr (0-30)
[2023-03-15 13:00] LABS: Anti-Centromere B Antibodies <0.2 AI (0.0-0.9); Anti-DNA (DS) Ab Qn 6 IU/mL (0-9); Anti-Jo-1 <0.2 AI (0.0-0.9); Anti-Smith Antibody <0.2 AI (0.0-0.9); Antichromatin Antibodies <0.2 AI (0.0-0.9); Antiscleroderma-70 Antibodies <0.2 AI (0.0-0.9); RA Latex Turbid. 10.1 IU/mL (<14.0); RNP Antibodies <0.2 AI (0.0-0.9); Sjogren's Anti-SS-A <0.2 AI (0.0-0.9); Sjogren's Anti-SS-B <0.2 AI (0.0-0.9)
[2023-03-20 18:09] LABS: APTT 27.4 sec (.); Anti-Cardiolipin Antibody IgG <10 GPL (.); Anti-Cardiolipin Antibody IgM <10 MPL (.); Beta-2 Glycoprotein I Ab, IgA <10 SAU (.); Beta-2 Glycoprotein I Ab, IgG <10 SGU (.); Beta-2 Glycoprotein I Ab, IgM <10 SMU (.); Hexagonal Phase Phospholipid 3 sec (.); INR 1.1 ratio (.); Prothrombin Time 11.3 sec (.); Thrombin Time 19.2 sec (.)
[2023-03-25 10:20] LABS: AChR Modulating Ab 9 % (0-45)
[2023-03-25 21:15] LABS: MuSK Antibodies <1.0
== END ==
LOC: LAB 15:38
PROVIDERS: PCP Physician Assistant; Visit Provider Physician Assistant
DX: K22.4 Dyskinesia of esophagus (principal)
CPT/HCPCS: 36415; 80053; 83519; 85025; 85597; 85598; 85610; 85613; 85651; 85670; 85730; 86140; 86146; 86147; 86225; 86235; 86255; 86431

== ENCOUNTER → 2023-03-22 08:22 | Outpatient (CLI) | payer BC, SELFPAY ==
[2023-03-22 15:15] LABS: Coronavirus 19, PCR Not Detected (NotDetected); Influenza A, PCR Not Detected (NotDetected); Influenza B, PCR Not Detected (NotDetected)
== END ==
LOC: LAB.DROPOF 03-23 08:23
PROVIDERS: PCP Physician Assistant; Visit Provider Internal Medicine
DX: R06.02 Shortness of breath (principal)
CPT/HCPCS: 87636

== ENCOUNTER 2023-05-19 14:31 | Emergency (ER) | payer BC, SELFPAY ==
[2023-05-19 15:10] VITALS: BP 141/84; PULSE 78; RESP 18; TEMP 36.8; O2SAT 96; BMI 24.7
--- NOTE | 2023-05-19 15:10 | EXP.UTC ---
Discharge Plan Disposition Patient Disposition: Home, Self-Care Condition: Good Prescriptions Prescriptions: New cephalexin 500 mg capsule 500 mg PO QID Qty: 40 0RF methylprednisolone 4 mg Tablets,Dose Pack 4 mg PO DIRECTED 6 Days Qty: 21 0RF Rx Instructions: Take 1 pack as directed for 6 days No Action levalbuterol HCl 0.31 mg/3 mL solution for nebulization 0.31 mg INHALATION Q8H PRN (Reason: shortness of breath or wheezing) Qty: 75 12RF montelukast [Singulair] 10 mg tablet 10 mg PO HS levocetirizine [Xyzal] 5 mg tablet 5 mg PO DAILY pregabalin 75 mg capsule 75 mg PO BID Qty: 60 2RF nitroglycerin 0.3 mg tablet, sublingual 0.3 mg sublingual Q5M PRN (Reason: chest pain/esophageal spasms) Qty: 25 0RF Rx Instructions: do not exceed 3 doses per episode nifedipine 10 mg capsule 10 mg PO TID Qty: 90 2RF cholecalciferol (vitamin D3) 125 mcg (5,000 unit) capsule 125 mcg PO DAILY 90 Days Qty: 90 2RF ergocalciferol (vitamin D2) 1,250 mcg (50,000 unit) capsule 1,250 mcg PO QWEEK Qty: 14 3RF pantoprazole 40 mg tablet,delayed release (DR/EC) See Rx Instructions .ROUTE .COMPLEX Qty: 60 3RF Dose Instruction: Take 1 tablet by mouth twice daily Rx Instructions: Take 1 tablet by mouth twice daily diclofenac sodium 75 mg tablet,delayed release (DR/EC) See Rx Instructions .ROUTE .COMPLEX Qty: 60 0RF Dose Instruction: Take 1 tablet by mouth twice daily Rx Instructions: Take 1 tablet by mouth twice daily duloxetine 60 mg capsule,delayed release(DR/EC) See Rx Instructions .ROUTE .COMPLEX Qty: 30 0RF Dose Instruction: Take 1 capsule by mouth once daily Rx Instructions: Take 1 capsule by mouth once daily estradiol 0.5 mg tablet 0.5 mg PO DAILY budesonide-formoterol [Symbicort] 160-4.5 mcg/actuation HFA aerosol inhaler 2 puff INHALATION BID cholecalciferol (vitamin D3) 50 mcg (2,000 unit) capsule 50 mcg PO DAILY Referrals Follow up/Referrals: Pia Rooney PA [Primary Care Provider] - See instructions Christal Rutledge DPM [Staff Physician] - See instructions Activity Restrictions/Add. Instructions Additional Instructions/Restrictions: Rest the extremity, Elevate the extremity as tolerated while you are resting. Take ibuprofen for pain. Take the medications as directed. Follow up with Dr. Rutledge (podiatry). I put in a referral but you need to call her office and schedule an appointment. Follow up with your regular doctor. GO TO THE ER FOR ANY WORSENING SYMPTOMS Clinical Impressions Clinical Impression: Left foot pain Stand Alone Forms Stand Alone Forms: Work/School Release Instructions Patient Instructions: DI for Foot Pain, Ketorolac Injection Discharge ED Provider: Drew Quezada [facility] General Stated complaint: Left foot pain no injury Time Seen by Provider: 05/19/23 15:10 History of Present Illness Provider Complaint: She states that for the past 2 days she has had worsening left foot pain. She denies any injury. She is not a known diabetic. Related Data Home Medications Medication Instructions Recorded Confirmed budesonide-formoterol HFA 160 2 puff inhalation BID Breathing 05/20/22 03/22/23 mcg-4.5 mcg/actuation aerosol problems inhaler (Symbicort) cholecalciferol (vitamin D3) 50 50 mcg PO DAILY Supplement 05/20/22 03/22/23 mcg (2,000 unit) capsule estradiol 0.5 mg tablet 0.5 mg PO DAILY HORMONE 08/22/22 03/22/23 levocetirizine 5 mg tablet (Xyzal) 5 mg PO DAILY 11/29/22 03/22/23 montelukast 10 mg tablet 10 mg PO HS 11/29/22 03/22/23 (Singulair) Previous Rx's Medication Instructions Recorded levalbuterol HCl 0.31 mg/3 mL 0.31 mg (3 mL) inhalation Q8H PRN 07/26/20 solution for nebulization shortness of breath or wheezing #75 mL ergocalciferol (vitamin D2) 1,250 1,250 mcg PO QWEEK Supplement #14 05/18/22 mcg (50,000 unit) capsule caps pregabalin 75 mg capsule 75 mg PO BID Supplement #60 caps 11/29/22 cholecalciferol (vitamin D3) 125 125 mcg PO DAILY 90 days #90 caps 01/31/23 mcg (5,000 unit) capsule pantoprazole 40 mg tablet,delayed See Rx Instructions .Route 02/26/23 release .COMPLEX #60 tabs nifedipine 10 mg capsule 10 mg PO TID #90 caps 03/12/23 nitroglycerin 0.3 mg sublingual 0.3 mg sublingual Q5M PRN chest 03/12/23 tablet pain/esophageal spasms #25 tabs diclofenac sodium 75 mg See Rx Instructions .Route 03/25/23 tablet,delayed release .COMPLEX #60 tabs duloxetine 60 mg capsule,delayed See Rx Instructions .Route 04/23/23 release .COMPLEX #30 ea cephalexin 500 mg capsule 500 mg PO QID #40 caps 05/19/23 methylprednisolone 4 mg tablets in 4 mg PO DIRECTED 6 days #21 tabs 05/19/23 a dose pack Allergies Allergy/AdvReac Type Severity Reaction Status Date / Time amoxicillin [From AUGMENTIN] Allergy Intermediate I-ITCHING Verified 05/19/23 15:22 clavulanic acid Allergy Intermediate I-ITCHING Verified 05/19/23 15:22 [From AUGMENTIN] codeine [CODEINE] Allergy Unknown I-ITCHING Verified 05/19/23 15:22 morphine [MORPHINE] Allergy Unknown I-ITCHING,N Verified 05/19/23 15:22 /V tetracycline [TETRACYCLINE] Allergy Unknown I-ITCHING Verified 05/19/23 15:22 PFSH [facility] Disclaimer: The information contained in this section may have been updated after the patient was seen, as this information can be updated by other users. 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 Anxiety CHF (congestive heart failure) COPD (chronic obstructive pulmonary disease) Dysphagia Dyspnea Edema Esophageal spasm GERD (gastroesophageal reflux disease) History of genital warts Hyperlipidemia Hypertension Influenza A Interstitial cystitis (chronic) with hematuria LGSIL Pap smear of vagina Menopausal symptoms Osteoarthritis Plantar wart Sleep apnea Vitamin D deficiency Surgical History H/O right heart catheterization H/O spinal fusion H/O: hysterectomy has right ovary History of cholecystectomy History of colonoscopy with polypectomy History of esophagogastroduodenoscopy (EGD) History of sinus surgery History of tonsillectomy History of vaginectomy Family History Other Family history of cancer Family history of hypertension 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 Smoking Status: Current every day smoker tobacco type: cigarettes packs per day: 1 alcohol intake: current substance use type: denies use current occupational status: employed Travel in the last 8 weeks: None household members: spouse housing: house marital status: number of children: 3 education level: college 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 current occupational exposures/hazards: No caffeine: Yes special mahsa needs: No agree to transfusion: No do you feel safe at home: Yes victim of physical abuse: No victim of emotional abuse: No victim of sexual abuse: No would you like helpful sources: No ROS Obtained: Yes All systems reviewed & no additional complaints except as documented Constitutional Constitutional: Denies chills and Denies fever(s) Eyes Eyes: Denies eye discharge ENT Ears, Nose, Mouth, and Throat: Denies dizziness, Denies otalgia and Denies sore throat Cardiovascular Cardiovascular: Denies chest pain Respiratory Respiratory: Denies shortness of breath, Denies chest congestion, Denies cough, Denies stridor and Denies wheezing Gastrointestinal Gastrointestingal: Denies nausea or vomiting Musculoskeletal Musculoskeletal: Reports system reviewed and no additional complaints, except as documented and Denies arthralgias Integumentary/Breasts Skin/Breast: Reports as per HPI and Reports redness Neurologic Neurologic: Denies dizziness and Denies paresthesias Allergic/Immunologic Allergic/Immunologic: Denies wheezing Physical Exam General General appearance: alert and in no apparent distress Head Head exam: atraumatic, normocephalic and normal inspection Eye Eye exam: Present normal appearance, PERRL and EOMI ENT ENT exam: Present normal exam, normal oropharynx, mucous membranes moist, TM's normal bilaterally and normal external ear exam Neck Neck exam: Present normal inspection, full ROM and trachea midline; Absent meningismus or lymphadenopathy Chest Chest inspection: Present normal inspection and symmetric chest wall rise; Absent tenderness Respiratory Respiratory exam: Present normal lung sounds bilaterally; Absent respiratory distress Cardiovascular Cardiovascular exam: Present regular rate and normal rhythm; Absent JVD Abdominal Exam Abdominal exam: Present soft and normal bowel sounds; Absent distention, tenderness or guarding Extremities Exam Extremities exam: Present normal inspection, full ROM and normal capillary refill; Absent calf tenderness Back Exam Back exam: Present normal inspection; Absent tenderness Neurological Exam Neurological exam: Present alert and oriented X3 Psychiatric Psychiatric exam: Present normal affect and normal mood Skin Skin exam: Present erythema (there is erythema of her 4th toe on her left foot. ) Lymphatic Lymphatic Findings: no adenopathy Medical Decision Making Medical Records Medical records reviewed: No I reviewed the patient's medical records. Lorenzo Inquiry Pt receiving controlled substance: No Lab Data Lab results reviewed: Yes I reviewed the patient's lab results.
[2023-05-19] MEDS: KETOROLAC 60MG/2ML VIAL 60 MG IM (15:39)
[2023-05-19 15:56] VITALS: BP 141/84; PULSE 78; RESP 18; TEMP 36.8; O2SAT 96
== END 2023-05-19 15:56 | disposition home or self-care (01) ==
PROVIDERS: Emergency Provider Nurse Practitioner Family; PCP Physician Assistant
DX: M79.672 Pain in left foot (principal); F17.210 Nicotine dependence, cigarettes, uncomplicated; J44.9 Chronic obstructive pulmonary disease, unspecified; I11.0 Hypertensive heart disease with heart failure; I50.9 Heart failure, unspecified; K21.9 Gastro-esophageal reflux disease without esophagitis; E78.5 Hyperlipidemia, unspecified
CPT/HCPCS: 96372; 99212; 99214; G0463

== ENCOUNTER 2023-06-03 11:37 | Outpatient (CLI) | payer BC, SELFPAY ==
--- NOTE | 2023-06-03 11:41 | XR_ITS ---
FINAL REPORT CLINICAL HISTORY: Right foot Pain COMPARISON: None FINDINGS: RIGHT FOOT: Three views of the right foot were obtained. There is no acute fracture or dislocation. The joint spaces are intact. There is no soft tissue abnormality. IMPRESSION: No acute bony abnormality. Reviewed, Interpreted and Dictated by Lee Corcoran III, MD Transcribed by Aileen Barreto Authenticated and . [facility]
--- NOTE | 2023-06-03 11:41 | XR_ITS ---
FINAL REPORT CLINICAL HISTORY: Foot Pain FINDINGS: LEFT FOOT Three views of the left foot demonstrate no acute fracture or dislocation. The visualized joint spaces are normally aligned. There is a small plantar calcaneal spur. The soft tissues are unremarkable. IMPRESSION: No acute bony abnormality. Reviewed, Interpreted and Dictated by Lee Corcoran III, MD Transcribed by Linda Miles Authenticated and [facility]
== END 2023-06-03 23:59 ==
LOC: RAD 11:38
PROVIDERS: PCP Physician Assistant; Visit Provider Podiatrist
DX: M79.671 Pain in right foot (principal); M79.672 Pain in left foot
CPT/HCPCS: 73630

== ENCOUNTER 2023-06-15 12:29 | Emergency (ER) | payer BC, SELFPAY ==
[2023-06-15 13:34] VITALS: BMI 28.1
--- NOTE | 2023-06-15 13:34 | XR_ITS ---
PROCEDURE INFORMATION: Exam: XR Right Knee Exam date and time: 06/15/2023 1:32 PM Age: 53 years old Clinical indication: Pain; Knee; Right TECHNIQUE: Imaging protocol: Radiologic exam of the right knee. Views: 3 views. COMPARISON: CR XR KNEE RT 3V 06/01/2022 9:36 AM FINDINGS: Bones/joints: No acute fracture or dislocation. Moderate narrowing of the medial compartment, with osteophyte formation. Sharpening of the tibial spines. Mild patellar osteophytes. Soft tissues: Normal. IMPRESSION: Moderate osteoarthritis without significant change.
[2023-06-15 14:10] VITALS: BP 126/73; PULSE 64; RESP 18; TEMP 36.5; O2SAT 97; BMI 22.8
--- NOTE | 2023-06-15 14:46 | ED_ITS ---
Discharge Plan Disposition Patient Disposition: Home, Self-Care Condition: Good Prescriptions Prescriptions: New prednisone [prednisone] 20 mg tablet 20 mg PO BID Qty: 10 0RF No Action levalbuterol HCl 0.31 mg/3 mL solution for nebulization 0.31 mg INHALATION Q8H PRN (Reason: shortness of breath or wheezing) Qty: 75 12RF montelukast [Singulair] 10 mg tablet 10 mg PO HS levocetirizine [Xyzal] 5 mg tablet 5 mg PO DAILY pregabalin 75 mg capsule 75 mg PO BID Qty: 60 2RF nitroglycerin 0.3 mg tablet, sublingual 0.3 mg sublingual Q5M PRN (Reason: chest pain/esophageal spasms) Qty: 25 0RF Rx Instructions: do not exceed 3 doses per episode cholecalciferol (vitamin D3) 125 mcg (5,000 unit) capsule 125 mcg PO DAILY 90 Days Qty: 90 2RF red beet root-sour moise ext 250-0.5 mg tablet,chewable PO ergocalciferol (vitamin D2) 1,250 mcg (50,000 unit) capsule 1,250 mcg PO QWEEK Qty: 14 3RF pantoprazole 40 mg tablet,delayed release (DR/EC) See Rx Instructions .ROUTE .COMPLEX Qty: 60 3RF Dose Instruction: Take 1 tablet by mouth twice daily Rx Instructions: Take 1 tablet by mouth twice daily diclofenac sodium 75 mg tablet,delayed release (DR/EC) See Rx Instructions .ROUTE .COMPLEX Qty: 60 0RF Dose Instruction: Take 1 tablet by mouth twice daily Rx Instructions: Take 1 tablet by mouth twice daily duloxetine 60 mg capsule,delayed release(DR/EC) See Rx Instructions .ROUTE .COMPLEX Qty: 30 0RF Dose Instruction: Take 1 capsule by mouth once daily Rx Instructions: Take 1 capsule by mouth once daily nifedipine 10 mg capsule See Rx Instructions .ROUTE .COMPLEX Qty: 90 0RF Dose Instruction: TAKE 1 CAPSULE BY MOUTH THREE TIMES DAILY Rx Instructions: TAKE 1 CAPSULE BY MOUTH THREE TIMES DAILY estradiol 0.5 mg tablet 0.5 mg PO DAILY budesonide-formoterol [Symbicort] 160-4.5 mcg/actuation HFA aerosol inhaler 2 puff INHALATION BID cholecalciferol (vitamin D3) 50 mcg (2,000 unit) capsule 50 mcg PO DAILY methylprednisolone 4 mg Tablets,Dose Pack 4 mg PO DIRECTED 6 Days Qty: 21 0RF Rx Instructions: Take 1 pack as directed for 6 days Referrals Follow up/Referrals: Pia Rooney PA [Primary Care Provider] - See instructions Activity Restrictions/Add. Instructions Additional Instructions/Restrictions: Weightbearing as tolerated rest Ice with cold pack for 20 minutes remove may repeat for comfort every hour Efraín wrap for support and swelling no less in the shower. Be sure not too tight but not to lose either Elevate with ankle above your heart as much as possible to help reduce swelling and therefore pain Ibuprofen every 6 hours as needed for pain or inflammation. If needs something more you can take Tylenol every 4 hours as needed as long as her primary care has told he was okayed for you to take both. If improving any do not need to follow-up you can bring begin exercising 2-3 weeks after injury. Follow-up immediately if new or worsening symptoms or no noticeable improvement over the next 3-5 days. call ortho Clinical Impressions Clinical Impression: Knee joint pain Qualifiers: Laterality: right Qualified Code(s): M25.561 - Pain in right knee Instructions Patient Instructions: DI for Osteoarthritis Discharge ED Provider: Jurgen ([facility])Andrew [facility] HPI General Stated complaint: right knee pain, no accident Mode of Arrival: Ambulatory Source of Information: Patient Limitations: No Limitations Time Seen by Provider: 06/15/23 14:46 Description of Symptoms (Recalled from Triage Doc. by RN): PATIENT C/O RIGHT KNEE PAIN WITH WEIGHT BEARING THAT STARTED LAST NIGHT. NO KNOWN INJURY HEENT Symptoms (Recalled from RN notes): No Resp Symptoms (Recalled from RN notes): No Skin Symptoms (Recalled from RN notes): No MS Symptoms (Recalled from RN notes): Yes Functional Status (Recalled from RN notes): WNL History of Present Illness Provider Complaint: 53 YR OLD FEMALE PRESENTS FOR C/O RIGHT KNEE PAIN WITH WEIGHT BEARING THAT STARTED LAST NIGHT. NO KNOWN INJURY, HX OF ARHTRITIS Related Data Home Medications Medication Instructions Recorded Confirmed budesonide-formoterol HFA 160 2 puff inhalation BID Breathing 05/20/22 06/03/23 mcg-4.5 mcg/actuation aerosol problems inhaler (Symbicort) cholecalciferol (vitamin D3) 50 50 mcg PO DAILY Supplement 05/20/22 06/03/23 mcg (2,000 unit) capsule estradiol 0.5 mg tablet 0.5 mg PO DAILY HORMONE 08/22/22 06/03/23 levocetirizine 5 mg tablet (Xyzal) 5 mg PO DAILY 11/29/22 06/03/23 montelukast 10 mg tablet 10 mg PO HS 11/29/22 06/03/23 (Singulair) red beet root 250 mg-sour moise tab PO 06/03/23 06/03/23 extract 0.5 mg chewable tablet Previous Rx's Medication Instructions Recorded levalbuterol HCl 0.31 mg/3 mL 0.31 mg (3 mL) inhalation Q8H PRN 07/26/20 solution for nebulization shortness of breath or wheezing #75 mL ergocalciferol (vitamin D2) 1,250 1,250 mcg PO QWEEK Supplement #14 05/18/22 mcg (50,000 unit) capsule caps pregabalin 75 mg capsule 75 mg PO BID Supplement #60 caps 11/29/22 cholecalciferol (vitamin D3) 125 125 mcg PO DAILY 90 days #90 caps 01/31/23 mcg (5,000 unit) capsule pantoprazole 40 mg tablet,delayed See Rx Instructions .Route 02/26/23 release .COMPLEX #60 tabs nitroglycerin 0.3 mg sublingual 0.3 mg sublingual Q5M PRN chest 03/12/23 tablet pain/esophageal spasms #25 tabs diclofenac sodium 75 mg See Rx Instructions .Route 03/25/23 tablet,delayed release .COMPLEX #60 tabs duloxetine 60 mg capsule,delayed See Rx Instructions .Route 04/23/23 release .COMPLEX #30 ea methylprednisolone 4 mg tablets in 4 mg PO DIRECTED 6 days #21 tabs 05/19/23 a dose pack nifedipine 10 mg capsule See Rx Instructions .Route 06/05/23 .COMPLEX #90 caps prednisone 20 mg tablet 20 mg PO BID #10 tabs 06/15/23 Allergies Allergy/AdvReac Type Severity Reaction Status Date / Time amoxicillin [From AUGMENTIN] Allergy Intermediate I-ITCHING Verified 06/03/23 10:50 clavulanic acid Allergy Intermediate I-ITCHING Verified 06/03/23 10:50 [From AUGMENTIN] codeine [CODEINE] Allergy Unknown I-ITCHING Verified 06/03/23 10:50 morphine [MORPHINE] Allergy Unknown I-ITCHING,N Verified 06/03/23 10:50 /V tetracycline [TETRACYCLINE] Allergy Unknown I-ITCHING Verified 06/03/23 10:50 Worker's Comp Is this a Worker's Comp case?: No [facility] Disclaimer: The information contained in this section may have been updated after the patient was seen, as this information can be updated by other users. 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) H/O right heart catheterization H/O spinal fusion H/O: hysterectomy History of cholecystectomy History of colonoscopy with polypectomy History of esophagogastroduodenoscopy (EGD) History of sinus surgery History of tonsillectomy History of vaginectomy Family History , 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) Family history of cancer Family history of hypertension 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 , 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) Smoking Status: Current every day smoker tobacco type: cigarettes packs per day: 1 alcohol intake: current substance use type: denies use current occupational status: employed Travel in the last 8 weeks: None household members: spouse housing: house marital status: number of children: 3 education level: college 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 current occupational exposures/hazards: No caffeine: Yes special mahsa needs: No agree to transfusion: No do you feel safe at home: Yes victim of physical abuse: No victim of emotional abuse: No victim of sexual abuse: No would you like helpful sources: No ROS Obtained: Yes All systems reviewed & no additional complaints except as documented Constitutional Constitutional: Reports system reviewed and no additional complaints, except as documented Eyes Eyes: Reports system reviewed and no additional complaints, except as documented ENT Ears, Nose, Mouth, and Throat: Reports system reviewed and no additional complaints, except as documented Cardiovascular Cardiovascular: Reports system reviewed and no additional complaints, except as documented Respiratory Respiratory: Reports system reviewed and no additional complaints, except as documented Musculoskeletal Musculoskeletal: Reports system reviewed and no additional complaints, except as documented, Reports as per HPI, Reports arthralgias, Reports joint swelling and Reports limited range of motion Integumentary/Breasts Skin/Breast: Reports system reviewed and no additional complaints, except as documented Neurologic Neurologic: Reports system reviewed and no additional complaints, except as documented Endocrine Endocrine: Reports system reviewed and no additional complaints, except as documented Allergic/Immunologic Allergic/Immunologic: Reports system reviewed and no additional complaints, except as documented Physical Exam General General appearance: alert and in no apparent distress Head Head exam: atraumatic Eye Eye exam: Present normal appearance and PERRL ENT ENT exam: Present normal exam Respiratory Respiratory exam: Present normal lung sounds bilaterally Cardiovascular Cardiovascular exam: Present regular rate and normal rhythm Expanded Lower Extremity Exam Right: Leg image: 1. TENDERNESS Neurological Exam Neurological exam: Present alert Psychiatric Psychiatric exam: Present normal affect Skin Skin exam: Present warm and intact Medical Decision Making Medical Records Medical records reviewed: Yes I reviewed the patient's medical records. Lorenzo Inquiry Pt receiving controlled substance: No Lorenzo was queried for this patient: No Vital Signs: 06/15/23 14:10 Temperature 97.7 F Temperature Source Oral Pulse Rate [Right Brachial] 64 Respiratory Rate 18 Blood Pressure [Right Arm] 126/73 Blood Pressure Mean [Right Arm] 90 Blood Pressure Source [Right Arm] Automatic Cuff Blood Pressure Position [Right Arm] Sitting 02 Sat by Pulse Oximetry 97 Oxygen Delivery Method Room Air Lab Data Lab results reviewed: Yes I reviewed the patient's lab results. Orders (Tests/Meds): ORDERS Category Date Time Status Knee XR right 3 views [XR knee RT 3V] Stat Exams 06/15/23 13:34 Completed
[2023-06-15 14:56] VITALS: BP 126/73; PULSE 64; RESP 18; TEMP 36.5; O2SAT 97
== END 2023-06-15 15:07 | disposition home or self-care (01) ==
PROVIDERS: Emergency Provider Nurse Practitioner Family; PCP Physician Assistant
DX: M25.561 Pain in right knee (principal); F17.210 Nicotine dependence, cigarettes, uncomplicated; J44.9 Chronic obstructive pulmonary disease, unspecified; I11.0 Hypertensive heart disease with heart failure; I50.9 Heart failure, unspecified; K21.9 Gastro-esophageal reflux disease without esophagitis; E78.5 Hyperlipidemia, unspecified
CPT/HCPCS: 73562; 99212; 99214; G0463

== ENCOUNTER 2023-08-21 11:23 | Outpatient (CLI) | payer BC, SELFPAY ==
--- NOTE | 2023-08-21 11:34 | XR_ITS ---
FINAL REPORT CLINICAL HISTORY: pre-op, smoker, high blood pressure. COMPARISON: 03/09/2023 FINDINGS: No acute pulmonary density is evident. There is no evidence of effusion or other pleural disease. The mediastinum has a normal appearance. The cardiac silhouette is unremarkable. IMPRESSION: Unremarkable chest exam. Reviewed, Interpreted and Dictated by Talib Trinh MD Transcribed by Manjula Pop Authenticated and [facility]
[2023-08-21 11:37] LABS: Basophils # 0.1 K/mm3 (0-0.2); Basophils % 0.8 % (0.1-2.0); Eosinophils # 0.1 K/mm3 (0.0-0.4); Eosinophils % 0.9 % (0.1-12.0); Hematocrit 47.4 % (37.0-47.0); Hemoglobin 15.6 g/dL (12.2-16.2); Lymphocytes # 3.7 K/mm3 (0.7-4.5); Lymphocytes % 31.2 % (10-50); Mean Corpuscular Hemoglobin 31.2 pg (27.0-31.2); Mean Corpuscular Volume 94.8 fl (81-99); Mean Platelet Volume 8.4 fl (7.4-10.4); Monocytes # 0.6 K/mm3 (0.1-1.0); Monocytes % 4.7 % (1.7-9.3); Neutrophils # 7.5 K/mm3 (1.8-7.8); Neutrophils % 62.5 % (37.0-80.0); Platelet Count 289 K/mm3 (142-424); Red Cell Distribution Width 13.1 % (11.5-17.5)
--- NOTE | 2023-08-21 11:53 | ECG_ITS ---
APPROVED REPORT Exam: Resting ECG HR:70 bpm ECG Measurements Heart Rate 70 AXES [place] 143 P 50 QRSd 95 QRS 69 QT 398 T 40 QTc 418 Conclusion SINUS RHYTHM POSSIBLE RIGHT VENTRICULAR CONDUCTION DELAY [RSR (QR) IN V1/V2] BORDERLINE ECG UNCONFIRMED REPORT Electronically signed by : Mata Cole MD 08/22/2023 21:28:49
[2023-08-21 11:59] LABS: Hemoglobin A1C 5.6 % (4.0-6.0)
[2023-08-21 12:24] LABS: Alanine Aminotransferase 30 U/L (12-78); Albumin Level 4.7 g/dl (3.5-5.0); Albumin/Globulin Ratio 1.7 (1.1-1.8); Alkaline Phosphatase 96 U/L (38-126); Anion Gap 12.2 mEq/L (5-15); Aspartate Amino Transferase 29 U/L (14-36); Bilirubin,Total 0.7 mg/dl (0.2-1.3); Blood Urea Nitrogen 12 mg/dl (7-17); Calcium 10.1 mg/dl (8.4-10.2); Carbon Dioxide 30 mmol/L (22.0-30.0); Chloride 105 mmol/L (98-107); Estimated Glomerular Filt Rate 74 ml/min (>60); GFR (African American) 90 ML/MIN (>60); Globulin 2.7 g/dL (1.3-3.2); Glucose 97 mg/dl (74-100); Potassium 4.2 mmoL/L (3.5-5.1); Sodium 143 mmol/L (136-145); Total Protein,Serum 7.4 g/dl (6.3-8.2)
== END 2023-08-21 23:59 | disposition home or self-care (01) ==
LOC: LAB 11:24
PROVIDERS: PCP Physician Assistant; Visit Provider Orthopaedic Surgery
DX: Z01.818 Encounter for other preprocedural examination (principal)
CPT/HCPCS: 36415; 71046; 80053; 83036; 85025; 93005

== ENCOUNTER 2023-09-03 06:17 | Observation (INO) | payer BC, SELFPAY ==
[2023-08-29 11:51] VITALS: BMI 24.4
--- NOTE | 2023-09-02 12:28 | SUR.PREOP ---
Elevated WBC reported to SPRING Whipple in Lm's office. She will let him know.
[2023-09-03] VITALS (19 sets, daily range): BP systolic 113–134; BP diastolic 68–93; PULSE 71–86; RESP 16–24; TEMP 36.3–36.7; O2SAT 95–98; BMI 24.4
[2023-09-03] MEDS: LACTATED RINGERS 1000ML 1,000 ML 25 ML IV (06:25)
--- NOTE | 2023-09-03 07:04 | P.PNANES_ITS ---
[facility] Disclaimer: The information contained in this section may have been updated after the patient was seen, as this information can be updated by other users. 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 LGSIL Pap smear of vagina Menopausal symptoms History of genital warts Interstitial cystitis (chronic) with hematuria Osteoarthritis Dyspnea Dysphagia Anxiety Esophageal spasm Hyperlipidemia Vitamin D deficiency Edema Plantar wart Influenza A Sleep apnea Hypertension GERD (gastroesophageal reflux disease) CHF (congestive heart failure) COPD (chronic obstructive pulmonary disease) Surgical History History of esophagogastroduodenoscopy (EGD) History of vaginectomy History of colonoscopy with polypectomy History of tonsillectomy H/O right heart catheterization History of cholecystectomy History of sinus surgery H/O spinal fusion H/O: hysterectomy has right ovary Family History Other Family history of cancer Family history of hypertension 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 Smoking Status: Current every day smoker tobacco type: cigarettes packs per day: 1 alcohol intake: never substance use type: denies use current occupational status: employed Travel in the last 8 weeks: None household members: spouse housing: house marital status: number of children: 3 education level: college 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 current occupational exposures/hazards: No caffeine: Yes special mahsa needs: No agree to transfusion: No do you feel safe at home: Yes victim of physical abuse: No victim of emotional abuse: No victim of sexual abuse: No would you like helpful sources: No [facility] Anesthesia Checklist Patient Identification Patient Identification: Arm Band and Family Structural Data Admitted From: Home Planned Operative Procedure/s: Right Total Knee Replacement Consent for Planned Operative Procedure(s) Verified: Yes Verified Documents: Surgical Consent and History and Physical NPO Status Verified Time NPO: 00:00 Additional verifications Patient : No Anesthesia Reactions: No Hx Blood Transfusions: No Blood Transfusion Reaction: No Cephalosporin Allergy: No Previous Colonoscopy: No Airway Assessment Mallampati Score:: Class III C-Spine Mobility Assessed: Yes TMJ Mobility Assessed: Yes Dentition: Good Dentition Neurological Assessment Level of Consciousness: Awake, Alert, Appropriate and Follows Commands Hx Seizures: No Numbness or tingling in extremities: No Anesthesia Plan Anesthesia Risk discussed: Yes ASA Class: II Anesthesia Type: MAC w/Spinal Preoperative Comments Pre-Operative Comments: Smoker. Hypertensio. Esophageal spasm. GERD. Social drinker. Back surgery L5, S1.
[2023-09-03] MEDS: ROPIVACAINE 0.5% 30ML VIAL 150 MG (08:23)
[2023-09-03] MEDS: MORPHINE PF 10 MG/10ML AMP (08:24)
[2023-09-03] MEDS: CEFAZOLIN SODIUM 1 GM in 0.9 % SODIUM CHLORIDE 50 ML IV (08:25)
[2023-09-03] MEDS: TRANEXAMIC ACID IV ×2 (08:26→09:22)
[2023-09-03] MEDS: SODIUM CHLORIDE 0.9% IV ×2 (08:26→09:22)
[2023-09-03] MEDS: ONDANSETRON 4MG/2ML VIAL 4 MG IV (09:55)
--- NOTE | 2023-09-03 09:58 | EXP.ANES.I ---
[facility] Anesthesia Record Part I Anesthesia Record I Intake, IV Amount: 1,800 Hydration: Adequate Estimated blood loss (mL): 30 Urine output (mL): 0 Blood Products used (#): none Blood Pressure: 120/68 SaO2: 97 Pulse Rate: 81 Airway Patency: Patent Respiratory Rate: 24 Temperature: 97.9 F Patient is:: Drowsy and Stable Stable to PACU at:: 09:48
--- NOTE | 2023-09-03 09:58 | EXP.OP.NOTE ---
Date of procedure: 09/03/23 Pre-op Diagnosis:: Right knee osteoarthritis Post-op Diagnosis:: Right knee osteoarthritis Procedure performed:: Right total knee arthroplasty Surgeon:: Gutierrez Amato MD Rn Ambulatory(s):: None PARTNER MARKETING MANAGER:: Drew Hansen Anesthesia: regional, local and spinal Estimated blood loss (mL): 5 Clinical Note:: Yajaira is a very pleasant 53-year-old female with activity limiting right knee pain secondary to osteoarthritis that is affecting her quality of life. 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 History of an L5-S1 fusion. She takes pregabalin, duloxetine and diclofenac for fibromyalgia and osteoarthritis. Reports cortisone injections have not helped in the past and a Monovisc injection in May 2022 made her knee pain worse. She is not interested in any further injections. Right knee x-rays 06/11/2023 reveal moderate to severe tricompartmental degenerative changes in a varus knee with complete loss of medial joint space and marginal osteophyte formation. No acute findings. At this point she is a reasonable candidate for right total knee replacement. We discussed all the risks, benefits and alternatives to right total knee replacement and she agreed to proceed. Surgical consent form was signed. Operative findings:: Right knee severe tricompartmental degenerative changes with varus deformity. Operative note:: The patient was seen in the preoperative holding area. The right knee was marked to confirm the correct operative site. She was seen by anesthesia. She received Ancef 2 g IV prophylactic antibiotics within 1 hour of incision time and 1 g of IV TXA just prior to the incision and as we were closing to help minimize bleeding. She was brought back to the operating room. Spinal anesthesia performed without difficulty. Sedation given throughout the case. Nonsterile tourniquet was applied to the right thigh and a bump was placed underneath the right hip. The right lower extremity was prepped and draped in usual sterile fashion. Timeout was performed to confirm right total knee replacement patient Yajaira Reed. The right lower extremity was exsanguinated with an Esmarch and tourniquet was inflated to 300 mmHg. With the knee flexed a midline incision was made with a 10 blade scalpel. A medial parapatellar arthrotomy was made with a 10 blade scalpel. The patella was everted. Infrapatellar fat pad and anterior femoral fat pads were excised with the Bovie. Medial release was performed with the Bovie electrocautery. Medial and lateral Z retractors were placed. Marginal osteophytes were removed with the rongeur. We then drilled the distal femur and placed the intramedullary distal femoral cutting guide set at a 5 degree valgus cut. Cutting guide was pinned in place and this cut was made with oscillating saw removing approximately centimeter of bone for the distal femur. The distal femur was then sized to a size 5 set at 3 degrees of external rotation. The 4-in-1 cutting guide was pinned in place and anterior and posterior cuts and chamfer cuts were made with oscillating saw. We then turned our attention to the tibia. PCL retractor and medial and lateral Hohmann retractors were placed. Using the extramedullary tibial cutting guide set at a 3 degree posterior slope we removed approximately 5 mm of bone from the low medial side and a centimeter from the high lateral side. We then removed the medial and lateral menisci. With a 9 mm block we achieved full extension with excellent alignment. We then finished preparation of the tibia sized with the tibia sized to a 3 tibial tray which was pinned in place. This was centered off the medial third of the tibial tubercle. We then impacted the punch for the tibia. We placed a size 5 trial femur and elected to use a narrow for the final implant. We made the box cut with the reamer and punch. We then placed a 9 mm trial poly. We made the patellar cut removing approximately 9 mm of bone from a 20 mm thick patella. We made drill holes for a size 29 patellar button. With the trial button in place there was excellent tracking. We achieved full extension and flexion with excellent alignment. Trial components removed and final components opened on the back table. The knee was copiously irrigated with Pulsavac lavage and thoroughly dried. We placed a bone plug in the distal femoral drill hole. We injected 20 cc of half percent Naropin and 5 mg of morphine into the posterior capsule for local anesthetic. Cement was mixed on the back table. We applied cement to the cut tibial and femoral surfaces and impacted in place the final size 3 tibia and size 5 narrow femur. Excess cement was removed with a [place]. We placed the 9 mm poly and it was seen to be fully engaged in the tibial tray. We then applied cement to the patella and placed the 29 thin patellar button held in place with the clamp while the cement cured. Once the cement was fully cured we then irrigated the knee with dilute Betadine solution and then Pulsavac lavage. We then proceeded with closure. The deep fascia was closed with #1 strata fix barbed suture. The dermis was closed with interrupted 2-0 Vicryl sutures. The skin was closed with a 3 oh strata fix barbed subcuticular suture. We then applied a sterile dressing with Prineo mesh dressing with Dermabond glue. We then applied 4 x 4's, ABD, soft roll and an Efraín bandage. Tourniquet was deflated at 77 minutes. Anesthesia reversed without difficulty and transferred to recovery in stable condition. Postoperative plan: Anesthesia performed an adductor canal block for perioperative pain control. Admit to the hospitalist service for medical management. Remove the soft dressing tomorrow morning. Mobilize as tolerated with PT and OT. Initiate baby aspirin twice daily tomorrow for DVT prophylaxis. digital production manager for home equipment needs and physical therapy. Follow-up in the office in 3 weeks on Sunday 09/24. Tourniquet time (min): 77 Condition: stable Disposition: PACU Specimens:: Implants: [employer] posterior stabilized total knee arthroplasty with a size 5 narrow femur, 3 tibia, 9 polyethylene and 29 thin patella No specimens Complications:: None
--- NOTE | 2023-09-03 10:19 | XR_ITS ---
FINAL REPORT CLINICAL HISTORY: Status post right knee replacement COMPARISON: 06/01/2022 FINDINGS: Two views of the right knee were obtained. There are postoperative changes from knee arthroplasty. The hardware is intact. There is no evidence of fracture or dislocation. The bony alignment is normal. The joint spaces are preserved. There is no evidence of joint effusion. Soft tissue air is noted. IMPRESSION: Postoperative changes. Soft tissue air. Reviewed, Interpreted and Dictated by Lee Corcoran III, MD Transcribed by Aileen Barreto Authenticated and [facility]
--- NOTE | 2023-09-03 10:26 | SUR.PHASEI ---
1017- detailed report called to melita condon on [facility] at this time 1020- pt left in stable condition with melita condon in pt room. Vss, dressings cdi, family at bedside
[2023-09-03] MEDS: 0.9 % SODIUM CHLORIDE 1000ML 1,000 ML 75 ML IV (10:38)
--- NOTE | 2023-09-03 12:07 | HMH.PHAINT1 ---
Pharmacy Intervention Comments: MEDICATION RECONCILIATION COMPLETED ON PATIENT USING EXTERNAL FILL HISTORY FROM PHARMACY AND LIST FROM PCP OFFICE. -BARRIE REED, JOAND
--- NOTE | 2023-09-03 12:44 | EXP.ANES.II ---
[facility] Anesthesia Record Part II Anesthesia Record Part II Discharge Time: 10:18 Destination: Medical Surgical Department PACU nurse assessment reviewed?: Yes Patient Condition:: Good Anesthesia Complications:: None Swallowing reflex intact?: Yes Airway Patency: Patent Cyanosis?: No Blood Pressure: 125/74 SaO2: 96 Respiratory Rate: 16 Pulse Rate: 74 Temperature: 98 F Mental Status: Alert & Oriented Pain level:: 0 Nausea and/or vomitting:: None Intake, IV Amount: 0 Hydration: Adequate
--- NOTE | 2023-09-03 13:39 | HMH.PTEV ---
Physical Therapy Evaluation Rehab PT IP Evaluation Start: 09/03/23 10:12 Freq: ONCE Status: Active Protocol: Document 09/03/23 13:34 SRIDEVI (Rec: 09/03/23 13:38 SRIDEVI [id number]) Subjective/History History History Pt is a 53 y/o female who presents s/p R TKA. Subjective Subjective Pt lives with . Pt IND with ADLs and functional mobility prior to surgery. Intermittent rollator use during ambulation. PT provided pt with TKA HEP handout and educated on importance of therex. New diagnosis of cancer in past 12 No months? Rehab PT IP Eval Objective Appearance Patient Behavior Appropriate Patient Orientation Person,Place,Situation Difficulty following instructions none Speech Pattern Clear Ambulation Patient Able to Ambulate Yes Ambulation Observation IP General Gait Pattern Observation Antalgic Gait Ambulation Distance (feet) 20 Ambulation Assistive Device Rolling Walker Ambulation Ability Contact Guard/Hand Hold, Minimal x 1 (25% assist) Balance Ability to Arise Able, uses arms to help Sitting Balance Steady, safe Standing Balance Steady, wide stance Transfers Bed Transfer Ability Supervision/Stand by Chair Transfer Ability Supervision/Stand by Sit to Stand Bed Transfer Ability Contact Guard/Hand Hold Rehab PT IP prob,goals,plan Problems Date of Evaluation: 09/03/23 PT IP Problems Bed Mobility,Transfers,Gait, Balance,Self care,Safety Rehab Potential Rehab Potential Good Equipment Needs Assistive Devices Rolling / Wheeled Walker Plan PT Intervention Plan Bed Mobility,Transfers,Gait, Balance,Self care,Safety, Therapeutic Exercise Other Intervention Plan 1-2 times PT Plan Frequency Daily Duration LOS Discharge Goals Bed Transfer Ability Independent Sit to Stand Chair Transfer Ability Independent Ambulation Assistive Device Rolling Walker Ambulation Distance (feet) 50 Discharge Plan PT Discharge Plan Initial physical therapy evaluation performed. Patient presents below baseline at this time in functional mobility, transfers, gait, and strength. Pt would benefit from skilled PT while at [facility] to prevent further functional decline and maximize safety with mobility. Pt safe to d/c home when deemed medically necessary d/t current level of mobility, home set-up, and family support. PT recommending home health PT services to address deficits. Eval Complexity Eval Charge Codes 34176 - Low Complexity PHYSICIAN CERTIFICATION: I certify the specified therapy services for Yajaira Reed are required, authorized, and reviewed every 30 days.
--- NOTE | 2023-09-03 13:55 | HMH.OTEV ---
OT Inpatient Evaluation Rehab OT IP Evaluation Start: 09/03/23 10:12 Freq: ONCE Status: Active Protocol: Document 09/03/23 13:34 RMARSHALL (Rec: 09/03/23 13:55 RMARSHALL Laptop) Rehab OT IP Assessment Subjective History Pt is a 53 year old female who was admitted to [facility] on 2023 following a Right total knee arthroplasty. Prior to being admitted, pt's activity was limited right knee pain secondary to osteoarthritis that is affecting her quality of life. 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 History of an L5- S1 fusion. Pt takes pregabalin, duloxetine and diclofenac for fibromyalgia and osteoarthritis. Reports cortisone injections have not helped in the past and a Monovisc injection in May 2022 made the knee pain worse . Pt is not interested in any further injections. Right knee x-rays 06/11/2023 reveal moderate to severe tricompartmental degenerative changes in a varus knee with complete loss of medial joint space and marginal osteophyte formation. No acute findings. Subjective Pt was supine in bed when therapy entered room. Pt was agreeable to participate in OT evaluation this afternoon. Pt was oriented X 3 (person, place, birthday). Pt reported prior to being admitted they were able to drive. Pt reports she lives in a modular home with . Pt reports has built a ramp for the home, but there are steps to get into the home. Pt also reported they were able to cook, clean, dress self, and bathe with some assistance from . Pt then agreed to stand for evaluation and completed bed mobility by scooting to get from supine to sitting on EOB with SBA. Pt then completed a sit to stand transfer with rollator, Min Assist. Pt then sat back down and stated they needed to go to the bathroom. Pt then completed another sit to stand transfer with rollator, Min Assist, then walked to bathroom with rollator, Min Assist. Pt then completed another sit to stand transfer with rollator, Min Assist from toilet and walked back to sit in chair. Pt was left with call button and all other needs within reach. Objective Patient Orientation Person,Place,Name,Birthday Right Upper Extremity Gross ROM WNL Left Upper Extremity Gross ROM WNL Bed Mobility bed mobility-scooting,bed mobility - supine/sit Assist Level Minimal x 1 (25% assist) Transfer Training Sit/Stand Transfer Assist Level Minimal x 1 (25% assist) Performing Toilet Hygiene Ability Contact Guard Overall Commode/Toilet Transfer Ability Minimal Assistance Commode/Toilet Transfer Technique Sit to/from Ambulatory Rehab OT IP prob,goals,plan Problems Date of Evaluation: 09/03/23 OT IP Problems Bed Mobility,Transfers,Balance ,Self care,Safety Rehab Potential Rehab Potential Good Equipment Needs Assistive Devices Rolling / Wheeled Walker Plan OT intervention Plan Bed Mobility,Transfers,Balance ,Self care,Safety,Therapeutic Exercise OT Plan Frequency Daily Duration LOS Discharge Goals Bed Mobility Ability Standby Assistance Sit to Stand Chair Transfer Ability Contact Guard/Hand Hold Chair Transfer Ability Contact Guard/Hand Hold Chair Transfer Technique Sit to/from Ambulatory Chair Transfer Assistive Devices Rolling Walker Feeding Ability Assist with Tray Set Up Lower Body Dressing Ability Moderate Assistance Upper Body Dressing Ability Contact Guard Bathing Ability Moderate Assistance Performing Toilet Hygiene Ability Independent Overall Commode/Toilet Transfer Ability Contact Guard Commode/Toilet Transfer Technique Sit to/from Ambulatory Commode/Toilet Transfer Assistive Raised Toilet Seat Devices Oral Care Assist Standby Assistance Decrease in Endurance No Discharge Plan OT Discharge Plan Pt will continue to be seen for OT services while at [facility]. Pt can return home with husbands assistance once she is medically stable. Pt would benefit from HH OT evaluation and/or Outpatient PT evaluation. Continued skilled therapy is important in order for patient to improve strength safety, endurance, ADL independence, and functional transfers to reach PLOF. Eval Complexity Eval Charge Codes 33104 - Moderate Complexity PHYSICIAN CERTIFICATION: I certify the specified therapy services for Yajaira Reed are required, authorized, and reviewed every 30 days.
--- NOTE | 2023-09-03 14:26 | SW/DCPLANNER ---
Addendum entered by Catalina Nice 09/04/23 09:16: Patient will be responsible for 20% co pay for home health services. Per Marina barone/ Dor[facility] the cost will be roughly $45 per visit. Patient stated that she prefer to go home w/ her and return back to [facility] outpatient rehab. Original Note: I spoke w/ this patient regarding plans once medically stable for discharge. PT recommended patient returning home w/ home health services. Patient is agreeable to home health at this time and prefers to use [facility]. Patient information/order will be faxed to Marina barone/ Dorota today. Patient also stated that she has all DME at home including a cane, walker, BSC and shower chair. Patient will discharge home tomorrow pending no setbacks.
--- NOTE | 2023-09-03 17:18 | PC.NURSE ---
Addendum entered by Radha Bello RN 09/03/23 17:49: MD application consultant Loyd notified of situation at [id number]. He stated to make a not and the patient should be fine Original Note: Pt asked tech to unhook her IV to take a walk. Tech told pt that she had to have the nurse do it. When this rn went into the room the pt's had unhooked her IV so pt could go to the bathroom. This RN educated pt that they could not touch IV pump and unhook IV tubing. Pt v/u. Pt then asked this rn to take a walk. This RN stated that she had to have someone walk with her since she had surgery this AM. Pt v/u. This rn and the tech did not see pt round the corner. This RN, the tech and the charge nurse walked off the unit to find pt. Pt was found out in the front parking lot in her truck with her . This RN educated pt that she could not leave the unit. Pt verbalized that someone told her that she was allowed to go outside. Pt stated that other hospitals she has stayed in she has been able to do whatever she wants. Pt is currently back on second floor in her room and has been educated that she cannot leave the unit to walk but is able to walk around the unit.
--- NOTE | 2023-09-03 17:36 | EXP.HP ---
History of Present Illness *Admission Date: 09/03/23 *Reason for visit:: Knee pain [facility] Disclaimer: The information contained in this section may have been updated after the patient was seen, as this information can be updated by other users. 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 LGSIL Pap smear of vagina Menopausal symptoms History of genital warts Interstitial cystitis (chronic) with hematuria Osteoarthritis Dyspnea Dysphagia Anxiety Esophageal spasm Hyperlipidemia Vitamin D deficiency Edema Plantar wart Influenza A Sleep apnea Hypertension GERD (gastroesophageal reflux disease) CHF (congestive heart failure) COPD (chronic obstructive pulmonary disease) Surgical History History of esophagogastroduodenoscopy (EGD) History of vaginectomy History of colonoscopy with polypectomy History of tonsillectomy H/O right heart catheterization History of cholecystectomy History of sinus surgery H/O spinal fusion H/O: hysterectomy has right ovary Family History Other Family history of cancer Family history of hypertension 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 (Updated 09/03/23 @ 10:54 by Radha Bello RN) Smoking Status: Current every day smoker tobacco type: cigarettes packs per day: 1 alcohol intake: never substance use type: denies use current occupational status: employed Travel in the last 8 weeks: None household members: spouse housing: house marital status: number of children: 3 education level: college 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 current occupational exposures/hazards: No caffeine: Yes special mahsa needs: No agree to transfusion: No do you feel safe at home: Yes victim of physical abuse: No victim of emotional abuse: No victim of sexual abuse: No would you like helpful sources: No Review of Systems Review of Systems Review of systems:: pertinent systems reviewed and negative unless documented below Meds Home Medications and Allergies Home Medications Medication Instructions Recorded Confirmed Type estradiol 0.5 mg tablet 0.5 mg PO DAILY 08/22/22 09/03/23 History levocetirizine 5 mg tablet (Xyzal) 5 mg PO DAILY 11/29/22 09/03/23 History montelukast 10 mg tablet 10 mg PO HS 11/29/22 09/03/23 History (Singulair) cholecalciferol (vitamin D3) 125 125 mcg PO DAILY 90 days #90 caps 01/31/23 09/03/23 Rx mcg (5,000 unit) capsule nitroglycerin 0.3 mg sublingual 0.3 mg sublingual Q5M PRN chest 03/12/23 09/03/23 Rx tablet pain/esophageal spasms #25 tabs red beet root 250 mg-sour omise 10 tab PO DAILY 06/03/23 09/03/23 History extract 0.5 mg chewable tablet duloxetine 60 mg capsule,delayed 60 mg PO DAILY #90 ea 07/11/23 09/03/23 Rx release aspirin 81 mg tablet,delayed 81 mg PO BID #60 tabs 09/03/23 09/03/23 Rx release (Adult Low Dose Aspirin) ergocalciferol (vitamin D2) 1,250 1,250 mcg PO WEEKLY Supplement 09/03/23 09/03/23 History mcg (50,000 unit) capsule fluticasone 250 mcg-salmeterol 50 1 ea inhalation BID 09/03/23 09/03/23 History mcg/dose blistr powdr for inhalation levalbuterol HCl 0.63 mg/3 mL 0.63 mg inhalation QIDP PRN 09/03/23 09/03/23 History solution for nebulization Wheezing nifedipine 10 mg capsule 10 mg PO TID 09/03/23 09/03/23 History oxycodone 5 mg tablet 5 mg PO Q4HP PRN Moderate Pain 09/03/23 09/03/23 History (Scale Score 5-6) pantoprazole 40 mg tablet,delayed 40 mg PO BID 09/03/23 09/03/23 History release pregabalin 75 mg capsule 75 mg PO BID 09/03/23 09/03/23 History New Prescriptions to Start Prescriptions: Allergies Allergy/AdvReac Type Severity Reaction Status Date / Time amoxicillin [From AUGMENTIN] Allergy Intermediate I-ITCHING Verified 09/03/23 06:22 clavulanic acid Allergy Intermediate I-ITCHING Verified 09/03/23 06:22 [From AUGMENTIN] codeine [CODEINE] Allergy Unknown I-ITCHING Verified 09/03/23 06:22 morphine [MORPHINE] Allergy Unknown I-ITCHING,N Verified 09/03/23 06:22 /V tetracycline [TETRACYCLINE] Allergy Unknown I-ITCHING Verified 09/03/23 06:22 Exam Data for Last 24 hours Vital signs and Labs for Last 24 Hours: Temp Pulse Resp BP Pulse Ox O2 Del Method 97.6 F 78 16 113/74 96 Room Air 09/03/23 11:00 09/03/23 15:15 09/03/23 15:15 09/03/23 15:15 09/03/23 15:15 09/03/23 15:15 I & O for Last 24 hours: Intake & Output 08/31/23 09/01/23 09/02/23 09/03/23 23:59 23:59 23:59 23:59 Intake Total 2219 / 0 Output Total 0 / 0 Balance 2219 Weight 66.678 kg Constitutional Constitutional: no acute distress *Routine HEENT Exam Head: Present normocephalic Eye: Present EOMI and PERRL ENT: Present mucous membranes moist *Routine Neck Exam Neck: Present supple; Absent lymphadenopathy *Routine Respiratory Exam Respiratory: Present CTA bilaterally *Routine Cardiovascular Exam Cardiovascular: Present RRR *Routine Abdominal Exam Abdominal: Present soft and normoactive bowel sounds; Absent tenderness *Routine Rectal Exam Rectal:: deferred *Routine Genitalia Exam Genitalia:: deferred *Routine Extremities Exam Extremities: Absent cyanosis, clubbing or edema *Routine Skin Exam Skin: Present warm; Absent rash *Routine Neurological Exam Neurological: Present alert and oriented X3 Assessment and Plan *Assessment and plan (1) Knee joint pain: Status: Acute Qualifiers: Laterality: right Qualified Code(s): M25.561 - Pain in right knee Category: Medical Code(s): M25.569 - Pain in unspecified knee (2) Exostosis of both feet: Status: Acute Category: Medical Code(s): M89.8X7 - Other specified disorders of bone, ankle and foot (3) Pain in surgical scar: Status: Acute Category: Medical Code(s): R52 - Pain, unspecified; L90.5 - Scar conditions and fibrosis of skin (4) Callus of foot: Status: Acute Category: Medical Code(s): L84 - Corns and callosities (5) Plantar fascial fibromatosis of right foot: Status: Acute Category: Medical Code(s): M72.2 - Plantar fascial fibromatosis (6) Gastrocnemius equinus of right lower extremity: Status: Acute Category: Medical Code(s): M62.461 - Contracture of muscle, right lower leg Plan Yajaira is a very pleasant 53-year-old female with activity limiting right knee pain secondary to osteoarthritis that is affecting her quality of life. 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 History of an L5-S1 fusion. She takes pregabalin, duloxetine and diclofenac for fibromyalgia and osteoarthritis. Reports cortisone injections have not helped in the past and a Monovisc injection in May 2022 made her knee pain worse. She is not interested in any further injections. Right knee x-rays 06/11/2023 reveal moderate to severe tricompartmental degenerative changes in a varus knee with complete loss of medial joint space and marginal osteophyte formation. R knee replacement s/p surgery discussed with orthopedics ASA 81mg BID PT/OT consult
[2023-09-03] MEDS: CEFAZOLIN SODIUM 2 GM in 0.9 % SODIUM CHLORIDE 100 ML IV (19:13)
[2023-09-03] MEDS: FLUTICASONE/SALMETEROL 250/50MCG DISKUS 1 PUFF IH (20:20)
[2023-09-03] MEDS: PANTOPRAZOLE 40MG TABLET 40 MG PO (21:41)
[2023-09-03] MEDS: MONTELUKAST SODIUM 10MG TAB 10 MG PO (21:41)
[2023-09-03] MEDS: NIFEdipine 10MG CAPSULE 10 MG PO (21:41)
[2023-09-03] MEDS: PREGABALIN 25MG CAPSULE 75 MG PO (21:41)
[2023-09-03] MEDS: KETOROLAC 30MG/ML VIAL 15 MG IV (22:48)
[2023-09-04] VITALS: BP 126/70; PULSE 68; RESP 16; TEMP 36.5; O2SAT 97
[2023-09-04] MEDS: OXYCODONE 5MG IMMEDIATE RELEASE TABLET 5 MG PO ×2 (00:20→01:10)
[2023-09-04] MEDS: CEFAZOLIN SODIUM 2 GM in 0.9 % SODIUM CHLORIDE 100 ML IV (00:36)
--- NOTE | 2023-09-04 01:17 | PC.NURSE ---
2nd dose of oxycodone given
[2023-09-04 04:00] VITALS: BP 109/71; PULSE 67; RESP 17; TEMP 35.9; O2SAT 98; BMI 24.5
[2023-09-04] MEDS: 0.9 % SODIUM CHLORIDE 1000ML 1,000 ML 75 ML IV (04:22)
[2023-09-04] MEDS: FLUTICASONE/SALMETEROL 250/50MCG DISKUS 1 PUFF IH (06:12)
--- NOTE | 2023-09-04 06:45 | PC.NURSE ---
pt ambulating well with walker. prn meds given
[2023-09-04 06:47] LABS: Anion Gap 11.2 mEq/L (5-15); Blood Urea Nitrogen 14 mg/dl (7-17); Calcium 9.1 mg/dl (8.4-10.2); Carbon Dioxide 29 mmol/L (22.0-30.0); Chloride 106 mmol/L (98-107); Creatinine Clearance Estimated 84 mL/min (50-200); Estimated Glomerular Filt Rate 74 ml/min (>60); GFR (African American) 90 ML/MIN (>60); Glucose 110 mg/dl (74-100); Potassium 4.2 mmoL/L (3.5-5.1); Sodium 142 mmol/L (136-145)
[2023-09-04 06:56] LABS: Basophils % 0.2 % (0.1-2.0); Eosinophils % 0.1 % (0.1-12.0); Hematocrit 37.1 % (37.0-47.0); Hemoglobin 11.8 g/dL (12.2-16.2); Lymphocytes # 2.4 K/mm3 (0.7-4.5); Lymphocytes % 14.6 % (10-50); Mean Corpuscular HGB Conc 31.9 g/dL (31.8-35.4); Mean Corpuscular Hemoglobin 31.1 pg (27.0-31.2); Mean Corpuscular Volume 97.6 fl (81-99); Mean Platelet Volume 8.9 fl (7.4-10.4); Monocytes # 0.7 K/mm3 (0.1-1.0); Neutrophils # 13.6 K/mm3 (1.8-7.8); Neutrophils % 81.2 % (37.0-80.0); Platelet Count 175 K/mm3 (142-424); Red Cell Distribution Width 13.4 % (11.5-17.5); White Blood Count 16.7 K/mm3 (4.8-10.8)
[2023-09-04 06:58] LABS: MANUAL DIFFERENTIAL MANUAL DIFFERENTIAL (MANUAL DIFF)
[2023-09-04 07:58] VITALS: BP 112/64; PULSE 70; RESP 16; TEMP 36.7; O2SAT 97
[2023-09-04 08:00] VITALS: O2SAT 97
[2023-09-04] MEDS: NIFEdipine 10MG CAPSULE 10 MG PO (08:12)
[2023-09-04] MEDS: DULOXETINE 30MG CAPSULE.DR 60 MG PO (08:12)
[2023-09-04] MEDS: ASPIRIN EC 81MG TABLET 81 MG PO (08:12)
[2023-09-04] MEDS: PREGABALIN 25MG CAPSULE 75 MG PO (08:12)
[2023-09-04] MEDS: estradioL 1 MG TABLET 0.5 MG PO (08:13)
[2023-09-04] MEDS: PANTOPRAZOLE 40MG TABLET 40 MG PO (08:13)
[2023-09-04 08:31] LABS: Lymphocytes % 22 % (10-50); Monocytes % 1 % (2-9); Neutrophils % 77 % (42-76); Platelet Estimate Normal; RBC Morphology Normal; Total Cells Counted 100
[2023-09-04] MEDS: KETOROLAC 30MG/ML VIAL 15 MG IV (11:51)
[2023-09-04 12:00] VITALS: BP 125/73; PULSE 69; RESP 16; TEMP 36.6
--- NOTE | 2023-09-04 12:39 | P.DS_ITS ---
General Admission date:: 09/03/23 Discharge date: 09/04/23 HPI HPI HPI: Yajaira is a very pleasant 53-year-old female with activity limiting right knee pain secondary to osteoarthritis that is affecting her quality of life. 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 History of an L5-S1 fusion. She takes pregabalin, duloxetine and diclofenac for fibromyalgia and osteoarthritis. Reports cortisone injections have not helped in the past and a Monovisc injection in May 2022 made her knee pain worse. She is not interested in any further injections. Right knee x-rays 06/11/2023 reveal moderate to severe tricompartmental degenerative changes in a varus knee with complete loss of medial joint space and marginal osteophyte formation. Hospital Course Hospital Course Hospital Course: Yajaira is a very pleasant 53-year-old female with activity limiting right knee pain secondary to osteoarthritis that is affecting her quality of life. 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 History of an L5-S1 fusion. She takes pregabalin, duloxetine and diclofenac for fibromyalgia and osteoarthritis. Reports cortisone injections have not helped in the past and a Monovisc injection in May 2022 made her knee pain worse. She is not interested in any further injections. Right knee x-rays 06/11/2023 reveal moderate to severe tricompartmental degenerative changes in a varus knee with complete loss of medial joint space and marginal osteophyte formation. R knee replacement s/p surgery, tolerated well, ok to DC from orthopedic standp oint ASA 81mg BID x 30 days Stable for discharge from medical standpoint time spent 39 mins Exam Data for Last 24 hours Vital signs and Labs for Last 24 Hours: Temp Pulse Resp BP Pulse Ox O2 Del Method 98 F 69 16 125/73 97 Room Air 09/04/23 12:00 09/04/23 12:00 09/04/23 12:00 09/04/23 12:00 09/04/23 08:00 09/04/23 10:42 Laboratory Results - last 24 hr 09/04/23 05:28: WBC 16.7 H, RBC 3.80 L, Hgb 11.8 L, Hct 37.1, MCV 97.6, MCH 31.1, MCHC 31.9, RDW 13.4, Plt Count 175, MPV 8.9, Neut % (Auto) 81.2 H, Lymph % (Auto) 14.6, Fleming % (Auto) 4.0, Eos % (Auto) 0.1, Baso % (Auto) 0.2, Neut # (Auto) 13.6 H, Lymph # (Auto) 2.4, Fleming # (Auto) 0.7, Eos # (Auto) 0.0, Baso # (Auto) 0.0, Total Counted 100, Neutrophils % (Manual) 77 H, Lymphocytes % (Manual) 22, Monocytes % (Manual) 1 L, Platelet Estimate Normal, RBC Morphology Normal, Sodium 142, Potassium 4.2, Chloride 106, Carbon Dioxide 29, Anion Gap 11.2, BUN 14, Creatinine 0.80, Estimated Creat Clear 84, Estimated GFR 74, Est GFR ( Amer) 90, Glucose 110 H, Calcium 9.1 I & O for Last 24 hours: Intake & Output 09/01/23 09/02/23 09/03/23 09/04/23 23:59 23:59 23:59 23:59 Intake Total 2460 / 3700 1720 / 1720 Output Total 0 / 0 0 / 0 Balance 2460 / 3700 1720 / 1720 Weight 66.678 kg 66.678 kg Constitutional Constitutional: no acute distress *Routine HEENT Exam Head: Present normocephalic Eye: Present EOMI and PERRL ENT: Present mucous membranes moist *Routine Neck Exam Neck: Present supple; Absent lymphadenopathy *Routine Respiratory Exam Respiratory: Present CTA bilaterally *Routine Cardiovascular Exam Cardiovascular: Present RRR *Routine Abdominal Exam Abdominal: Present soft and normoactive bowel sounds; Absent tenderness *Routine Extremities Exam Extremities: Absent cyanosis, clubbing or edema *Routine Skin Exam Skin: Present warm; Absent rash *Routine Neurological Exam Neurological: Present alert and oriented X3 Results Data Completed and Pending Labs on day of discharge: Labs from last 24 hours 09/04/23 05:28 WBC 16.7 H RBC 3.80 L Hgb 11.8 L Hct 37.1 MCV 97.6 MCH 31.1 MCHC 31.9 RDW 13.4 Plt Count 175 MPV 8.9 Neut % (Auto) 81.2 H Lymph % (Auto) 14.6 Fleming % (Auto) 4.0 Eos % (Auto) 0.1 Baso % (Auto) 0.2 Neut # (Auto) 13.6 H Lymph # (Auto) 2.4 Fleming # (Auto) 0.7 Eos # (Auto) 0.0 Baso # (Auto) 0.0 Total Counted 100 Neutrophils % (Manual) 77 H Lymphocytes % (Manual) 22 Monocytes % (Manual) 1 L Platelet Estimate Normal RBC Morphology Normal Sodium 142 Potassium 4.2 Chloride 106 Carbon Dioxide 29 Anion Gap 11.2 BUN 14 Creatinine 0.80 Estimated Creat Clear 84 Estimated GFR 74 Est GFR ( Amer) 90 Glucose 110 H Calcium 9.1 DS: Diagnosis Discharge Diagnosis (1) Knee joint pain: Status: Acute Code(s): M25.569 - Pain in unspecified knee Qualifiers: Laterality: right Qualified Code(s): M25.561 - Pain in right knee (2) Exostosis of both feet: Status: Acute Code(s): M89.8X7 - Other specified disorders of bone, ankle and foot (3) Pain in surgical scar: Status: Acute Code(s): R52 - Pain, unspecified; L90.5 - Scar conditions and fibrosis of skin (4) Callus of foot: Status: Acute Code(s): L84 - Corns and callosities (5) Plantar fascial fibromatosis of right foot: Status: Acute Code(s): M72.2 - Plantar fascial fibromatosis (6) Gastrocnemius equinus of right lower extremity: Status: Acute Code(s): M62.461 - Contracture of muscle, right lower leg Meds Home Medications and Allergies Home Medications Medication Instructions Recorded Confirmed Type estradiol 0.5 mg tablet 0.5 mg PO DAILY 08/22/22 09/03/23 History levocetirizine 5 mg tablet (Xyzal) 5 mg PO DAILY 11/29/22 09/03/23 History montelukast 10 mg tablet 10 mg PO HS 11/29/22 09/03/23 History (Singulair) cholecalciferol (vitamin D3) 125 125 mcg PO DAILY 90 days #90 caps 01/31/23 09/03/23 Rx mcg (5,000 unit) capsule nitroglycerin 0.3 mg sublingual 0.3 mg sublingual Q5M PRN chest 03/12/23 09/03/23 Rx tablet pain/esophageal spasms #25 tabs red beet root 250 mg-sour moise 10 tab PO DAILY 06/03/23 09/03/23 History extract 0.5 mg chewable tablet duloxetine 60 mg capsule,delayed 60 mg PO DAILY #90 ea 07/11/23 09/03/23 Rx release aspirin 81 mg tablet,delayed 81 mg PO BID #60 tabs 09/03/23 09/03/23 Rx release (Adult Low Dose Aspirin) diclofenac sodium 75 mg 75 mg PO BID 09/03/23 09/03/23 History tablet,delayed release ergocalciferol (vitamin D2) 1,250 1,250 mcg PO WEEKLY Supplement 09/03/23 09/03/23 History mcg (50,000 unit) capsule fluticasone 250 mcg-salmeterol 50 1 ea inhalation BID 09/03/23 09/03/23 History mcg/dose blistr powdr for inhalation levalbuterol HCl 0.63 mg/3 mL 0.63 mg inhalation QIDP PRN 09/03/23 09/03/23 History solution for nebulization Wheezing nifedipine 10 mg capsule 10 mg PO TID 09/03/23 09/03/23 History oxycodone 5 mg tablet 5 mg PO Q4HP PRN Moderate Pain 09/03/23 09/03/23 History (Scale Score 5-6) pantoprazole 40 mg tablet,delayed 40 mg PO BID 09/03/23 09/03/23 History release pregabalin 75 mg capsule 75 mg PO BID 09/03/23 09/03/23 History ibuprofen 600 mg tablet 600 mg PO Q6HP PRN Fever Or Mild 09/04/23 Rx Pain (1-3) 7 days #28 tabs New Prescriptions to Start Prescriptions: Franki Gonzalez Allergies Allergy/AdvReac Type Severity Reaction Status Date / Time amoxicillin [From AUGMENTIN] Allergy Intermediate I-ITCHING Verified 09/03/23 06:22 clavulanic acid Allergy Intermediate I-ITCHING Verified 09/03/23 06:22 [From AUGMENTIN] codeine [CODEINE] Allergy Unknown I-ITCHING Verified 09/03/23 06:22 morphine [MORPHINE] Allergy Unknown I-ITCHING,N Verified 09/03/23 06:22 /V tetracycline [TETRACYCLINE] Allergy Unknown I-ITCHING Verified 09/03/23 06:22 Discharge Plan Disposition Patient Disposition: Home, Self-Care Condition: Good Follow up Plan Follow up with: Pia Rooney PA [Primary Care Provider] - 09/11/23 10:15 am Gutierrez Amato MD [Physician] - 09/25/23 2:00 pm (phyical therapy appointment 09/08 at 11:00. In [facility] therapy) Prescriptions/Medication Reconciliation: New ibuprofen 600 mg Tablet 600 mg PO Q6HP PRN (Reason: Fever Or Mild Pain (1-3)) 7 Days Qty: 28 0RF Continued montelukast [Singulair] 10 mg tablet 10 mg PO HS levocetirizine [Xyzal] 5 mg tablet 5 mg PO DAILY nitroglycerin 0.3 mg tablet, sublingual 0.3 mg sublingual Q5M PRN (Reason: chest pain/esophageal spasms) Qty: 25 0RF Rx Instructions: do not exceed 3 doses per episode cholecalciferol (vitamin D3) 125 mcg (5,000 unit) capsule 125 mcg PO DAILY 90 Days Qty: 90 2RF red beet root-sour moise ext 250-0.5 mg tablet,chewable 10 tab PO DAILY duloxetine 60 mg capsule,delayed release(DR/EC) 60 mg PO DAILY Qty: 90 0RF aspirin [Adult Low Dose Aspirin] 81 mg tablet,delayed release (DR/EC) 81 mg PO BID Qty: 60 0RF Rx Instructions: BID for DVT prophylaxis for 4 weeks s/p R knee replacement estradiol 0.5 mg tablet 0.5 mg PO DAILY fluticasone propion-salmeterol 250-50 mcg/dose blister with device 1 ea INHALATION BID Patient Comments: INHALE 1 DOSE BY MOUTH TWICE DAILY levalbuterol HCl 0.63 mg/3 mL solution for nebulization 0.63 mg INHALATION QIDP PRN (Reason: Wheezing) Patient Comments: USE 1 VIAL IN NEBULIZER 4 TIMES DAILY NEEDED FOR WHEEZING nifedipine 10 mg capsule 10 mg PO TID pantoprazole 40 mg tablet,delayed release (DR/EC) 40 mg PO BID ergocalciferol (vitamin D2) 1,250 mcg (50,000 unit) capsule 1,250 mcg PO WEEKLY oxycodone 5 mg tablet 5 mg PO Q4HP PRN (Reason: Moderate Pain (Scale Score 5-6)) pregabalin 75 mg capsule 75 mg PO BID diclofenac sodium 75 mg Tablet,Delayed Release (Dr/Ec) 75 mg PO BID Problem Reconciliation Problems Reviewed?: Yes Patient Discharge Instructions ACTIVITY: Ambulate as tolerated DIET: continue same diet Patient Instructions: DI for Knee Replacement, DI for Surgical Site Infection Providers Primary Care Provider: Pia Rooney Admit Provider: Drew Espino Attending Provider: Franki Barker
== END 2023-09-04 12:28 | disposition home or self-care (01) ==
LOC: 2ND 06:20
PROVIDERS: Orthopaedic Surgery; Admitting Provider Internal Medicine Adolescent Medicine; PCP Physician Assistant; Visit Provider Internal Medicine
PROC: (CPT 27447; principal; 2023-09-03 07:30)
DX: M25.561 Pain in right knee (principal); M17.11 Unilateral primary osteoarthritis, right knee; F17.210 Nicotine dependence, cigarettes, uncomplicated; Z79.899 Other long term (current) drug therapy; E55.9 Vitamin D deficiency, unspecified; E78.5 Hyperlipidemia, unspecified; I11.0 Hypertensive heart disease with heart failure; I50.9 Heart failure, unspecified
CPT/HCPCS: 27447; 36415; 73560; 80048; 85007; 85025; 96374; 97161; 97166; 97530; 97535; C1776; G0378; J2405; J2704

== ENCOUNTER 2023-09-25 13:26 | Outpatient (CLI) | payer BC, SELFPAY ==
--- NOTE | 2023-09-25 13:33 | XR_ITS ---
FINAL REPORT CLINICAL HISTORY: right tka COMPARISON: None FINDINGS: Three views of the right knee reveal a total knee arthroplasty. The bony alignment is normal. A small joint effusion is present. No localized soft tissue abnormality is identified. IMPRESSION: Right total knee arthroplasty with a small joint effusion. Reviewed, Interpreted and Dictated by Lee Corcoran III, MD Transcribed by Manjula Pop Authenticated and . [facility]
== END 2023-09-25 23:59 | disposition home or self-care (01) ==
LOC: RAD 13:27
PROVIDERS: PCP Physician Assistant; Visit Provider Orthopaedic Surgery
DX: M25.561 Pain in right knee (principal); Z96.651 Presence of right artificial knee joint
CPT/HCPCS: 73562

== ENCOUNTER 2023-11-07 14:12 | Outpatient (CLI) | payer BC, SELFPAY ==
[2023-11-07 17:16] LABS: Basophils # 0.1 K/mm3 (0-0.2); Basophils % 0.8 % (0.1-2.0); Eosinophils # 0.1 K/mm3 (0.0-0.4); Eosinophils % 0.9 % (0.1-12.0); Hematocrit 46.1 % (37.0-47.0); Hemoglobin 16.5 g/dL (12.2-16.2); Lymphocytes # 4.1 K/mm3 (0.7-4.5); Mean Corpuscular HGB Conc 35.7 g/dL (31.8-35.4); Mean Corpuscular Hemoglobin 33.6 pg (27.0-31.2); Mean Corpuscular Volume 94.3 fl (81-99); Mean Platelet Volume 9.5 fl (7.4-10.4); Monocytes # 0.7 K/mm3 (0.1-1.0); Monocytes % 5.1 % (1.7-9.3); Neutrophils # 8.6 K/mm3 (1.8-7.8); Neutrophils % 63.1 % (37.0-80.0); Platelet Count 264 K/mm3 (142-424); Red Blood Count 4.89 M/mm3 (4.20-5.40); Red Cell Distribution Width 13.4 % (11.5-17.5); White Blood Count 13.7 K/mm3 (4.8-10.8)
[2023-11-07 17:33] LABS: Anion Gap 17.2 mEq/L (5-15); Blood Urea Nitrogen 22 mg/dl (7-17); Calcium 10.2 mg/dl (8.4-10.2); Carbon Dioxide 21 mmol/L (22.0-30.0); Chloride 106 mmol/L (98-107); Estimated Glomerular Filt Rate 74 ml/min (>60); GFR (African American) 90 ML/MIN (>60); Glucose 84 mg/dl (74-100); Magnesium 1.9 mg/dl (1.6-2.3); Potassium 4.2 mmoL/L (3.5-5.1); Sodium 140 mmol/L (136-145)
[2023-11-07 18:05] LABS: Thyroid Stimulating Hormone 0.73 uIU/mL (0.465-4.68)
== END 2023-11-07 23:59 | disposition home or self-care (01) ==
LOC: LAB.DROPOF 11-08 14:13
PROVIDERS: PCP Physician Assistant; Visit Provider Physician Assistant
DX: R55 Syncope and collapse (principal)
CPT/HCPCS: 80048; 83735; 84443; 85025

== ENCOUNTER 2023-11-08 13:31 | Outpatient (CLI) | payer BC, SELFPAY ==
[2023-11-08 13:34] LABS: Microscopic, Urine URINE MICROSCOPIC (MICROSCOPIC)
--- NOTE | 2023-11-08 13:43 | XR_ITS ---
FINAL REPORT CLINICAL HISTORY: chest pain/dizziness, cough, soa, hx of asthma, smoker x 21 yrs FINDINGS: No acute pulmonary density is evident. There is no evidence of effusion or other pleural disease. The mediastinum has a normal appearance. The cardiac silhouette is unremarkable. IMPRESSION: Unremarkable chest exam. Reviewed, Interpreted and Dictated by Talib Trinh MD Transcribed by Oly Adkins Authenticated and . [facility]
[2023-11-08 14:08] LABS: Appearance,Urine CLEAR (Clear); Bilirubin,Urine Negative (Negative); Blood, Urine TRACE-I (Negative); Color,Urine YELLOW (Yellow); Glucose,Urine (UA) Negative (Negative); Ketones,Urine Negative (Negative); Leukocyte Esterase,Urine Negative (Negative); Nitrate,Urine Negative (Negative); Protein,Urine Negative (Negative); Specific Gravity, Urine 1.015 (1.005-1.030); Urobilinogen,Urine 0.2 EU/dl (0.2)
[2023-11-08 14:38] LABS: RBC,Urine Occasional #/hpf (0-3)
== END 2023-11-08 23:59 | disposition home or self-care (01) ==
LOC: LAB 13:31
PROVIDERS: PCP Physician Assistant; Visit Provider Physician Assistant
DX: E04.1 Nontoxic single thyroid nodule (principal); R07.9 Chest pain, unspecified; R55 Syncope and collapse
CPT/HCPCS: 71046; 81001

== ENCOUNTER 2023-11-13 10:48 | Outpatient (CLI) | payer BC, SELFPAY ==
--- NOTE | 2023-11-13 10:48 | US_ITS ---
FINAL REPORT CLINICAL HISTORY: thyroid nodule COMPARISON: 08/03/2022 FINDINGS: THYROID ULTRASOUND: The right lobe of the thyroid gland measures 4.8 cm in sagittal length. There are 3 nodules present on today's exam in the right thyroid lobe. The dominant nodule measures 13 x 13 x 7 mm in size, is solid, hypoechoic, a TI-RADS category 4 nodule in the lower pole of the right lobe of the thyroid gland. There are 2 other subcentimeter nodules present on the right side, that are solid, isoechoic, TI-RADS category 3 nodules. The left lobe of the thyroid gland measures 4.2 cm in sagittal length. There are 2 subcentimeter hypoechoic nodules present, the largest measuring 3 x 5 x 3 mm in size. The isthmus measures 3 mm in thickness. IMPRESSION: Multinodular goiter, stable. Multiple nodules are present, all subcentimeter except the dominant nodule, in the inferior right lobe measuring 13 x 13 x 7 mm in size, a TI-RADS category 4 nodule, stable since the prior exam of July 2022. Would continue 12-month follow-up to establish stability. Reviewed, Interpreted and Dictated by Talib Trinh MD Transcribed by Manjula Pop Authenticated and [facility]
== END 2023-11-13 23:59 | disposition home or self-care (01) ==
LOC: RAD 10:48
PROVIDERS: PCP Physician Assistant; Visit Provider Physician Assistant
DX: E04.1 Nontoxic single thyroid nodule (principal)
CPT/HCPCS: 76536

== ENCOUNTER 2023-12-09 12:53 | Outpatient (CLI) | payer BC, SELFPAY ==
--- NOTE | 2023-12-09 | CT_ITS ---
FINAL REPORT TECHNIQUE: Thin section axial images were obtained from the lung apices to the upper abdomen by computed tomography. Reformatted images were obtained and reviewed. This study was performed with techniques to keep radiation doses al low as reasonably achievable (ALARA). Individualized dose reduction techniques using automated exposure control or adjustment of mA and/or kV according to the patient's size were employed. CLINICAL HISTORY: NICOTINE DEPENDENCE, CURRENT SMOKER 20YEARS, 1/2PPD, CHF COMPARISON: None FINDINGS: CHEST CT LOW DOSE 54-year-old female, current smoker, 38-pzyo-hace history. CTDI vol (mGy): 2.90 DLP (mGy-cm): Nine 7.95 There is no axillary adenopathy. There is no mediastinal or hilar mass or adenopathy. The heart is normal in size. There is no pericardial or pleural effusion. There is mild emphysema and mild pulmonary scarring. Lung window images demonstrate a 3 mm right upper lobe nodule best seen on image #26 of series 4.. Limited images of the upper abdomen are unremarkable. IMPRESSION: Lung-RADS category 2. Recommend 12 month follow up low dose chest CT. Reviewed, Interpreted and Dictated by Raman Waldron MD Transcribed by Manjula Pop Authenticated and [facility]
== END 2023-12-09 23:59 | disposition home or self-care (01) ==
LOC: RAD 12:53
PROVIDERS: PCP Physician Assistant; Visit Provider Nurse Practitioner Family
DX: F17.210 Nicotine dependence, cigarettes, uncomplicated (principal)
CPT/HCPCS: 71271

== ENCOUNTER 2024-02-05 12:30 | Outpatient (CLI) | payer BC, SELFPAY ==
[2024-02-05 19:23] LABS: Albumin Level 4.7 g/dl (3.5-5.0); Chloride 108 mmol/L (98-107); Potassium 4.2 mmoL/L (3.5-5.1); Sodium 139 mmol/L (136-145)
[2024-02-05 19:26] LABS: Alanine Aminotransferase 31 U/L (12-78); Albumin/Globulin Ratio 1.7 (1.1-1.8); Alkaline Phosphatase 87 U/L (38-126); Anion Gap 9.2 mEq/L (5-15); Aspartate Amino Transferase 28 U/L (14-36); Bilirubin,Total 0.5 mg/dl (0.2-1.3); Blood Urea Nitrogen 23 mg/dl (7-17); Calcium 9.9 mg/dl (8.4-10.2); Carbon Dioxide 26 mmol/L (22.0-30.0); Cholesterol 282 mg/dl (140-200); Estimated Glomerular Filt Rate 87 ml/min (>60); GFR (African American) 105 ML/MIN (>60); Globulin 2.7 g/dL (1.3-3.2); Glucose 96 mg/dl (74-100); Total Protein,Serum 7.4 g/dl (6.3-8.2); Triglycerides 213 mg/dl (30-150); VLDL Cholesterol 43 mg/dL (0-40)
[2024-02-05 19:27] LABS: Chol/HDL Ratio 5.2 (1-3.5); HDL Cholesterol 54 mg/dl (40-60)
[2024-02-05 19:37] LABS: Direct LDL Cholesterol 176.71 mg/dL (100-129)
[2024-02-05 19:44] LABS: HIV (1&2) Antibody Rapid NONREACTIVE (NONREACTIVE)
[2024-02-06 10:10] LABS: Basophils # 0.2 K/mm3 (0-0.2); Basophils % 1.7 % (0.1-2.0); Eosinophils # 0.1 K/mm3 (0.0-0.4); Eosinophils % 0.5 % (0.1-12.0); Hematocrit 49.1 % (37.0-47.0); Hemoglobin 16.3 g/dL (12.2-16.2); Lymphocytes # 2.3 K/mm3 (0.7-4.5); Mean Corpuscular HGB Conc 33.3 g/dL (31.8-35.4); Mean Corpuscular Volume 96.3 fl (81-99); Mean Platelet Volume 10.3 fl (7.4-10.4); Monocytes # 0.6 K/mm3 (0.1-1.0); Monocytes % 4.4 % (1.7-9.3); Neutrophils # 10.2 K/mm3 (1.8-7.8); Neutrophils % 76.4 % (37.0-80.0); Platelet Count 252 K/mm3 (142-424); Red Cell Distribution Width 13.8 % (11.5-17.5); White Blood Count 13.4 K/mm3 (4.8-10.8)
[2024-02-07 08:28] LABS: HCV Ab Non Reactive (Non Reactive)
[2024-02-07 11:15] LABS: Estradiol 8.3 pg/mL (.); LH 43.8 mIU/mL (.); Progesterone <0.1 ng/mL (.)
== END 2024-02-05 23:59 | disposition home or self-care (01) ==
LOC: LAB.DROPOF 02-06 12:11
PROVIDERS: Visit Provider Family Medicine
DX: N95.1 Menopausal and female climacteric states (principal); Z11.4 Encounter for screening for human immunodeficiency virus [HIV]
CPT/HCPCS: 80053; 80061; 82670; 83001; 83002; 84144; 85025; 86803; 87389

== ENCOUNTER 2024-02-17 17:00 | Outpatient (CLI) | payer BC, SELFPAY ==
[2024-02-17 15:46] LABS: Microscopic, Urine URINE MICROSCOPIC (MICROSCOPIC)
[2024-02-17 16:35] LABS: Appearance,Urine CLEAR (Clear); Bilirubin,Urine Negative (Negative); Blood, Urine TRACE-I (Negative); Color,Urine YELLOW (Yellow); Glucose,Urine (UA) Negative (Negative); Ketones,Urine Negative (Negative); Leukocyte Esterase,Urine Negative (Negative); Nitrate,Urine Negative (Negative); Protein,Urine Negative (Negative); Urobilinogen,Urine 0.2 EU/dl (0.2)
[2024-02-17 17:28] LABS: Bacteria,Urine Trace /lpf; RBC,Urine Occasional #/hpf (0-3)
[2024-02-21 16:28] LABS: Atopobium vaginae Low - 0 Score (.); BVAB2 Low - 0 Score (.); Candida albicans NAA Negative (Negative); Candida glabrata Negative (Negative); Chlamydia Trachomatis NAA Negative (Negative); HSV 1 NAA Negative (Negative); HSV 2 NAA Negative (Negative); Megasphaera 1 Low - 0 Score (.); Neisseria gonorrhoeae NAA Negative (Negative); Trich vag NAA Negative (Negative)
== END 2024-02-17 23:59 | disposition home or self-care (01) ==
LOC: LAB.DROPOF 17:00
PROVIDERS: PCP Urology; Visit Provider Urology
DX: R31.9 Hematuria, unspecified (principal); R33.9 Retention of urine, unspecified
CPT/HCPCS: 81001; 87086; 87491; 87529; 87591; 87661; 87798; 87801

== ENCOUNTER 2024-02-19 16:30 | Outpatient (CLI) | payer BC, SELFPAY ==
--- NOTE | 2024-02-19 16:33 | MM_ITS ---
PROCEDURE INFORMATION: Exam: MG Bilateral Screening 3D Mammography Exam date and time: 02/19/2024 4:22 PM Age: 53 years old Clinical indication: Screening examination. TECHNIQUE: Imaging protocol: Bilateral Screening tomosynthesis and 2D mammography including computer-aided detection (CAD) when performed. COMPARISON: 1. MG MM DIG SCREENING MAMM BI W/CAD 02/12/2023 2:42 PM 2. MG MM DIG SCREENING MAMM BI W/CAD 03/22/2022 8:20 AM FINDINGS: MAMMOGRAPHY: Breast composition: There are scattered areas of fibroglandular density. Mass: None. Architectural distortion: None. Calcifications: No suspicious calcifications. Asymmetric density: None. Skin thickening: None. Axillary adenopathy: None. IMPRESSION: No mammographic evidence of malignancy. Annual screening is recommended unless otherwise clinically indicated. ASSESSMENT: BI-RADS Category 1: Negative.
== END 2024-02-19 23:59 | disposition home or self-care (01) ==
LOC: RAD 16:31
PROVIDERS: PCP Family Medicine; Visit Provider Family Medicine
DX: Z12.31 Encounter for screening mammogram for malignant neoplasm of breast (principal)
CPT/HCPCS: 77063; 77067

== ENCOUNTER 2024-02-28 09:53 | Outpatient (CLI) | payer BC, SELFPAY ==
--- NOTE | 2024-02-28 09:55 | CT_ITS ---
FINAL REPORT TECHNIQUE: Axial CT images of the abdomen and pelvis were obtained before and after the administration of IV contrast. This study was performed with techniques to keep radiation doses as low as reasonably achievable (ALARA). Individualized dose reduction techniques using automated exposure control or adjustment of mA and/or kV according to the patient''s size were employed. CLINICAL HISTORY: left flank pain COMPARISON: 06/26/2018 FINDINGS: Abdomen: The lung bases are clear. The heart is normal in size. The liver has an unremarkable appearance, without evidence of mass or biliary duct dilatation. Post cholecystectomy. The spleen is unremarkable. No adrenal masses present. The pancreas has an unremarkable appearance. The kidneys enhance normally. The aorta is normal in caliber. There is no free fluid or adenopathy. No mass or abnormal fluid collection is seen. Precontrast images demonstrate no evidence of nephrolithiasis. There are mild vascular calcifications. Pelvis: The appendix is normal. Sigmoid diverticulosis is noted. The urinary bladder is unremarkable. The patient is post hysterectomy. No inflammatory process is seen. There is no evidence of mass or adenopathy. There is no evidence of bowel obstruction. There are postoperative changes from fusion of L5-S1. IMPRESSION: No evidence of acute intra-abdominal process. Reviewed, Interpreted and Dictated by Lee Corcoran III, MD Transcribed by Aileen Barreto Authenticated and [facility]
[2024-02-28] MEDS: SODIUM CHLORIDE 0.9% 10ML SYR (RAD ONLY) 10 ML IV (10:18)
[2024-02-28] MEDS: IOPAMIDOL-370 (76%);100ML BOTTLE 75 ML IV (10:18)
== END 2024-02-28 23:59 | disposition home or self-care (01) ==
LOC: RAD 09:54
PROVIDERS: PCP Family Medicine; Visit Provider Urology
DX: R10.9 Unspecified abdominal pain (principal)
CPT/HCPCS: 74178; Q9967

== ENCOUNTER 2024-04-10 08:21 | Day surgery (SDC) | payer BC, SELFPAY ==
--- NOTE | 2024-04-07 17:12 | SUR.PREOP ---
Left message w/ call back # on 04/07
[2024-04-08 09:47] VITALS: BMI 25.2
[2024-04-10 08:57] VITALS: BP 142/84; PULSE 79; RESP 16; TEMP 36.7; O2SAT 98
[2024-04-10] MEDS: 0.9 % SODIUM CHLORIDE 500 ML 25 ML IV (09:07)
--- NOTE | 2024-04-10 09:14 | P.PCN_ITS ---
[facility] Procedure Note Date: 04/10/24 Time: 09:14 Procedure Note:: Chart review: The patient is here to further evaluate for microscopic hematuria. In addition she has a bashful bladder syndrome and dyspareunia. The patient has been on Estrace, Detrol [place]. Preop diagnosis: Hematuria Postop diagnosis: Hematuria/urethritis Operative note: The patient was brought to the cystoscopy suite she was prepped in the standard fashion. She underwent flexible cystoscopy. She has moderate urethritis. This very well may be the source for the hematuria. It also is the likely contributing source to the dyspareunia. Her CT scan with and without infusion on 03/15 showed the urologic negative but she does have diverticular disease. The ureteral orifice ease are normal bilaterally with clear E flux of urine. On the right-hand bladder side the patient has some early diverticuli formations that empty well and have a widemouth. There is no evidence of bladder stone tumor hemorrhage or infection. She tolerated the procedure well.
[2024-04-10 09:15] VITALS: BP 131/83; PULSE 67; RESP 16; O2SAT 98
[2024-04-10 13:12] LABS: Microscopic,Cath URINE MICROSCOPIC (MICROSCOPIC)
[2024-04-10 13:27] LABS: Appearance,Urine/Cath CLEAR (Clear); Bilirubin,Cath Negative (Negative); Blood, Urine/Cath Negative (Negative); Color,Urine/Cath YELLOW (Yellow); Glucose,Urine/Cath (UA) Negative (Negative); Ketones,Urine/Cath Negative (Negative); Leukocyte Esterase,Cath Negative (Negative); Nitrate,Cath Negative (Negative); Protein,Urine/Cath Negative (Negative); Specific Gravity, Urine/Cath 1.025 (1.005-1.030); Urobilinogen,Cath 0.2 EU/dl (0.2)
[2024-04-10 14:12] LABS: Bacteria,Urine/Cath TRACE /lpf; CA Oxalate Crystals,Ur/Cath 1+ /lpf; Hyaline Casts,Urine/Cath O #/lpf (0); Mucus,Urine/Cath Trace /lpf; WBC,Urine/Cath Occasional #/hpf (0-3)
== END 2024-04-10 09:31 | disposition home or self-care (01) ==
PROVIDERS: PCP Physician Assistant; Visit Provider Urology
PROC: 0TJB8ZZ Inspection of Bladder, Via Natural or Artificial Opening Endoscopic (ICD-10-PCS; CPT 52000; principal; 2024-04-10 09:30)
DX: R31.9 Hematuria, unspecified (principal); N34.2 Other urethritis
CPT/HCPCS: 52000; 81001

== ENCOUNTER 2024-04-20 09:50 | Outpatient (RCR) | payer BC, SELFPAY | END 2024-04-20 23:59 | disposition home or self-care (01) | LOC: PT 09:50 | PROVIDERS: Visit Provider Orthopaedic Surgery | DX: M25.561 Pain in right knee (principal); Z96.651 Presence of right artificial knee joint | CPT/HCPCS: 97110; 97163 ==

== ENCOUNTER 2024-04-30 13:55 | Outpatient (RCR) | payer BC, SELFPAY | END 2024-04-30 23:59 | disposition home or self-care (01) | LOC: PT 13:55 | PROVIDERS: Visit Provider Orthopaedic Surgery | DX: Z96.651 Presence of right artificial knee joint (principal) ==

== ENCOUNTER 2024-05-04 12:00 | Outpatient (CLI) | payer BC, SELFPAY ==
[2024-05-04 16:48] LABS: Microscopic, Urine URINE MICROSCOPIC (MICROSCOPIC)
[2024-05-04 17:44] LABS: Appearance,Urine CLEAR (Clear); Bilirubin,Urine Negative (Negative); Blood, Urine TRACE-I (Negative); Color,Urine YELLOW (Yellow); Glucose,Urine (UA) Negative (Negative); Ketones,Urine Negative (Negative); Leukocyte Esterase,Urine Negative (Negative); Nitrate,Urine Negative (Negative); PH,Urine 6.5 (5.0-8.5); Protein,Urine Negative (Negative); Specific Gravity, Urine 1.025 (1.005-1.030); Urobilinogen,Urine 0.2 EU/dl (0.2)
[2024-05-04 18:50] LABS: Bacteria,Urine Trace /lpf; RBC,Urine Occasional #/hpf (0-3)
== END 2024-05-04 23:59 | disposition home or self-care (01) ==
LOC: LAB.DROPOF 05-05 13:14
PROVIDERS: PCP Urology; Visit Provider Urology
DX: N32.81 Overactive bladder (principal)
CPT/HCPCS: 81001

== ENCOUNTER 2024-05-06 07:58 | Outpatient (CLI) | payer BC, SELFPAY ==
--- NOTE | 2024-05-06 08:07 | MR_ITS ---
FINAL REPORT TECHNIQUE: Multiplanar MR without contrast CLINICAL HISTORY: MID TO LOW BACK PAIN. POST LAMINECTOMY SYNDROME COMPARISON: None FINDINGS: MRI THORACIC SPINE: The vertebral heights are normal. Marrow signal pattern is unremarkable. Alignment is normal. Thoracic spinal cord shows a normal MR appearance. A minimal annular bulge is present at the T11-12 level. There is significant degenerative disc disease at the C6-7 level, that likely produces mild cervical canal stenosis. IMPRESSION: Minimal annular bulge at the T11-12 level. Note is made of significant degenerative disc disease at the C6-7 level that likely produces mild cervical canal stenosis. Reviewed, Interpreted and Dictated by Talib Trinh MD Transcribed by Manjula Pop Authenticated and [facility]
== END 2024-05-06 23:59 | disposition home or self-care (01) ==
PROVIDERS: PCP Physician Assistant; Visit Provider Anesthesiology
DX: M54.9 Dorsalgia, unspecified (principal); M96.1 Postlaminectomy syndrome, not elsewhere classified
CPT/HCPCS: 72146

== ENCOUNTER 2024-05-14 11:43 | Day surgery (SDC) | payer BC, SELFPAY ==
[2024-05-12 10:06] VITALS: BMI 25.2
[2024-05-14 12:21] VITALS: BP 112/74; PULSE 72; RESP 16; TEMP 36.7; O2SAT 98
[2024-05-14] MEDS: LACTATED RINGERS 1000ML 1,000 ML 50 ML IV (12:31)
--- NOTE | 2024-05-14 13:34 | P.PNANES_ITS ---
[facility] Disclaimer: The information contained in this section may have been updated after the patient was seen, as this information can be updated by other users. 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 Bronchospasm Asthma LGSIL Pap smear of vagina Menopausal symptoms History of genital warts Interstitial cystitis (chronic) with hematuria Osteoarthritis Dyspnea Dysphagia Anxiety Esophageal spasm Hyperlipidemia Vitamin D deficiency Edema Plantar wart Influenza A Sleep apnea Hypertension GERD (gastroesophageal reflux disease) Surgical History History of esophagogastroduodenoscopy (EGD) History of vaginectomy History of colonoscopy with polypectomy History of tonsillectomy H/O right heart catheterization History of cholecystectomy History of sinus surgery H/O spinal fusion H/O: hysterectomy Family History Other Family history of cancer Family history of hypertension 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 Smoking Status: Current every day smoker tobacco type: cigarettes packs per day: 1 alcohol intake: never substance use type: denies use current occupational status: employed Travel in the last 8 weeks: None household members: spouse housing: house marital status: number of children: 3 education level: college 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 current occupational exposures/hazards: No caffeine: No special mahsa needs: No agree to transfusion: No do you feel safe at home: Yes victim of physical abuse: No victim of emotional abuse: No victim of sexual abuse: No would you like helpful sources: No Have you lived/traveled outside US in past 30 days?: No Contact w/someone who lives/traveled outside US past 30 days?: No Exposure to someone with infectious disease in past 14 days?: No Do you have a fever (greater than 100.4 F or 38 C)?: No Have you tested positive for COVID-19: No Exposed to someone with COVID-19 in past 14 days?: No Do you have a sore throat?: No Do you have a cough?: No Do you have any weakness?: No Do you have any diarrhea?: No Are you experiencing any unusual bleeding?: No Do you have any muscle aches/pain?: No Do you have any abdominal pain?: No Are you experiencing loss of taste or smell?: No [facility] Anesthesia Checklist Patient Identification Patient Identification: Arm Band and Family Structural Data Admitted From: Home Planned Operative Procedure/s: EGD Consent for Planned Operative Procedure(s) Verified: Yes Verified Documents: Surgical Consent and History and Physical NPO Status Verified Time NPO: 00:00 Additional verifications Anesthesia Reactions: No Hx Blood Transfusions: No Blood Transfusion Reaction: No Cephalosporin Allergy: No Previous Colonoscopy: Yes Airway Assessment Mallampati Score:: Class II C-Spine Mobility Assessed: Yes TMJ Mobility Assessed: Yes Dentition: Good Dentition Neurological Assessment Level of Consciousness: Awake, Alert, Appropriate and Follows Commands Hx Seizures: No Numbness or tingling in extremities: No Anesthesia Plan ASA Class: II Anesthesia Type: MAC
--- NOTE | 2024-05-14 13:53 | P.HP_ITS ---
History of Present Illness *Admission Date: 05/14/24 *Reason for visit:: Globus sensation and noncardiac chest pain *History of present illness: Mrs. Muniz is a 54-year-old female who is here for diagnostic upper endoscopy. She had formerly been a patient of mine and was last seen in February 2018. The patient does have a history of functional reflux, functional dyspepsia and functional bowel disease. The patient had prior EGD and colonoscopy with ma. Her colonoscopy in December 2017 revealed a single polyp (tubular adenoma) and diverticulosis. She had hemorrhoid band ligation at that time. Her colonoscopy in November 2015 (I believe Ki Timmons M.D.) had shown 3 polyps that were adenomatous. The patient also has had EGDs and last one was with me in December 2016 with dilation and cricopharyngeal spasm. She had been on buspirone, Reglan and omeprazole. She got lost to follow-up and then started seeing Fantasma Chacko MD. He did panendoscopy in August 2022 and stated that her examinations were normal but he did do dilation. She did state that she was very sore in the retrosternal region for more than a week. The patient continues to have globus sensation, hoarseness, constant clearance of the throat and some chest pain. She does get some belching. She is on Lyrica, duloxetine, neoprene and pantoprazole. She is inquiring about stiff disease. The patient gets some minor bloating. She formerly had constipation but now reports loose stools, urgency and incomplete defecation. [facility] Disclaimer: The information contained in this section may have been updated after the patient was seen, as this information can be updated by other users. 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 (Updated 05/14/24 @ 13:55 by James Elkins II, MD) Bronchospasm Asthma LGSIL Pap smear of vagina Menopausal symptoms History of genital warts Interstitial cystitis (chronic) with hematuria Osteoarthritis Dyspnea Dysphagia Anxiety Esophageal spasm Hyperlipidemia Vitamin D deficiency Edema Plantar wart Influenza A Sleep apnea Hypertension GERD (gastroesophageal reflux disease) Surgical History History of esophagogastroduodenoscopy (EGD) History of vaginectomy History of colonoscopy with polypectomy History of tonsillectomy H/O right heart catheterization History of cholecystectomy History of sinus surgery H/O spinal fusion H/O: hysterectomy Family History Other Family history of cancer Family history of hypertension 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 Smoking Status: Current every day smoker tobacco type: cigarettes packs per day: 1 alcohol intake: never substance use type: denies use current occupational status: employed Travel in the last 8 weeks: None household members: spouse housing: house marital status: number of children: 3 education level: college 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 current occupational exposures/hazards: No caffeine: No special mahsa needs: No agree to transfusion: No do you feel safe at home: Yes victim of physical abuse: No victim of emotional abuse: No victim of sexual abuse: No would you like helpful sources: No Have you lived/traveled outside US in past 30 days?: No Contact w/someone who lives/traveled outside US past 30 days?: No Exposure to someone with infectious disease in past 14 days?: No Do you have a fever (greater than 100.4 F or 38 C)?: No Have you tested positive for COVID-19: No Exposed to someone with COVID-19 in past 14 days?: No Do you have a sore throat?: No Do you have a cough?: No Do you have any weakness?: No Do you have any diarrhea?: No Are you experiencing any unusual bleeding?: No Do you have any muscle aches/pain?: No Do you have any abdominal pain?: No Are you experiencing loss of taste or smell?: No Other 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 Have you received the Flu Vaccine for this season: No Have you received the Pneumonia Vaccine: No Review of Systems Review of Systems Review of systems (narrative): Negative *Cardiovascular Comments: Negative *Gastrointestinal Comments: Negative *Genitourinary Comments: Negative *Musculoskeletal Comments: Negative *Neurologic Comments: Negative Meds Home Medications and Allergies Home Medications ?Medication ?Instructions ?Recorded ?Confirmed ?Type cholecalciferol (vitamin D3) 125 125 mcg PO DAILY 90 days #90 caps 01/31/23 05/14/24 Rx mcg (5,000 unit) capsule nitroglycerin 0.3 mg sublingual 0.3 mg sublingual Q5M PRN chest 03/12/23 05/14/24 Rx tablet pain/esophageal spasms #25 tabs levalbuterol HCl 0.63 mg/3 mL 0.63 mg inhalation QIDP PRN 09/03/23 05/14/24 History solution for nebulization Wheezing duloxetine 60 mg capsule,delayed See Rx Instructions .Route 10/28/23 05/14/24 Rx release .COMPLEX #90 ea cyclobenzaprine 10 mg tablet 10 mg PO TID PRN muscle spasm #90 11/07/23 05/14/24 Rx tabs lansoprazole 30 mg capsule,delayed 30 mg PO BID #60 caps 11/07/23 05/14/24 Rx release (Prevacid) nifedipine 10 mg capsule 10 mg PO TID #90 caps 11/07/23 05/14/24 Rx levalbuterol tartrate 45 2 puff inhalation DAILY 02/05/24 05/14/24 History mcg/actuation aerosol inhaler (Xopenex HFA) pregabalin 75 mg capsule 75 mg PO BID #60 caps 02/05/24 05/14/24 Rx estradiol 1 mg tablet 1 mg PO DAILY #30 tabs 03/02/24 05/14/24 Rx buspirone 10 mg tablet 10 mg PO BID #60 tabs 03/03/24 05/14/24 Rx lorazepam 1 mg tablet 1 mg PO DAILY PRN Esophageal spasm 03/03/24 05/14/24 Rx #30 tabs fezolinetant 45 mg tablet ([place]) 45 mg PO DAILY Hot flashes and 03/31/24 05/14/24 History night sweats diclofenac sodium 75 mg 75 mg PO DAILY 05/04/24 05/14/24 History tablet,delayed release estradiol 0.01% (0.1 mg/gram) See Rx Instructions vaginal 05/04/24 05/14/24 Rx vaginal cream .COMPLEX #42.5 grams tamsulosin 0.4 mg capsule (Flomax) 0.4 mg PO Q24H 90 days #90 caps 05/04/24 05/14/24 Rx tolterodine 4 mg capsule,extended 4 mg PO DAILY 90 days #90 caps 05/04/24 05/14/24 Rx release 24 hr (Detrol [place]) New Prescriptions to Start Prescriptions: Allergies Allergy/AdvReac Type Severity Reaction Status Date / Time amoxicillin (From AUGMENTIN) Allergy Intermediate I-ITCHING Verified 05/14/24 12:18 clavulanic acid (From Allergy Intermediate I-ITCHING Verified 05/14/24 12:18 AUGMENTIN) codeine (CODEINE) Allergy Unknown I-ITCHING Verified 05/14/24 12:18 morphine (MORPHINE) Allergy Unknown I-ITCHING,N Verified 05/14/24 12:18 /V tetracycline (TETRACYCLINE) Allergy Unknown I-ITCHING Verified 05/14/24 12:18 Exam Data for Last 24 hours Vital signs and Labs for Last 24 Hours: Temp Pulse Resp BP Pulse Ox O2 Del Method 98.0 F 72 16 112/74 98 Room Air 05/14/24 12:21 05/14/24 12:21 05/14/24 12:21 05/14/24 12:21 05/14/24 12:21 05/14/24 12:21 I & O for Last 24 hours: Intake & Output 05/11/24 05/12/24 05/13/24 05/14/24 23:59 23:59 23:59 23:59 Weight 152 lb *Routine HEENT Exam Head: Present normocephalic Eye: Present EOMI and PERRL ENT: Present mucous membranes moist *Routine Neck Exam Neck: Present supple *Routine Respiratory Exam Respiratory: Present CTA bilaterally *Routine Cardiovascular Exam Cardiovascular: Present RRR *Routine Abdominal Exam Abdominal: Present soft and normoactive bowel sounds; Absent tenderness *Routine Rectal Exam Rectal:: deferred *Routine Genitalia Exam Genitalia:: deferred *Routine Extremities Exam Extremities: Absent cyanosis, clubbing or edema *Routine Skin Exam Skin: Present warm; Absent rash *Routine Neurological Exam Neurological: Present alert and oriented X3 Assessment and Plan *Assessment and plan (1) Globus sensation: Status: Acute Category: Medical Code(s): R09.A2 - Foreign body sensation, throat (2) Throat clearing: Status: Acute Category: Medical Code(s): R09.89 - Other specified symptoms and signs involving the circulatory and respir atory systems (3) Esophageal dyskinesia: Status: Acute Category: Medical Code(s): K22.4 - Dyskinesia of esophagus (4) Non-cardiac chest pain: Status: Acute Category: Medical Code(s): R07.89 - Other chest pain Plan A/P: 1. Persistent globus sensation with frequent clearing of the throat and some noncardiac chest pain is the preprocedural diagnosis. The patient will be anesthetized/sedated using MAC sedation. The patient has been seen and examined. Cardiac and lung assessment prior to the examination is stable. Proceed with planned diagnostic/therapeutic EGD
[2024-05-14 14:01] VITALS: O2SAT 98
--- NOTE | 2024-05-14 14:02 | HMH.PROCNOTE ---
[facility] Procedure Note Date: 05/14/24 Time: 14:18 Procedure Note:: Upper Endoscopy Procedure Report: Esophagogastroduodenoscopy with cold biopsies and TTS balloon dilation Endoscopost: James Elkins II, MD Referring Physician: Pia Rooeny PA-C Date of Procedure: May 14, 2024 Equipment: Olympus GIF 190 standard upper endoscope Sedation: MAC sedation Indications: Mrs. Muniz is a 54-year-old female who is here for diagnostic upper endoscopy secondary to globus, noncardiac chest pain, esophageal spasm. She had formerly been a patient of mine and was last seen in February 2018. The patient does have a history of functional reflux, functional dyspepsia and functional bowel disease. The patient had prior EGD and colonoscopy with sc. Her colonoscopy in December 2017 revealed a single polyp (tubular adenoma) and diverticulosis. She had hemorrhoid band ligation at that time. Her colonoscopy in November 2015 (I believe Ki Timmons M.D.) had shown 3 polyps that were adenomatous. The patient also has had EGDs and last one was with sc in December 2016 with dilation and cricopharyngeal spasm. She had been on buspirone, Reglan and omeprazole. She got lost to follow-up and then started seeing Fantasma Chacko MD. He did panendoscopy in August 2022 and stated that her examinations were normal but he did do dilation. She did state that she was very sore in the retrosternal region for more than a week. The patient continues to have globus sensation, hoarseness, constant clearance of the throat and some chest pain. She does get some belching. She is on Lyrica, duloxetine, neoprene and pantoprazole. She had inquired about Stills or Stiff Person Syndrome. The patient gets some minor bloating. She formerly had constipation but now reports loose stools, urgency and incomplete defecation. Procedure: Prior to the procedure, a history and physical exam was performed, and patient's medications and allergies were reviewed. The risks, benefits and alternatives of the sedation and procedure were discussed with the patient. All questions were answered and informed consent was obtained. The patient was brought to the procedure room. Patient identification and proposed procedure were verified by the physician and the nurse. The patient was placed in a left lateral decubitus position and the scope was passed under direct vision. Throughout the procedure, the patient's blood pressure, pulse, and oxygen saturations were monitored continuously. The upper GI endoscopy was accomplished without difficulty. The patient tolerated the procedure well. Findings: The scope was passed directly into the upper esophagus and advanced to the third portion of the duodenum. The post bulbar duodenum and duodenal bulb were normal with normal mucosa and conniventes. The scope was withdrawn through a normal duodenal bulb and pylorus into the stomach. There was mild reactive gastropathy of antrum. There was a erythematous mosaic pattern to the mucosa in the body and fundus of the stomach consistent with chronic gastritis and biopsies were obtained to rule out H. pylori. Upon retroflexion there was a very small sliding 1 to 2 cm hiatal hernia. The scope was then withdrawn into the esophagus. There was no evidence of reflux esophagitis or Calderon's. There was some small flat raised plaques along the lining of the esophageal mucosa consistent with mild esophageal glycogen acanthosis. There was also evidence of tertiary contractions and moderate esophageal dysmotility. There was no evidence of any rings, strictures, corrugation or furrowing. There was no esophageal inlet patch. The entire esophagus was dilated to 60 [place]/20 mm with a TTS hydrostatic balloon. There was some resistance at the cricopharyngeus/cricopharyngeal spasm. The remainder of the esophageal mucosa was normal. Impression: 1. Cricopharyngeal spasm 2. Nonerosive GERD with moderate esophageal dysmotility and very small 1 to 2 cm hiatal hernia 3. Mild esophageal glycogenic acanthosis 4. Mild proximal gastritis?rule out H. pylori Plan: I will follow-up the biopsies. The patient clearly has cricopharyngeal and esophageal spasm that lend to her globus and noncardiac chest pain. I would recommend Iberogast twice daily, low-dose buspirone or tricyclic and possibly low-dose lorazepam for breakthrough esophageal spasm/esophageal dyskinesia.
[2024-05-14 14:21] VITALS: BP 92/58; PULSE 67; RESP 16; TEMP 36.6; O2SAT 96
[2024-05-14 14:31] VITALS: BP 88/57; PULSE 74; RESP 16; O2SAT 99
[2024-05-14 14:41] VITALS: BP 98/58; PULSE 74; RESP 16; O2SAT 98
[2024-05-14 14:51] VITALS: BP 108/70; PULSE 61; RESP 16; O2SAT 99
== END 2024-05-14 14:58 | disposition home or self-care (01) ==
PROVIDERS: PCP Physician Assistant; Visit Provider Internal Medicine Gastroenterology
PROC: 0DJ08ZZ Inspection of Upper Intestinal Tract, Via Natural or Artificial Opening Endoscopic (ICD-10-PCS; CPT 43239; principal; 2024-05-14 13:30)
DX: R09.A2 Foreign body sensation, throat (principal); R09.89 Other specified symptoms and signs involving the circulatory and respiratory systems; K22.4 Dyskinesia of esophagus; R07.89 Other chest pain; J39.2 Other diseases of pharynx; K29.70 Gastritis, unspecified, without bleeding; K44.9 Diaphragmatic hernia without obstruction or gangrene; K22.9 Disease of esophagus, unspecified; Z72.0 Tobacco use
CPT/HCPCS: 43239; 43249; C1726; J7120

== ENCOUNTER 2024-05-22 10:29 | Outpatient (CLI) | payer BC, SELFPAY ==
--- NOTE | 2024-05-22 10:42 | XR_ITS ---
FINAL REPORT CLINICAL HISTORY: BILATERAL HIP PAIN COMPARISON: None FINDINGS: SACROILIAC JOINTS SERIES Four views were obtained. There is no acute fracture or dislocation. The joint spaces are preserved. The visualized bony structures are well aligned. No soft tissue abnormality is seen. Fusion hardware is seen bridging L5-S1. IMPRESSION: No acute bony abnormality. Reviewed, Interpreted and Dictated by Raman Waldron MD Transcribed by Aileen Barreto Authenticated and [facility]
--- NOTE | 2024-05-22 10:42 | XR_ITS ---
FINAL REPORT CLINICAL HISTORY: RT HAND PAIN COMPARISON: 09/20/2021 FINDINGS: RIGHT HAND Three views demonstrate no acute fracture or dislocation. The visualized joint spaces are normally aligned. The soft tissues are unremarkable. IMPRESSION: No acute bony abnormality. Reviewed, Interpreted and Dictated by Raman Waldron MD Transcribed by Aileen Barreto Authenticated and . [facility]
--- NOTE | 2024-05-22 10:42 | XR_ITS ---
FINAL REPORT CLINICAL HISTORY: LT HAND PAIN COMPARISON: None FINDINGS: LEFT HAND Three views demonstrate no acute fracture or dislocation. The visualized joint spaces are normally aligned. The soft tissues are unremarkable. IMPRESSION: No acute process. Reviewed, Interpreted and Dictated by Raman Waldron MD Transcribed by Aileen Barreto Authenticated and [facility]
[2024-05-22 10:56] LABS: Microscopic, Urine URINE MICROSCOPIC (MICROSCOPIC)
[2024-05-22 11:18] LABS: Basophils # 0.1 K/mm3 (0-0.2); Basophils % 0.5 % (0.1-2.0); Eosinophils # 0.1 K/mm3 (0.0-0.4); Eosinophils % 0.8 % (0.1-12.0); Hematocrit 45.1 % (37.0-47.0); Hemoglobin 15.5 g/dL (12.2-16.2); Lymphocytes # 3.3 K/mm3 (0.7-4.5); Lymphocytes % 26.7 % (10-50); Mean Corpuscular HGB Conc 34.4 g/dL (31.8-35.4); Mean Corpuscular Hemoglobin 30.8 pg (27.0-31.2); Mean Corpuscular Volume 89.7 fl (81-99); Mean Platelet Volume 10.9 fl (7.4-10.4); Monocytes # 0.6 K/mm3 (0.1-1.0); Monocytes % 4.6 % (1.7-9.3); Neutrophils # 8.3 K/mm3 (1.8-7.8); Platelet Count 259 K/mm3 (142-424); Red Blood Count 5.03 M/mm3 (4.20-5.40); White Blood Count 12.4 K/mm3 (4.8-10.8)
[2024-05-22 11:24] LABS: Appearance,Urine CLEAR (Clear); Bilirubin,Urine Negative (Negative); Blood, Urine TRACE-I (Negative); Color,Urine YELLOW (Yellow); Glucose,Urine (UA) Negative (Negative); Ketones,Urine Negative (Negative); Leukocyte Esterase,Urine Negative (Negative); Nitrate,Urine Negative (Negative); Protein,Urine Negative (Negative); Urobilinogen,Urine 0.2 EU/dl (0.2)
[2024-05-22 11:41] LABS: Creatine Kinase 90 U/L (30-135)
[2024-05-22 11:48] LABS: C-Reactive Protein 23.2 mg/L (0-4)
[2024-05-22 11:52] LABS: Bacteria,Urine Trace /lpf; Squamous Epithelial Cell,Urine Occasional #/hpf (0-5); WBC,Urine Occasional #/hpf (0-3)
[2024-05-22 11:58] LABS: Erythrocyte Sedimentation Rate 14 mm/hr (0-30)
[2024-05-22 12:01] LABS: 25-OH Vitamin D, Total 34.9 ng/mL (30-100)
[2024-05-23 09:10] LABS: Complement C3 170 mg/dL (82-167); RA Latex Turbid. <10.0 IU/mL (<14.0)
[2024-05-23 16:10] LABS: Sjogren's Anti-SS-A <0.2 AI (0.0-0.9); Sjogren's Anti-SS-B <0.2 AI (0.0-0.9)
[2024-05-26 08:13] LABS: dsDNA AB Crithidia Negative (Negative)
[2024-05-26 12:59] LABS: Chloride 103 mmol/L (98-107)
[2024-05-26 13:00] LABS: Potassium 3.9 mmoL/L (3.5-5.1); Sodium 142 mmol/L (136-145)
[2024-05-26 13:03] LABS: Alanine Aminotransferase 42 U/L (12-78); Albumin/Globulin Ratio 1.8 (1.1-1.8); Alkaline Phosphatase 108 U/L (38-126); Anion Gap 16.9 mEq/L (5-15); Aspartate Amino Transferase 38 U/L (14-36); Bilirubin,Total 0.7 mg/dl (0.2-1.3); Blood Urea Nitrogen 14 mg/dl (7-17); Calcium 9.8 mg/dl (8.4-10.2); Carbon Dioxide 26 mmol/L (22.0-30.0); Estimated Glomerular Filt Rate 87 ml/min (>60); GFR (African American) 105 ML/MIN (>60); Globulin 2.8 g/dL (1.3-3.2); Glucose 95 mg/dl (74-100); Total Protein,Serum 7.8 g/dl (6.3-8.2)
[2024-05-26 20:09] LABS: Anti-CCP Abs,IgG and IgA (RDL) 21 Units (<20)
[2024-05-27 19:08] LABS: HLA-B27 Negative (.)
[2024-05-28 09:52] LABS: Miscellaneous Test SCANNED IMAGE
[2024-05-29 22:13] LABS: 14.3.3 eta, RA < 0.20 ng/mL (.)
== END 2024-05-22 23:59 | disposition home or self-care (01) ==
LOC: RAD 10:31
PROVIDERS: PCP Physician Assistant; Visit Provider Internal Medicine Rheumatology
DX: M79.7 Fibromyalgia (principal); R21 Rash and other nonspecific skin eruption; R76.0 Raised antibody titer; M19.90 Unspecified osteoarthritis, unspecified site
CPT/HCPCS: 72202; 73130; 80053; 81001; 82085; 82306; 82550; 83520; 85025; 85651; 86038; 86140; 86161; 86200; 86225; 86235; 86431; 86812

== ENCOUNTER 2024-07-29 08:49 | Outpatient (CLI) | payer BC, SELFPAY ==
[2024-07-30 18:13] LABS: H. pylori Breath Test Positive (Negative)
== END 2024-07-29 23:59 | disposition home or self-care (01) ==
LOC: LAB 08:50
PROVIDERS: PCP Physician Assistant; Visit Provider Internal Medicine Gastroenterology
DX: K29.70 Gastritis, unspecified, without bleeding (principal); B96.81 Helicobacter pylori [H. pylori] as the cause of diseases classified elsewhere
CPT/HCPCS: 83013

== ENCOUNTER 2024-08-12 12:34 | Outpatient (CLI) | payer BC, SELFPAY ==
--- NOTE | 2024-08-12 12:46 | MR_ITS ---
FINAL REPORT TECHNIQUE: Multiplanar and multisequence imaging of the brain was obtained without contrast. CLINICAL HISTORY: *RT KNEE REPLACEMENT/FUSION L5-S1/SYNCOPE. episodes of near syncope. dizziness COMPARISON: None FINDINGS: There is mild global atrophy. There is no mass effect or midline shift. Bilateral foci of periventricular and subcortical white matter changes are present, with a slight frontal predominance. No hydrocephalus. The cerebellum and brainstem have an unremarkable appearance. There are no areas of restricted diffusion on diffusion weighted images to suggest acute infarct. Soft tissues are without acute abnormality. Fluid is present in the left mastoid air cells. IMPRESSION: No acute intracranial abnormality. Nonspecific T2 abnormality within the periventricular and subcortical white matter with a slight frontal predominance. Differential considerations include changes of chronic small vessel ischemia and demyelinating disease. Left mastoiditis. Reviewed, Interpreted and Dictated by Melodie Ruth MD Transcribed by Manjula Pop Authenticated and [facility]
[2024-08-12 12:49] LABS: Basophils # 0.1 K/mm3 (0-0.2); Basophils % 0.7 % (0.1-2.0); Eosinophils # 0.1 Kmm3 (0.0-0.4); Eosinophils % 0.8 % (0.1-12.0); Hematocrit 44.4 % (37.0-47.0); Hemoglobin 15.4 g/dL (12.2-16.2); Lymphocytes # 4.1 K/mm3 (0.7-4.5); Lymphocytes % 38.2 % (10-50); Mean Corpuscular HGB Conc 34.7 g/dL (31.8-35.4); Mean Corpuscular Hemoglobin 31.3 pg (27.0-31.2); Mean Corpuscular Volume 90.2 fl (81-99); Mean Platelet Volume 10.5 fl (7.4-10.4); Monocytes # 0.8 K/mm3 (0.1-1.0); Neutrophils # 5.7 K/mm3 (1.8-7.8); Neutrophils % 52.9 % (37.0-80.0); Nucleated Red Blood Cells # 0 10^3/uL; Nucleated Red Blood Cells % 0 %; Platelet Count 228 K/mm3 (142-424); Red Blood Count 4.92 M/mm3 (4.20-5.40); Red Cell Distribution Width 12.1 % (11.5-17.5); Red Cell Distribution Width-SD 39.8 fL; White Blood Count 10.7 K/mm3 (4.8-10.8)
[2024-08-12 12:58] LABS: Alanine Aminotransferase 44 U/L (12-78); Albumin Level 4.4 g/dl (3.5-5.0); Albumin/Globulin Ratio 1.5 (1.1-1.8); Alkaline Phosphatase 59 U/L (38-126); Anion Gap 14.8 mEq/L (5-15); Aspartate Amino Transferase 39 U/L (14-36); Bilirubin,Total 0.5 mg/dl (0.2-1.3); Blood Urea Nitrogen 13 mg/dl (7-17); Calcium 9.6 mg/dl (8.4-10.2); Carbon Dioxide 29 mmol/L (22.0-30.0); Chloride 105 mmol/L (98-107); Estimated Glomerular Filt Rate 74 ml/min (>60); GFR (African American) 90 ML/MIN (>60); Glucose 114 mg/dl (74-100); Potassium 3.8 mmoL/L (3.5-5.1); Sodium 145 mmol/L (136-145); Total Protein,Serum 7.4 g/dl (6.3-8.2)
[2024-08-12 13:11] LABS: Chol/HDL Ratio 2.2 (1-3.5); Cholesterol 104 mg/dl (140-200); HDL Cholesterol 47 mg/dl (40-60); Triglycerides 148 mg/dl (30-150); VLDL Cholesterol 30 mg/dL (0-40)
[2024-08-12 13:21] LABS: Direct LDL Cholesterol 35.25 mg/dL (100-129)
== END 2024-08-12 23:59 | disposition home or self-care (01) ==
LOC: RAD 12:35
PROVIDERS: PCP Physician Assistant; Visit Provider Physician Assistant
DX: R55 Syncope and collapse (principal)
CPT/HCPCS: 36415; 70551; 80053; 80061; 85025